=== PATIENT | male | born 1960 | race Caucasian/White ===

== ENCOUNTER 2017-08-15 18:11 | Inpatient (IN) | payer MEDICARE, OTHER ==
[2017-08-15 18:50] LABS: % BASOPHILS 1.2 % (0.0-2.0); % EOSINOPHILS 2.5 % (0.0-5.0); % LYMPHOCYTES 40.7 % (20.0-50.0); % MONOCYTES 8.7 % (2.0-10.0); % NEUTROPHILS 46.9 % (40.0-80.0); BASOPHILE ABSOLUTE 0.1 Th/cumm (0-0.2); EOSINOPHILE ABSOLUTE 0.2 Th/cmm (0.1-0.4); HEMATOCRIT 36.7 % (41.0-60); HEMOGLOBIN 12.5 gm/dL (12-16); LYMPHOCYTE ABSOLUTE 3.1 Th/cmm (1.5-3.0); MEAN CELL VOLUME 93.6 fl (80-99); MEAN CORPUSCULAR HEMOGLOBIN 31.7 pg (26.0-30.0); MEAN CORPUSCULAR HGB CONC 33.9 pg (28.0-36.0); MEAN PLATELET VOLUME 7.8 fl; MONOCYTE ABSOLUTE 0.7 Th/cmm (0.3-1.0); NEUTROPHILE ABSOLUTE 3.5 Th/cmm (1.8-8.0); PLATELET COUNT 208 Th/cmm (150-400); RED BLOOD COUNT 3.93 Mil/cmm (4.30-5.70); WHITE BLOOD COUNT 7.6 Th/cmm (4.8-10.8)
--- NOTE | 2017-08-15 19:01 | ED Physician Chart ---
ED Chief Complaint/HPI - Patient Information Date Seen:: 08/15/17 Time Seen:: 18:57 Chief Complaint:: Psychosis History of Present Illness:: 57 yo male who is a resident at a care facility. He was brought to ER for further evaluation due to increased agitation and refusal of medical care. He has history of schizophrenia, hypertension, substance abuse and dementia. Allergies:: Allergies Allergy/AdvReac Type Severity Reaction Status Date / Time No Known Allergies Allergy Verified 08/15/17 18:19 Vitals:: Vital Signs - 8 hr 08/15/17 18:19 Temp 97.7 F HR 67 RR 16 BP 149/9 O2 Sat % 98 ED Review of Systems - Review of Systems General/Constitutional: No fever, No chills Skin: No skin lesions Eyes: No loss of vision ENT: No earache Neck: No neck pain Cardio Vascular: No chest pain Pulmonary: No SOB GI: No nausea, No vomiting Psychiatric: Prior psych history, Anxiety Neurological: No focal symptoms ED Past Medical History - Past Medical History Past Medical History: HTN, Other (schizophrenia, substance abuse, and dementia) Social History: Smoker, Alcohol, Illicit Drug Use Surgical History: None Family Medical History - Family Member Mother History Unknown: Yes ED Physical Exam - Physical Examination General/Constitutional: Awake, Alert Other Gen/Cons comments:: oriented to self only Other Head comments:: right frontal abrasion Eyes: PERRL, EOMI ENMT: External ears, nose nl Neck: Full ROM w/o pain Respiratory: Clear to Auscultation, No Wheeze/Rhonchi/Rales Cardio Vascular: RRR, No murmur, gallop, rubs, NL S1 S2 GI: No tenderness/rebounding/guarding Extremities: normal strength in all extremities Other Neuro/Psych comments:: Oriented to self only, follows command, noncoherent speech ED Labs/Radiology/EKG Results - Lab Results Results: Laboratory Tests 08/15/17 18:42 WBC 7.6 RBC 3.93 L Hgb 12.5 Hct 36.7 L MCV 93.6 MCH 31.7 H MCHC Differential 33.9 RDW 14.0 Plt Count 208 MPV 7.8 Neutrophils % 46.9 Lymphocytes % 40.7 Monocytes % 8.7 Eosinophils % 2.5 Basophils % 1.2 ED Assessment - Assessment General Assessment: 57 yo male has schizophrenia with increased agitation due to UTI. He also has hypokalemia, hypertension, and dementia. Critical Care Time: 45 min Excludes all billable procedures: Yes This condition life threatening/high prob of deterioration: No Assessment/Comments:: CBC, CMP, UA, urine drug screen CXR, EKG [facility] ED Septic Shock - . Is Septic Shock (SBP<90, OR Lactate>4 mmol\L) present?: No - <6hrs of presentation: Vital Signs: Vital Signs - 8 hr 08/15/17 18:19 Temp 97.7 F HR 67 RR 16 BP 149/9 O2 Sat % 98 ED Discharge Plan - Patient Disposition
[2017-08-15 19:06] LABS: ALB/GLOB RATIO 1.2 (1.0-1.8); ALBUMIN 4.3 gm/dL (4.2-5.5); ALKALINE PHOSPHATASE 63 U/L (34-104); ANION GAP 9.1 (7.0-16.0); BILIRUBIN,TOTAL 0.8 mg/dL (0.3-1.0); BUN - UREA NITROGEN 27 mg/dL (7-25); CALCIUM SERUM 9.5 mg/dL (8.6-10.3); CARBON DIOXIDE 25.7 mEq/L (21.0-31.0); CHLORIDE 104 mEq/L (98-107); CREATININE - SERUM 1.4 mg/dL (0.7-1.3); GFR AFRICAN-AMERICAN > 60.0 ml/min (>90); GFR NON AFRICAN-AMERICAN 55.1 ml/min; GLUCOSE 85 mg/dL (70-105); SGOT 50 U/L (13-39); SGPT/ALT 57 U/L (7-52); SODIUM SERUM 136 mEq/L (136-145); TOTAL PROTEIN,SERUM 7.9 gm/dL (6.0-8.3)
[2017-08-15 19:10] LABS: POTASSIUM SERUM 2.8 mEq/L (3.5-5.1)
[2017-08-15] MEDS ORDERED: Potassium Chloride 20 mEq ER Tab PO ONE ×6 (19:18→23:18)
[2017-08-15 19:44] LABS: URINE MICROSCOPIC INDICATED? YES; URINE SOURCE RANDOM
[2017-08-15 19:48] LABS: URINE BILIRUBIN SMALL (NEGATIVE); URINE BLOOD LARGE (NEGATIVE); URINE GLUCOSE (UA) NEGATIVE (NEGATIVE); URINE KETONE NEGATIVE (NEGATIVE); URINE LEUKOCYTE ESTERASE LARGE (NEGATIVE); URINE NITRATE NEGATIVE (NEGATIVE); URINE PH 6.5 (4.6 - 8.0); URINE PROTEIN 100 mg/dL (NEGATIVE)
[2017-08-15 19:56] LABS: AMPHETAMINE URINE NEGATIVE (NEGATIVE); BARBITURATES URINE NEGATIVE (NEGATIVE); BENZODIAZEPINES QUAL URINE POSITIVE (NEGATIVE); CANNABINOID THC NEGATIVE (NEGATIVE); COCAINE METABOLITE QUAL URINE NEGATIVE (NEGATIVE); METHADONE URINE NEGATIVE (NEGATIVE); METHAMPHETAMINES QUAL URINE NEGATIVE (NEGATIVE); OPIATES (MORPHINE) QUAL. URINE POSITIVE (NEGATIVE); PHENCYCLIDINE (PCP) URINE NEGATIVE (NEGATIVE); TRICYCLICS (TCA) QUAL. URINE NEGATIVE (NEGATIVE)
[2017-08-15 19:57] LABS: URINE BACTERIA MODERATE /hpf (NONE SEEN); URINE CLARITY HAZY (CLEAR); URINE COLOR BROWN; URINE EPITHELIAL CELLS FEW /lpf (FEW); URINE RBC >100 /hpf (0-5)
[2017-08-15 19:58] LABS: URINE WBC 50-100 /hpf (0-5)
[2017-08-15] MEDS ORDERED: cefTRIAXone 1 GM in Sodium Chloride 0.9% 50 ML IV ONE (20:29)
[2017-08-15 22:24] VITALS: BP 137/76
[2017-08-15] MEDS ORDERED: Hydrocodone/APAP 5mg/325mg Tab PO PRN ×4 (22:54→23:07)
[2017-08-15] MEDS ORDERED: Magnesium Hydroxide (MOM) 30 mL UDC PO PRN ×2 (23:11)
[2017-08-16] MEDS: Levothyroxine 0.075 Mg Tab PO SCH ×2 (07:11)
--- NOTE | 2017-08-16 07:42 | Diagnostic Imaging Report ---
Portable chest x-ray Time: 1832 hours History: Psychosis Allowing for portable technique the heart size is normal. No focal pulmonary parenchymal processes. No hilar or mediastinal abnormalities. There is evidence for ill-defined 1 cm nodularity overlying the right upper lung. Clinical correlation and comparison with study is recommended. If old studies are not studies available for review CT examination of chest might be helpful. Impression: Ill-defined 1 cm nodularity right upper chest, CT examination recommended.
[2017-08-16] MEDS: Vitamin B Complex w/Vitamin C Tab PO SCH ×2 (08:39)
[2017-08-16] MEDS: Multivitamin w/ Minerals Tab PO SCH ×2 (08:39)
[2017-08-16] MEDS ORDERED: buPROPion XL 150 mg T 24 H PO SCH ×2 (09:00)
[2017-08-16] MEDS ORDERED: Sulfamethoxazole/TMP 800/160mg Tab PO SCH ×2 (09:00)
[2017-08-16 09:23] LABS: % BASOPHILS 1.4 % (0.0-2.0); % EOSINOPHILS 4.1 % (0.0-5.0); % LYMPHOCYTES 31.1 % (20.0-50.0); % MONOCYTES 6.9 % (2.0-10.0); % NEUTROPHILS 56.5 % (40.0-80.0); BASOPHILE ABSOLUTE 0.1 Th/cumm (0-0.2); EOSINOPHILE ABSOLUTE 0.3 Th/cmm (0.1-0.4); HEMATOCRIT 39.7 % (41.0-60); HEMOGLOBIN 13.1 gm/dL (12-16); MEAN CORPUSCULAR HEMOGLOBIN 31.4 pg (26.0-30.0); MEAN CORPUSCULAR HGB CONC 33.1 pg (28.0-36.0); MEAN PLATELET VOLUME 7.7 fl; MONOCYTE ABSOLUTE 0.4 Th/cmm (0.3-1.0); NEUTROPHILE ABSOLUTE 3.7 Th/cmm (1.8-8.0); PLATELET COUNT 216 Th/cmm (150-400); RED BLOOD COUNT 4.17 Mil/cmm (4.30-5.70); RED CELL DISTRIBUTION WIDTH 13.9 % (11.5-20.0); WHITE BLOOD COUNT 6.5 Th/cmm (4.8-10.8)
[2017-08-16 10:11] LABS: ALB/GLOB RATIO 1.1 (1.0-1.8); ALBUMIN 4.3 gm/dL (4.2-5.5); ALKALINE PHOSPHATASE 65 U/L (34-104); ANION GAP 8.9 (7.0-16.0); BILIRUBIN,TOTAL 1.1 mg/dL (0.3-1.0); BUN - UREA NITROGEN 23 mg/dL (7-25); CALCIUM SERUM 9.5 mg/dL (8.6-10.3); CARBON DIOXIDE 24.7 mEq/L (21.0-31.0); CHLORIDE 108 mEq/L (98-107); CREATININE - SERUM 1.1 mg/dL (0.7-1.3); GFR AFRICAN-AMERICAN > 60.0 ml/min (>90); GFR NON AFRICAN-AMERICAN > 60.0 ml/min; GLUCOSE 134 mg/dL (70-105); POTASSIUM SERUM 3.6 mEq/L (3.5-5.1); SGOT 52 U/L (13-39); SGPT/ALT 62 U/L (7-52); SODIUM SERUM 138 mEq/L (136-145); TOTAL PROTEIN,SERUM 8.2 gm/dL (6.0-8.3)
--- NOTE | 2017-08-16 11:35 | Diagnostic Imaging Report ---
Exam: CT examination of the chest HISTORY: Right upper lobe nodule. Total DLP equals 220 CTDI equals 5.2 Findings: Multiple contiguous thin section of the chest were obtained from thoracic outlet to the upper abdomen without the administration of contrast material. No prior studies available comparison. The study demonstrates nodularities with spiculation the right upper lobe measuring 1.7cm and 2.4 cm diameter., The study demonstrate evidence of spiculated nodularity in the left upper lung measuring 1 cm diameter. There is evidence for small subcentimeter nodularities in the left mid lung field. The findings suggestive of neoplastic metastatic disease. No acute pulmonic infiltrates or effusions are noted. Mediastinal structures midline. No abnormal mediastinal adenopathy appreciated, but limited due to lack of contrast material. Normal appearance of great vessels of the neck appreciated. Adenopathy is difficult to exclude due to lack of contrast material. The visualized bony thorax demonstrate no evidence for lytic or blastic lesions. The liver demonstrates low density lesion in the posterior aspect of right lobe of liver measuring 2.5 cm diameter most likely represent cysts but neoplastic component cannot be excluded without the administration of contrast material. The adrenal glands demonstrate the small nodularity in the left adrenal gland approximately 1 cm diameter. The pancreas is diffusely calcified from previous inflammatory changes. There is a large staghorn calculus in the right kidney without obstruction. IMPRESSION: Bilateral metastatic nodularity is high suspicious for neoplastic metastatic process. Right upper lobe masses suspicious for neoplastic metastatic process. Left upper lobe nodule suspicious for neoplastic process. Small subcentimeter nodules in the left mid lower lung.
--- NOTE | 2017-08-16 15:43 | History & Physical ---
ADMIT DATE: INTERNAL MEDICINE CONSULT REFERRING PHYSICIAN: Dr. Volodymyr Pa M.D.. REASON FOR CONSULT: Management of hypertension, UTI, history of dementia. HISTORY OF PRESENT ILLNESS: This is a 57-year-old male who was transferred from care facility with acute psychosis. He does have a history of schizophrenia, dementia, and substance abuse, essential hypertension. The patient is extremely confused, walking in the hallways and not able to provide any significant history. PERTINENT FINDINGS ON LABORATORY WORK: Include a potassium of 2.8, a BUN of 27, and a creatinine of 1.7. AST 50, ALT 57. UA positive for protein, large blood, small bilirubin, large leukocyte esterase, over 100 rbc's, 50-100 wbc's. The patient has been admitted to the [facility] for further management and care. PAST MEDICAL HISTORY: As noted above. History also of anxiety, insomnia, history of previous trauma, history of extrapyramidal and movement disorder, history of ataxia, and muscle weakness. PAST SURGICAL HISTORY: Unknown. FAMILY HISTORY: Likely noncontributory. SOCIAL HISTORY: Unknown as the patient is not able to answer. ALLERGIES: NKDA. OUTPATIENT MEDICATIONS: Albuterol metered dose inhaler 2 puffs every 6 hours as needed, amlodipine 10 daily, Dulcolax 10 mg per rectum q. 72 hours p.r.n. for constipation, Wellbutrin XL 300 mg every day, BuSpar 5 mg t.i.d., clonazepam 2 mg b.i.d., clonidine 0.1 q. 6 hours p.r.n. for SBP greater than 160, hydrochlorothiazide 25 every day, [place] 5/325 one tab q. 4 hours p.r.n. for severe pain, Synthroid 75 mcg daily, Namenda 10 mg every day, multivitamins and minerals daily, Risperdal 2 mg daily and 3 mg at bedtime, Bactrim 1 tab b.i.d., Artane 5 mg b.i.d., vitamin B complex 1 tab every day, Ambien 5 mg at bedtime. REVIEW OF SYSTEMS: A good review of systems was not able to be done given the patient's condition, but he denies any fever or chills. CARDIOVASCULAR: He denies any chest pain or palpitations. PULMONARY: No shortness of breath, no cough. GASTROINTESTINAL: No bowel habit changes. GENITOURINARY: No bladder habit changes. PHYSICAL EXAMINATION: VITAL SIGNS: Temperature 98.0, pulse 66, respirations 20, blood pressure 145/87, satting 98% on room air. GENERAL: Well-nourished, thin male, somewhat disheveled, not in acute distress. HEAD AND NECK: Normocephalic, atraumatic. Pupils reactive to light. Extraocular movements are intact. Oropharynx is moist and clear. CARDIAC: Regular rate and rhythm without any murmurs. S1 and S2 present. LUNGS: Decreased at the bases, but clear to auscultation bilaterally. ABDOMEN: Soft, supple, nontender, nondistended, normoactive bowel sounds. EXTREMITIES: Lower extremities, no pedal edema. NEUROLOGIC: Appears to be intact and nonfocal. LABORATORY DATA: Please refer to the HPI. U-tox was positive for opiates and benzos. There was x-ray done on admission showing ill-defined 1 cm nodularity in the right upper chest. CT examination is recommended. ASSESSMENT: 1. Acute psych decompensation. 2. History of schizophrenia. 3. History of dementia. 4. Essential hypertension.5. Hypokalemia. 6. UTI. 7. Right upper chest nodule. 8. Dehydration/azotemia. PLAN: The patient has been admitted to the [facility] for further management and care. The patient is to continue with current medications as scheduled including his antihypertensives. Given UA results, I will switch the patient to Cipro 250 b.i.d. for 7 days and I will encourage fluid p.o. intake given his renal or his azotemia. Pt will be encouraged to increase p.o. fluid intake. His potassium will be repleted and I will order a CT of the chest to further eval on the right upper lobe nodule. JOB# [id number] NAHOMY
--- NOTE | 2017-08-17 02:12 | Psychosocial Evaluation ---
DATE OF SERVICE: 08/16/2017 IDENTIFYING DATA: The patient is a 57-year-old male, resident of [facility]. Information obtained by directly interviewing the patient and reviewing the admission papers. JUSTIFICATION FOR HOSPITALIZATION: The patient is admitted on a voluntary basis in view of his acute agitation and threatening behavior. CHIEF COMPLAINT: "I don't care. I do not have may phone, give me the one right away." HISTORY OF PRESENT ILLNESS: This is the second psychiatric hospitalization to [facility] for this patient who is reported to have been diagnosed to have schizoaffective disorder and the patient is reported to have been threatening and getting easily agitated. Prior to the hospitalization, the patient is reported to have been on the Risperdal as well as the Wellbutrin. The patient is also stating that he is taking 2 mg 3 times a day of the Klonopin. The patient at this time is going to be of control. PAST PSYCHIATRIC HISTORY: Please refer to the above medical history. Physical examination is requested and done by Dr. Gale. SUBSTANCE ABUSE HISTORY: The patient denies use of any drugs or alcohol. LEGAL PROBLEMS: None at this time. STRENGTH AND ASSETS: The patient is motivated. MENTAL STATUS EXAMINATION: The patient is a 57-year-old, looking his stated age, getting easily irritable and angry. Affect is constricted. Insight and judgment at this time are noted to be very much impaired. Impulse control seems to be poor. Coping skills are also noted to be very poor. The patient has been very paranoid and demanding. The patient is not able to contract for safety. The patient's behavior is likely danger to self and others. The patient, however, is alert and oriented x 3. Insight and judgment are very much impaired. Impulse control seems to be very poor. DIAGNOSTIC IMPRESSION: AXIS I. Schizoaffective disorder. AXIS II: None. AXIS III: As per Dr. Gale. IMMEDIATE TREATMENT PLAN: The patient is going to be continued on the Risperdal 2 mg twice a day and the patient's Wellbutrin is going to be gradually decrease to 150 mg once a day, Klonopin is going to be given 0.5 mg twice a day and the patient is going to be closely monitored. Once stabilized, the patient is going to be discharged [facility] to be followed up on an outpatient basis. ESTIMATED LENGTH OF STAY: Length of stay 5-7 days. JOB# [id number]
[2017-08-17] MEDS: Levothyroxine 0.075 Mg Tab PO SCH ×2 (06:45)
[2017-08-17] MEDS: Vitamin B Complex w/Vitamin C Tab PO SCH ×2 (09:22)
[2017-08-17] MEDS: buPROPion XL 150 mg T 24 H PO SCH ×2 (09:22)
[2017-08-17] MEDS: Multivitamin w/ Minerals Tab PO SCH ×2 (09:24)
[2017-08-17 09:49] LABS: ANION GAP 7.8 (7.0-16.0); BUN - UREA NITROGEN 21 mg/dL (7-25); CALCIUM SERUM 9.6 mg/dL (8.6-10.3); CARBON DIOXIDE 27.6 mEq/L (21.0-31.0); CHLORIDE 107 mEq/L (98-107); GFR AFRICAN-AMERICAN > 60.0 ml/min (>90); GFR NON AFRICAN-AMERICAN > 60.0 ml/min; GLUCOSE 91 mg/dL (70-105); POTASSIUM SERUM 3.4 mEq/L (3.5-5.1); SODIUM SERUM 139 mEq/L (136-145)
[2017-08-17] MEDS ORDERED: IOHEXOL 300MG/ML 100 ML VIAL PO ONE ×2 (13:40)
--- NOTE | 2017-08-17 15:04 | Consultation ---
DATE OF CONSULTATION: 08/17/2017 HEMATOLOGY AND ONCOLOGY CONSULTATION REFERRING PHYSICIAN: Dr. Gale. REASON FOR CONSULTATION Lung masses and liver mass, likely metastatic cancer. HISTORY OF PRESENT ILLNESS: The patient is a 57-year-old male with psychosis, hospitalized in the Geropsych unit because of acute psychosis. He has history of schizophrenia, dementia, substance abuse, and his CT scan of the chest showed bilateral upper lobe spiculated lesions and resection through the liver also showed lesion in the right posterior lobe. Therefore, I was asked to evaluate. PAST MEDICAL HISTORY: Anxiety, insomnia, ataxia, muscle weakness. PAST SURGICAL HISTORY: Unknown. SOCIAL HISTORY: Unknown. FAMILY HISTORY: Unknown, the patient is not able to provide any history. History is gathered from the records. PHYSICAL EXAMINATION: GENERAL: He is awake, disheveled. VITAL SIGNS: Stable. HEENT: No evidence of peripheral lymphadenopathy, no cranial nerve palsy. LUNGS: Decreased air entry. ABDOMEN: Soft. No palpable mass. EXTREMITIES: No edema. NERVOUS SYSTEM: Moves 4 extremities. No focal deficits. LABORATORY DATA: CT scan of the chest without contrast showed bilateral upper lobe spiculated nodules and 2.5 cm lesion in the right lobe posterior part. Elevated AST and ALT. Normal CBC. Urinalysis, no evidence of UTI. ASSESSMENT: Bilateral spiculated nodule in both upper lobes of the lung and a 2.5 cm lesion in the right lobe of the liver recently suspicion of metastatic disease. A repeat CT of the abdomen with 3-phase contrast will be required to evaluate for possible hepatoma. I will also obtain alpha fetoprotein and see if the alpha fetoprotein is elevated markedly and the radiological findings are suggestive of hepatoma, then further biopsy is required. However, if there is inconsistency in the results, then CT-guided biopsy from the right lobe of liver lesion will be required to obtain tissue diagnosis. Thank you, Dr. Gale for the opportunity to participate in the care of this interesting case. [facility]# [id number]
[2017-08-17] MEDS ORDERED: Probiotic Screen MC PRN ×2 (17:15)
--- NOTE | 2017-08-17 21:05 | Progress Notes ---
DATE: 08/17/2017 Staff was spoken to. The patient is interviewed. Mood is noted to be irritable. Affect is constricted. The patient is not making much sense. Insight and judgment at this time are noted to be very much impaired. The patient is going on a tangent. Coping skills are noted to be extremely poor. Sleep and appetite are also noted to be poor. The patient has no insight into his illness. Tend to scream and yell at this time. ASSESSMENT: The patient is still grossly psychotic. PLAN: To continue the patient with the current medications. I encouraged the patient to verbalize the concerns. The patient's blood work has been reviewed and is indicating potassium is noted to be low at 2.8, came to 3.6, BUN is noted to be 27, AST is noted to be 50, ALT is noted 57. The patient is going to be closely monitored and encouraged to verbalize the concerns. The patient's urine drug screen is noted to be positive for opiates and benzodiazepines. The patient is still impulsive and psychotic. Plan to continue the patient with the current medications and follow with the supportive therapy. JOB# [id number]
[2017-08-18] MEDS: Levothyroxine 0.075 Mg Tab PO SCH ×2 (06:41)
[2017-08-18] MEDS: Vitamin B Complex w/Vitamin C Tab PO SCH ×2 (08:54)
[2017-08-18] MEDS: buPROPion XL 150 mg T 24 H PO SCH ×2 (08:55)
[2017-08-18] MEDS: Multivitamin w/ Minerals Tab PO SCH ×2 (08:55)
--- NOTE | 2017-08-18 09:31 | Diagnostic Imaging Report ---
CT abdomen and pelvis without and with intravenous contrast Indication: Liver mass, rule out hepatoma Comparison: CT of the chest performed on 08/16/2017, Technique: Axial images were obtained from the lung bases to the bilateral proximal femurs before and following admission of IV contrast including portal venous and delayed phase images. Total DLP 1101, CTD I 28 Findings: Hypoventilatory and atelectatic changes of the lung bases are noted. There is a lobulated 3 x 2.5 cm low-density mass with Hounsfield units consistent with fluid within the right lobe of the liver. Additional subcentimeter low-density lesions are noted, too small to characterize. No evidence of focal splenic lesions. Extensive pancreatic calcifications sequela of old chronic pancreatitis. There is slight prominence of the left lobe of the adrenal gland without evidence of discrete nodule. Multiple bilateral renal cysts are noted and additional low-density lesions too small to characterize is suggestive of cysts. Staghorn Right renal calculus is noted. There is mild right hydronephrosis with areas of cortical thinning seen anteriorly. Mild atherosclerosis is noted. No associated free air or free fluid. Copious stool is seen throughout the colon. No evidence of mesenteric lymphadenopathy. Mild urinary bladder wall thickening is noted. Prostate gland calcifications are noted. Degenerative changes of the spine are noted. IMPRESSION: 3 x 2.5 cm lobulated low-density lesion within the dome of the right lobe of the liver. This lesion demonstrates fluid density without evidence of enhancement and is most suggestive of a liver cyst. Additional subcentimeter low-density lesions are too small to characterize but may represent small cysts. Correlation with liver function tests is recommended. A follow-up CT examination or ultrasound examination in 2-3 months is suggested to ensure long-term stability. Staghorn Right renal calculus with mild right hydronephrosis. Multiple bilateral renal cysts and additional subcentimeter low-density lesions too small to characterize but suggestive of cysts Mild prominence of the left adrenal gland without evidence of a discrete nodule. Extensive pancreatic calcifications occult chronic pancreatitis. Copious amount of stool noted. Mild urinary bladder wall thickening which may be due to chronic inflammatory process.
[2017-08-18] MEDS: Lactobacillus Rhamnosus 10 Billion CFU Capsule PO SCH ×2 (10:30)
[2017-08-18] MEDS ORDERED: Potassium Chloride 20 mEq ER Tab PO ONE ×2 (10:33)
[2017-08-18 11:10] LABS: HEP B CORE IGM Negative (Negative); HEP B SURFACE AB QUANT 5.3 mIU/mL (Immunity>9.9); HEP B SURFACE AG QL Negative (Negative)
[2017-08-18 12:27] LABS: HEP C RNA bDNA QN SEE REF. LAB REPORT
--- NOTE | 2017-08-18 12:27 | General Progress Note ---
Subjective - Review of Systems Service Date: 08/18/17 Objective - Results Result Diagrams: 08/16/17 09:10 08/17/17 09:20 Recent Labs: Laboratory Last Values WBC 6.5 Th/cmm (4.8-10.8) 08/16/17 09:10 RBC 4.17 Mil/cmm (4.30-5.70) L 08/16/17 09:10 Hgb 13.1 gm/dL (12-16) 08/16/17 09:10 Hct 39.7 % (41.0-60) L 08/16/17 09:10 MCV 95.0 fl (80-99) 08/16/17 09:10 MCH 31.4 pg (26.0-30.0) H 08/16/17 09:10 MCHC Differential 33.1 pg (28.0-36.0) 08/16/17 09:10 RDW 13.9 % (11.5-20.0) 08/16/17 09:10 Plt Count 216 Th/cmm (150-400) 08/16/17 09:10 MPV 7.7 fl 08/16/17 09:10 Neutrophils % 56.5 % (40.0-80.0) 08/16/17 09:10 Lymphocytes % 31.1 % (20.0-50.0) 08/16/17 09:10 Monocytes % 6.9 % (2.0-10.0) 08/16/17 09:10 Eosinophils % 4.1 % (0.0-5.0) 08/16/17 09:10 Basophils % 1.4 % (0.0-2.0) 08/16/17 09:10 Sodium 139 mEq/L (136-145) 08/17/17 09:20 Potassium 3.4 mEq/L (3.5-5.1) L 08/17/17 09:20 Chloride 107 mEq/L (98-107) 08/17/17 09:20 Carbon Dioxide 27.6 mEq/L (21.0-31.0) 08/17/17 09:20 Anion Gap 7.8 (7.0-16.0) 08/17/17 09:20 BUN 21 mg/dL (7-25) 08/17/17 09:20 Creatinine 1.0 mg/dL (0.7-1.3) 08/17/17 09:20 Est GFR ( Amer) > 60.0 ml/min (>90) 08/17/17 09:20 Est GFR (Non-Af Amer) > 60.0 ml/min 08/17/17 09:20 BUN/Creatinine Ratio 21.0 08/17/17 09:20 Glucose 91 mg/dL (70-105) 08/17/17 09:20 Hemoglobin A1c % 5.0 % (4.0-6.0) 08/15/17 18:42 Calcium 9.6 mg/dL (8.6-10.3) 08/17/17 09:20 Magnesium 2.0 mg/dL (1.9-2.7) 08/17/17 09:20 Total Bilirubin 1.1 mg/dL (0.3-1.0) H 08/16/17 09:10 AST 52 U/L (13-39) H 08/16/17 09:10 ALT 62 U/L (7-52) H 08/16/17 09:10 Alkaline Phosphatase 65 U/L (34-104) 08/16/17 09:10 Troponin I < 0.01 ng/mL (0.01-0.05) L 08/15/17 18:42 B-Natriuretic Peptide 21.3 pg/mL (5.0-100.0) 08/15/17 18:42 Total Protein 8.2 gm/dL (6.0-8.3) 08/16/17 09:10 Albumin 4.3 gm/dL (4.2-5.5) 08/16/17 09:10 Globulin 3.9 gm/dL 08/16/17 09:10 Albumin/Globulin Ratio 1.1 (1.0-1.8) 08/16/17 09:10 Tumor Marker AFP 2.2 ng/mL (0.0-8.3) 08/17/17 09:20 Carcinoembryonic Ag 2.9 ng/mL (0.0-4.7) 08/17/17 09:20 Urine Source RANDOM 08/15/17 18:49 Urine Color BROWN 08/15/17 18:49 Urine Clarity HAZY (CLEAR) 08/15/17 18:49 Urine pH 6.5 (4.6 - 8.0) 08/15/17 18:49 Ur Specific [place] 1.025 (1.005-1.030) 08/15/17 18:49 Urine Protein 100 mg/dL (NEGATIVE) H 08/15/17 18:49 Urine Glucose (UA) NEGATIVE mg/dL (NEGATIVE) 08/15/17 18:49 Urine Ketones NEGATIVE mg/dL (NEGATIVE) 08/15/17 18:49 Urine Blood LARGE (NEGATIVE) H 08/15/17 18:49 Urine Nitrate NEGATIVE (NEGATIVE) 08/15/17 18:49 Urine Bilirubin SMALL (NEGATIVE) H 08/15/17 18:49 Urine Urobilinogen 1.0 E.U./dL (0.2 - 1.0) 08/15/17 18:49 Ur Leukocyte Esterase LARGE (NEGATIVE) H 08/15/17 18:49 Urine RBC >100 /hpf (0-5) H 08/15/17 18:49 Urine WBC 50-100 /hpf (0-5) H 08/15/17 18:49 Ur Epithelial Cells FEW /lpf (FEW) 08/15/17 18:49 Urine Bacteria MODERATE /hpf (NONE SEEN) 08/15/17 18:49 Urine Opiates Screen POSITIVE (NEGATIVE) H 08/15/17 18:49 Urine Methadone Screen NEGATIVE (NEGATIVE) 08/15/17 18:49 Ur Barbiturates Screen NEGATIVE (NEGATIVE) 08/15/17 18:49 Ur Tricyclics Screen NEGATIVE (NEGATIVE) 08/15/17 18:49 Ur Phencyclidine Scrn NEGATIVE (NEGATIVE) 08/15/17 18:49 Amphetamines Screen NEGATIVE (NEGATIVE) 08/15/17 18:49 U Methamphetamines Scrn NEGATIVE (NEGATIVE) 08/15/17 18:49 U Benzodiazepines Scrn POSITIVE (NEGATIVE) H 08/15/17 18:49 U Cocaine Metab Screen NEGATIVE (NEGATIVE) 08/15/17 18:49 U Cannabinoids Screen NEGATIVE (NEGATIVE) 08/15/17 18:49 Hep Bs Antigen Negative (Negative) 08/17/17 09:20 Hep Bs Antibody, Quant 5.3 mIU/mL (Immunity>9.9) L 08/17/17 09:20 Hep B Core IgM Ab Negative (Negative) 08/17/17 09:20 - Physical Exam Vitals and I&O: Vital Signs Temp 97.9 F 08/18/17 06:48 Pulse 79 08/18/17 06:48 Resp 20 08/18/17 08:00 BP 134/73 08/18/17 06:48 Pulse Ox 98 08/18/17 06:48 Intake & Output 08/17/17 08/18/17 08/18/17 18:59 06:59 18:59 Intake Total 1100 120 Balance 1100 120 Weight (lbs) 68.492 kg Intake: Oral 1100 120 Other: # Voids 4 3 # Bowel Movements 1 Active Medications: Current Medications Acetaminophen (Tylenol) 650 mg PO Q4HR PRN PRN Reason: Mild Pain / Temp above 100 Stop: 10/14/17 23:10 Acetaminophen/Hydrocodone Bitart ([place] 5mg/325mg) 1 tab PO Q4H PRN PRN Reason: Pain (Moderate) Stop: 10/14/17 23:06 Last Admin: 08/16/17 01:53 Dose: 1 tab Amlodipine Besylate (Norvasc) 10 mg PO DAILY [facility] Stop: 10/15/17 08:59 Last Admin: 08/17/17 10:40 Dose: Not Given Bisacodyl (Dulcolax 10 Mg Supp) 10 mg RC DAILY PRN PRN Reason: Constipation Stop: 10/14/17 22:42 Bupropion HCl (Wellbutrin Xl) 150 mg PO DAILY KRISTY PRN Reason: Protocol Stop: 10/15/17 08:59 Last Admin: 08/18/17 08:55 Dose: 150 mg Buspirone HCl (Buspar) 10 mg PO TID KRISTY PRN Reason: Protocol Stop: 10/15/17 08:59 Last Admin: 08/18/17 08:54 Dose: 10 mg Ciprofloxacin (Cipro) 250 mg PO BID [facility] Stop: 10/15/17 10:14 Last Admin: 08/18/17 08:55 Dose: 250 mg Clonazepam (Klonopin) 0.5 mg PO BID PRN; Protocol PRN Reason: Anxiety Stop: 10/15/17 08:59 Last Admin: 08/17/17 10:47 Dose: 0.5 mg Hydrochlorothiazide (Hctz) 25 mg PO DAILY [facility] Stop: 10/15/17 08:59 Last Admin: 08/17/17 09:22 Dose: 25 mg Lactobacillus Rhamnosus (Culturelle) 1 each PO DAILY [facility] Stop: 10/17/17 08:59 Levothyroxine Sodium (Synthroid) 0.075 mg PO QDAC KRISTY Stop: 10/15/17 07:29 Last Admin: 08/18/17 06:41 Dose: 0.075 mg Lorazepam (Ativan) 0.5 mg PO Q4HR PRN; Protocol PRN Reason: Agitation Stop: 10/16/17 10:52 Last Admin: 08/17/17 11:19 Dose: 0.5 mg Magnesium Hydroxide (Milk Of Magnesia) 30 ml PO HS PRN PRN Reason: Constipation Miscellaneous (Probiotic Screen) 1 ea [facility] PRN PRN PRN Reason: PROTOCOL Stop: 10/16/17 17:14 Risperidone (Risperdal) 2 mg PO BID KRISTY PRN Reason: Protocol Stop: 10/15/17 16:59 Last Admin: 08/18/17 09:08 Dose: 1 mg Vitamin B Complex/Vit C/Folic Acid (Vitamin B Complex W/Vitamin C) 1 tab PO DAILY KRISTY Stop: 10/15/17 08:59 Last Admin: 08/18/17 08:54 Dose: 1 tab Zolpidem Tartrate (Ambien) 5 mg PO HS PRN PRN Reason: Insomnia Stop: 10/14/17 20:32 Last Admin: 08/16/17 21:18 Dose: 5 mg - Procedures Procedures: Procedures Procedure Code Date INDIVID PSYCHOTHERAP NEC 94.39 09/27/08 OTHER GROUP THERAPY 94.44 10/14/08 RECREATIONAL THERAPY 93.81 10/14/08 Assessment/Plan - Problem List Patient Problems: All Active Problems AGITATION AND UNCOOPERATIVE WITH CARE (Acute) - Assessment Assessment: * Multiple spiculated lung nodules, likely malignant * Liver cyst. CT contrast showed no evidence of mass * Psychosis Will need biopsy from lung nodules by radiologist
[2017-08-18 13:45] LABS: INR 1.08 (0.5-1.4); PROTHROMBIN TIME (TEST) 11.2 SECONDS (9.5-11.5)
[2017-08-18] MEDS ORDERED: Haloperidol Lactate 5 mg/mL 1mL Vial ONE ×2 (17:04)
[2017-08-18] MEDS ORDERED: Haloperidol Lactate 5 mg/mL 1mL Vial IM ONE ×2 (17:04)
--- NOTE | 2017-08-18 17:49 | Progress Notes ---
DATE: 08/18/2017 SUBJECTIVE: Staff was spoken to. The patient is interviewed. Mood is noted to be irritable. Affect is constricted. Insight and judgment are noted to be still impaired. Impulse control seems to be limited. Continues to be very paranoid and pacing most of the time on the unit. No side effects to the medications are noted. ASSESSMENT: The patient is still psychotic and impulsive. PLAN: To continue the patient with the current medications and follow. JOB# [id number]
[2017-08-19] MEDS: Levothyroxine 0.075 Mg Tab PO SCH ×2 (06:36)
[2017-08-19] MEDS: Multivitamin w/ Minerals Tab PO SCH ×2 (09:55)
[2017-08-19] MEDS: Vitamin B Complex w/Vitamin C Tab PO SCH ×2 (09:56)
[2017-08-19] MEDS: buPROPion XL 150 mg T 24 H PO SCH ×2 (09:59)
[2017-08-19] MEDS: Lactobacillus Rhamnosus 10 Billion CFU Capsule PO SCH ×2 (10:00)
--- NOTE | 2017-08-19 15:25 | General Progress Note ---
Subjective - Review of Systems Service Date: 08/19/17 Objective - Results Result Diagrams: 08/16/17 09:10 08/17/17 09:20 Recent Labs: Laboratory Last Values WBC 6.5 Th/cmm (4.8-10.8) 08/16/17 09:10 RBC 4.17 Mil/cmm (4.30-5.70) L 08/16/17 09:10 Hgb 13.1 gm/dL (12-16) 08/16/17 09:10 Hct 39.7 % (41.0-60) L 08/16/17 09:10 MCV 95.0 fl (80-99) 08/16/17 09:10 MCH 31.4 pg (26.0-30.0) H 08/16/17 09:10 MCHC Differential 33.1 pg (28.0-36.0) 08/16/17 09:10 RDW 13.9 % (11.5-20.0) 08/16/17 09:10 Plt Count 216 Th/cmm (150-400) 08/16/17 09:10 MPV 7.7 fl 08/16/17 09:10 Neutrophils % 56.5 % (40.0-80.0) 08/16/17 09:10 Lymphocytes % 31.1 % (20.0-50.0) 08/16/17 09:10 Monocytes % 6.9 % (2.0-10.0) 08/16/17 09:10 Eosinophils % 4.1 % (0.0-5.0) 08/16/17 09:10 Basophils % 1.4 % (0.0-2.0) 08/16/17 09:10 PT 11.2 SECONDS (9.5-11.5) 08/18/17 13:14 INR 1.08 (0.5-1.4) 08/18/17 13:14 PTT (Actin FS) 32.3 SECONDS (26.0-38.0) 08/18/17 13:14 Sodium 139 mEq/L (136-145) 08/17/17 09:20 Potassium 3.4 mEq/L (3.5-5.1) L 08/17/17 09:20 Chloride 107 mEq/L (98-107) 08/17/17 09:20 Carbon Dioxide 27.6 mEq/L (21.0-31.0) 08/17/17 09:20 Anion Gap 7.8 (7.0-16.0) 08/17/17 09:20 BUN 21 mg/dL (7-25) 08/17/17 09:20 Creatinine 1.0 mg/dL (0.7-1.3) 08/17/17 09:20 Est GFR ( Amer) > 60.0 ml/min (>90) 08/17/17 09:20 Est GFR (Non-Af Amer) > 60.0 ml/min 08/17/17 09:20 BUN/Creatinine Ratio 21.0 08/17/17 09:20 Glucose 91 mg/dL (70-105) 08/17/17 09:20 POC Glucose 132 MG/DL (70 - 105) H 08/19/17 06:19 Hemoglobin A1c % 5.0 % (4.0-6.0) 08/15/17 18:42 Calcium 9.6 mg/dL (8.6-10.3) 08/17/17 09:20 Magnesium 2.0 mg/dL (1.9-2.7) 08/17/17 09:20 Total Bilirubin 1.1 mg/dL (0.3-1.0) H 08/16/17 09:10 AST 52 U/L (13-39) H 08/16/17 09:10 ALT 62 U/L (7-52) H 08/16/17 09:10 Alkaline Phosphatase 65 U/L (34-104) 08/16/17 09:10 Troponin I < 0.01 ng/mL (0.01-0.05) L 08/15/17 18:42 B-Natriuretic Peptide 21.3 pg/mL (5.0-100.0) 08/15/17 18:42 Total Protein 8.2 gm/dL (6.0-8.3) 08/16/17 09:10 Albumin 4.3 gm/dL (4.2-5.5) 08/16/17 09:10 Globulin 3.9 gm/dL 08/16/17 09:10 Albumin/Globulin Ratio 1.1 (1.0-1.8) 08/16/17 09:10 Tumor Marker AFP 2.2 ng/mL (0.0-8.3) 08/17/17 09:20 Carcinoembryonic Ag 2.9 ng/mL (0.0-4.7) 08/17/17 09:20 Urine Source RANDOM 08/15/17 18:49 Urine Color BROWN 08/15/17 18:49 Urine Clarity HAZY (CLEAR) 08/15/17 18:49 Urine pH 6.5 (4.6 - 8.0) 08/15/17 18:49 Ur Specific [place] 1.025 (1.005-1.030) 08/15/17 18:49 Urine Protein 100 mg/dL (NEGATIVE) H 08/15/17 18:49 Urine Glucose (UA) NEGATIVE mg/dL (NEGATIVE) 08/15/17 18:49 Urine Ketones NEGATIVE mg/dL (NEGATIVE) 08/15/17 18:49 Urine Blood LARGE (NEGATIVE) H 08/15/17 18:49 Urine Nitrate NEGATIVE (NEGATIVE) 08/15/17 18:49 Urine Bilirubin SMALL (NEGATIVE) H 08/15/17 18:49 Urine Urobilinogen 1.0 E.U./dL (0.2 - 1.0) 08/15/17 18:49 Ur Leukocyte Esterase LARGE (NEGATIVE) H 08/15/17 18:49 Urine RBC >100 /hpf (0-5) H 08/15/17 18:49 Urine WBC 50-100 /hpf (0-5) H 08/15/17 18:49 Ur Epithelial Cells FEW /lpf (FEW) 08/15/17 18:49 Urine Bacteria MODERATE /hpf (NONE SEEN) 08/15/17 18:49 Urine Opiates Screen POSITIVE (NEGATIVE) H 08/15/17 18:49 Urine Methadone Screen NEGATIVE (NEGATIVE) 08/15/17 18:49 Ur Barbiturates Screen NEGATIVE (NEGATIVE) 08/15/17 18:49 Ur Tricyclics Screen NEGATIVE (NEGATIVE) 08/15/17 18:49 Ur Phencyclidine Scrn NEGATIVE (NEGATIVE) 08/15/17 18:49 Amphetamines Screen NEGATIVE (NEGATIVE) 08/15/17 18:49 U Methamphetamines Scrn NEGATIVE (NEGATIVE) 08/15/17 18:49 U Benzodiazepines Scrn POSITIVE (NEGATIVE) H 08/15/17 18:49 U Cocaine Metab Screen NEGATIVE (NEGATIVE) 08/15/17 18:49 U Cannabinoids Screen NEGATIVE (NEGATIVE) 08/15/17 18:49 Hep Bs Antigen Negative (Negative) 08/17/17 09:20 Hep Bs Antibody, Quant 5.3 mIU/mL (Immunity>9.9) L 08/17/17 09:20 Hep B Core IgM Ab Negative (Negative) 08/17/17 09:20 HCV RNA Quant (bDNA) SEE REF. LAB REPORT 08/17/17 09:20 - Physical Exam Vitals and I&O: Vital Signs Temp 97.6 F 08/18/17 20:00 Pulse 64 08/19/17 10:00 Resp 20 08/19/17 08:00 BP 139/80 08/19/17 10:00 Pulse Ox 98 08/18/17 20:00 Intake & Output 08/18/17 08/19/17 08/19/17 18:59 06:59 18:59 Intake Total 120 Balance 120 Intake: Oral 120 Other: # Voids 3 Active Medications: Current Medications Acetaminophen (Tylenol) 650 mg PO Q4HR PRN PRN Reason: Mild Pain / Temp above 100 Stop: 10/14/17 23:10 Acetaminophen/Hydrocodone Bitart ([place] 5mg/325mg) 1 tab PO Q4H PRN PRN Reason: Pain (Moderate) Stop: 10/14/17 23:06 Last Admin: 08/16/17 01:53 Dose: 1 tab Amlodipine Besylate (Norvasc) 10 mg PO DAILY [facility] Stop: 10/15/17 08:59 Last Admin: 08/19/17 10:00 Dose: 10 mg Bisacodyl (Dulcolax 10 Mg Supp) 10 mg RC DAILY PRN PRN Reason: Constipation Stop: 10/14/17 22:42 Buspirone HCl (Buspar) 10 mg PO TID KRISTY PRN Reason: Protocol Stop: 10/15/17 08:59 Last Admin: 08/19/17 14:20 Dose: 10 mg Ciprofloxacin (Cipro) 250 mg PO BID KRISTY Stop: 10/15/17 10:14 Last Admin: 08/19/17 09:56 Dose: 250 mg Clonazepam (Klonopin) 0.5 mg PO BID PRN; Protocol PRN Reason: Anxiety Stop: 10/15/17 08:59 Last Admin: 08/17/17 10:47 Dose: 0.5 mg Divalproex Sodium (Depakote Dr) 250 mg PO BID KRISTY PRN Reason: Protocol Stop: 10/18/17 16:59 Hydrochlorothiazide (Hctz) 25 mg PO DAILY KRISTY Stop: 10/15/17 08:59 Last Admin: 08/19/17 09:57 Dose: 25 mg Lactobacillus Rhamnosus (Culturelle) 1 each PO DAILY KRISTY Stop: 10/17/17 08:59 Last Admin: 08/19/17 10:00 Dose: 1 each Levothyroxine Sodium (Synthroid) 0.075 mg PO QDAC KRISTY Stop: 10/15/17 07:29 Last Admin: 08/19/17 06:36 Dose: 0.075 mg Lorazepam (Ativan) 0.5 mg PO Q4HR PRN; Protocol PRN Reason: Agitation Stop: 10/16/17 10:52 Last Admin: 08/17/17 11:19 Dose: 0.5 mg Magnesium Hydroxide (Milk Of Magnesia) 30 ml PO HS PRN PRN Reason: Constipation Miscellaneous (Probiotic Screen) 1 ea MC PRN PRN PRN Reason: PROTOCOL Stop: 10/16/17 17:14 Risperidone (Risperdal) 2 mg PO BID KRISTY PRN Reason: Protocol Stop: 10/15/17 16:59 Last Admin: 08/19/17 09:54 Dose: 2 mg Vitamin B Complex/Vit C/Folic Acid (Vitamin B Complex W/Vitamin C) 1 tab PO DAILY KRISTY Stop: 10/15/17 08:59 Last Admin: 08/19/17 09:56 Dose: 1 tab Zolpidem Tartrate (Ambien) 5 mg PO HS PRN PRN Reason: Insomnia Stop: 10/14/17 20:32 Last Admin: 08/16/17 21:18 Dose: 5 mg - Procedures Procedures: Procedures Procedure Code Date INDIVID PSYCHOTHERAP NEC 94.39 09/27/08 OTHER GROUP THERAPY 94.44 10/14/08 RECREATIONAL THERAPY 93.81 10/14/08 Assessment/Plan - Problem List Patient Problems: All Active Problems AGITATION AND UNCOOPERATIVE WITH CARE (Acute) - Assessment Assessment: * Multiple spiculated lung nodules, likely malignant * Liver cyst. CT contrast showed no evidence of mass * Psychosis Will need biopsy from nodules in tertiary care center
--- NOTE | 2017-08-19 22:34 | Progress Notes ---
DATE: 08/19/2017 SUBJECTIVE: Staff was spoken to. The patient is interviewed. Mood is noted to be irritable. Affect is constricted. Continues to be irritable and angry. Affect is very labile. The patient is going on a tangent. The patient's coping skills are noted to be very poor. The patient has not been able to contract for safety at this time. The patient's bupropion is going to be discontinued and the patient is going to be started on the Depakote for possible mood swings. ASSESSMENT: The patient is still grossly psychotic and impulsive. PLAN: To continue the patient with supportive therapy, encouraged the patient to verbalize the concerns rather than to act out. Please note that the patient is not ready to be discharged to a lower level of care in view of his acute mood swings and paranoid delusions. JOB# [id number]
[2017-08-20] MEDS: Levothyroxine 0.075 Mg Tab PO SCH ×2 (06:33)
[2017-08-20] MEDS: Lactobacillus Rhamnosus 10 Billion CFU Capsule PO SCH ×2 (08:25)
[2017-08-20] MEDS: Vitamin B Complex w/Vitamin C Tab PO SCH ×2 (08:26)
[2017-08-20] MEDS: Multivitamin w/ Minerals Tab PO SCH ×2 (10:04)
--- NOTE | 2017-08-20 16:39 | General Progress Note ---
Subjective - Review of Systems Service Date: 08/20/17 Subjective: irritable Objective - Results Result Diagrams: 08/16/17 09:10 08/17/17 09:20 Recent Labs: Laboratory Last Values WBC 6.5 Th/cmm (4.8-10.8) 08/16/17 09:10 RBC 4.17 Mil/cmm (4.30-5.70) L 08/16/17 09:10 Hgb 13.1 gm/dL (12-16) 08/16/17 09:10 Hct 39.7 % (41.0-60) L 08/16/17 09:10 MCV 95.0 fl (80-99) 08/16/17 09:10 MCH 31.4 pg (26.0-30.0) H 08/16/17 09:10 MCHC Differential 33.1 pg (28.0-36.0) 08/16/17 09:10 RDW 13.9 % (11.5-20.0) 08/16/17 09:10 Plt Count 216 Th/cmm (150-400) 08/16/17 09:10 MPV 7.7 fl 08/16/17 09:10 Neutrophils % 56.5 % (40.0-80.0) 08/16/17 09:10 Lymphocytes % 31.1 % (20.0-50.0) 08/16/17 09:10 Monocytes % 6.9 % (2.0-10.0) 08/16/17 09:10 Eosinophils % 4.1 % (0.0-5.0) 08/16/17 09:10 Basophils % 1.4 % (0.0-2.0) 08/16/17 09:10 PT 11.2 SECONDS (9.5-11.5) 08/18/17 13:14 INR 1.08 (0.5-1.4) 08/18/17 13:14 PTT (Actin FS) 32.3 SECONDS (26.0-38.0) 08/18/17 13:14 Sodium 139 mEq/L (136-145) 08/17/17 09:20 Potassium 3.4 mEq/L (3.5-5.1) L 08/17/17 09:20 Chloride 107 mEq/L (98-107) 08/17/17 09:20 Carbon Dioxide 27.6 mEq/L (21.0-31.0) 08/17/17 09:20 Anion Gap 7.8 (7.0-16.0) 08/17/17 09:20 BUN 21 mg/dL (7-25) 08/17/17 09:20 Creatinine 1.0 mg/dL (0.7-1.3) 08/17/17 09:20 Est GFR ( Amer) > 60.0 ml/min (>90) 08/17/17 09:20 Est GFR (Non-Af Amer) > 60.0 ml/min 08/17/17 09:20 BUN/Creatinine Ratio 21.0 08/17/17 09:20 Glucose 91 mg/dL (70-105) 08/17/17 09:20 POC Glucose 132 MG/DL (70 - 105) H 08/19/17 06:19 Hemoglobin A1c % 5.0 % (4.0-6.0) 08/15/17 18:42 Calcium 9.6 mg/dL (8.6-10.3) 08/17/17 09:20 Magnesium 2.0 mg/dL (1.9-2.7) 08/17/17 09:20 Total Bilirubin 1.1 mg/dL (0.3-1.0) H 08/16/17 09:10 AST 52 U/L (13-39) H 08/16/17 09:10 ALT 62 U/L (7-52) H 08/16/17 09:10 Alkaline Phosphatase 65 U/L (34-104) 08/16/17 09:10 Troponin I < 0.01 ng/mL (0.01-0.05) L 08/15/17 18:42 B-Natriuretic Peptide 21.3 pg/mL (5.0-100.0) 08/15/17 18:42 Total Protein 8.2 gm/dL (6.0-8.3) 08/16/17 09:10 Albumin 4.3 gm/dL (4.2-5.5) 08/16/17 09:10 Globulin 3.9 gm/dL 08/16/17 09:10 Albumin/Globulin Ratio 1.1 (1.0-1.8) 08/16/17 09:10 Tumor Marker AFP 2.2 ng/mL (0.0-8.3) 08/17/17 09:20 Carcinoembryonic Ag 2.9 ng/mL (0.0-4.7) 08/17/17 09:20 Urine Source RANDOM 08/15/17 18:49 Urine Color BROWN 08/15/17 18:49 Urine Clarity HAZY (CLEAR) 08/15/17 18:49 Urine pH 6.5 (4.6 - 8.0) 08/15/17 18:49 Ur Specific [place] 1.025 (1.005-1.030) 08/15/17 18:49 Urine Protein 100 mg/dL (NEGATIVE) H 08/15/17 18:49 Urine Glucose (UA) NEGATIVE mg/dL (NEGATIVE) 08/15/17 18:49 Urine Ketones NEGATIVE mg/dL (NEGATIVE) 08/15/17 18:49 Urine Blood LARGE (NEGATIVE) H 08/15/17 18:49 Urine Nitrate NEGATIVE (NEGATIVE) 08/15/17 18:49 Urine Bilirubin SMALL (NEGATIVE) H 08/15/17 18:49 Urine Urobilinogen 1.0 E.U./dL (0.2 - 1.0) 08/15/17 18:49 Ur Leukocyte Esterase LARGE (NEGATIVE) H 08/15/17 18:49 Urine RBC >100 /hpf (0-5) H 08/15/17 18:49 Urine WBC 50-100 /hpf (0-5) H 08/15/17 18:49 Ur Epithelial Cells FEW /lpf (FEW) 08/15/17 18:49 Urine Bacteria MODERATE /hpf (NONE SEEN) 08/15/17 18:49 Urine Opiates Screen POSITIVE (NEGATIVE) H 08/15/17 18:49 Urine Methadone Screen NEGATIVE (NEGATIVE) 08/15/17 18:49 Ur Barbiturates Screen NEGATIVE (NEGATIVE) 08/15/17 18:49 Ur Tricyclics Screen NEGATIVE (NEGATIVE) 08/15/17 18:49 Ur Phencyclidine Scrn NEGATIVE (NEGATIVE) 08/15/17 18:49 Amphetamines Screen NEGATIVE (NEGATIVE) 08/15/17 18:49 U Methamphetamines Scrn NEGATIVE (NEGATIVE) 08/15/17 18:49 U Benzodiazepines Scrn POSITIVE (NEGATIVE) H 08/15/17 18:49 U Cocaine Metab Screen NEGATIVE (NEGATIVE) 08/15/17 18:49 U Cannabinoids Screen NEGATIVE (NEGATIVE) 08/15/17 18:49 Hep Bs Antigen Negative (Negative) 08/17/17 09:20 Hep Bs Antibody, Quant 5.3 mIU/mL (Immunity>9.9) L 08/17/17 09:20 Hep B Core IgM Ab Negative (Negative) 08/17/17 09:20 HCV RNA Quant (bDNA) SEE REF. LAB REPORT 08/17/17 09:20 - Physical Exam Vitals and I&O: Vital Signs Temp 98 F 08/20/17 14:00 Pulse 58 08/20/17 14:00 Resp 20 08/20/17 14:00 BP 137/80 08/20/17 14:00 Pulse Ox 97 08/20/17 14:00 Intake & Output 08/19/17 08/20/17 08/20/17 18:59 06:59 18:59 Intake Total 1320 Balance 1320 Weight (lbs) 68.492 kg Intake: Oral 1320 Other: # Voids 3 3 # Bowel Movements 1 0 Active Medications: Current Medications Acetaminophen (Tylenol) 650 mg PO Q4HR PRN PRN Reason: Mild Pain / Temp above 100 Stop: 10/14/17 23:10 Acetaminophen/Hydrocodone Bitart ([place] 5mg/325mg) 1 tab PO Q4H PRN PRN Reason: Pain (Moderate) Stop: 10/14/17 23:06 Last Admin: 08/16/17 01:53 Dose: 1 tab Amlodipine Besylate (Norvasc) 10 mg PO DAILY [facility] Stop: 10/15/17 08:59 Last Admin: 08/20/17 10:01 Dose: 10 mg Bisacodyl (Dulcolax 10 Mg Supp) 10 mg RC DAILY PRN PRN Reason: Constipation Stop: 10/14/17 22:42 Buspirone HCl (Buspar) 10 mg PO TID KRISTY PRN Reason: Protocol Stop: 10/15/17 08:59 Last Admin: 08/20/17 13:18 Dose: 10 mg Ciprofloxacin (Cipro) 250 mg PO BID [facility] Stop: 10/15/17 10:14 Last Admin: 08/20/17 16:25 Dose: 250 mg Clonazepam (Klonopin) 0.5 mg PO BID PRN; Protocol PRN Reason: Anxiety Stop: 10/15/17 08:59 Last Admin: 08/20/17 16:26 Dose: 0.5 mg Divalproex Sodium (Depakote Dr) 250 mg PO BID KRISTY PRN Reason: Protocol Stop: 10/18/17 16:59 Last Admin: 08/20/17 16:25 Dose: 250 mg Hydrochlorothiazide (Hctz) 25 mg PO DAILY KRISTY Stop: 10/15/17 08:59 Last Admin: 08/20/17 10:03 Dose: 25 mg Lactobacillus Rhamnosus (Culturelle) 1 each PO DAILY KRISTY Stop: 10/17/17 08:59 Last Admin: 08/20/17 08:25 Dose: 1 each Levothyroxine Sodium (Synthroid) 0.075 mg PO QDAC KRISTY Stop: 10/15/17 07:29 Last Admin: 08/20/17 06:33 Dose: 0.075 mg Lorazepam (Ativan) 0.5 mg PO Q4HR PRN; Protocol PRN Reason: Agitation Stop: 10/16/17 10:52 Last Admin: 08/20/17 02:45 Dose: 0.5 mg Magnesium Hydroxide (Milk Of Magnesia) 30 ml PO HS PRN PRN Reason: Constipation Miscellaneous (Probiotic Screen) 1 ea MC PRN PRN PRN Reason: PROTOCOL Stop: 10/16/17 17:14 Risperidone (Risperdal) 2 mg PO BID KRISTY PRN Reason: Protocol Stop: 10/15/17 16:59 Last Admin: 08/20/17 16:25 Dose: 2 mg Vitamin B Complex/Vit C/Folic Acid (Vitamin B Complex W/Vitamin C) 1 tab PO DAILY KRISTY Stop: 10/15/17 08:59 Last Admin: 08/20/17 08:26 Dose: 1 tab Zolpidem Tartrate (Ambien) 5 mg PO HS PRN PRN Reason: Insomnia Stop: 10/14/17 20:32 Last Admin: 08/16/17 21:18 Dose: 5 mg - Procedures Procedures: Procedures Procedure Code Date INDIVID PSYCHOTHERAP NEC 94.39 09/27/08 OTHER GROUP THERAPY 94.44 10/14/08 RECREATIONAL THERAPY 93.81 10/14/08 Assessment/Plan - Problem List Patient Problems: All Active Problems AGITATION AND UNCOOPERATIVE WITH CARE (Acute) - Assessment Assessment: * Multiple spiculated lung nodules, likely malignant * Liver cyst. CT contrast showed no evidence of mass * Psychosis Will need biopsy from nodules in tertiary care center
--- NOTE | 2017-08-20 21:55 | Progress Notes ---
DATE: 08/20/2017 Staff was spoken to. The patient is interviewed. Mood is noted to be irritable. Affect is constricted. Insight and judgment at this time are noted to be still impaired. The patient has paranoid delusions. The patient is pacing most of the time on the unit. The patient is currently on 2 mg twice a day and the Risperdal and has been able to tolerate the medication. The aggressive behavior seems to be coming under control after the Depakote has been placed. ASSESSMENT: The patient is still psychotic and impulsive. PLAN: To continue the patient with supportive therapy and followup. JOB# [id number]
[2017-08-21] MEDS: Levothyroxine 0.075 Mg Tab PO SCH ×2 (06:47)
[2017-08-21] MEDS: Vitamin B Complex w/Vitamin C Tab PO SCH ×2 (08:39)
[2017-08-21] MEDS: Multivitamin w/ Minerals Tab PO SCH ×2 (08:40)
[2017-08-21] MEDS: Lactobacillus Rhamnosus 10 Billion CFU Capsule PO SCH ×2 (08:43)
--- NOTE | 2017-08-22 03:25 | Progress Notes ---
DATE: 08/21/2017 SUBJECTIVE: Staff was spoken to. The patient is interviewed. Mood is irritable. Affect is constricted. Insight and judgment at this time are noted to be still impaired. Mood swings are still a problem. No side effects to the medications are noted. The patient has been having difficult time to cope with the stress. The patient at this time is on Risperdal and Depakote. Depakote is going to be gradually increased to 3 times a day and the patient is going to be followed up with supportive therapy. ASSESSMENT: The patient is still having mood swings and psychosis. PLAN: To continue the patient with the supportive therapy. I encouraged the patient to verbalize the concerns rather than to act out. JOB# [id number]
[2017-08-22] MEDS: Levothyroxine 0.075 Mg Tab PO SCH ×2 (06:44)
[2017-08-22] MEDS: Lactobacillus Rhamnosus 10 Billion CFU Capsule PO SCH ×2 (08:29)
[2017-08-22] MEDS: Multivitamin w/ Minerals Tab PO SCH ×2 (08:29)
[2017-08-22] MEDS: Vitamin B Complex w/Vitamin C Tab PO SCH ×2 (08:31)
--- NOTE | 2017-08-22 10:21 | General Progress Note ---
Subjective - Review of Systems Service Date: 08/22/17 Subjective: irritable Objective - Results Result Diagrams: 08/16/17 09:10 08/17/17 09:20 Recent Labs: Laboratory Last Values WBC 6.5 Th/cmm (4.8-10.8) 08/16/17 09:10 RBC 4.17 Mil/cmm (4.30-5.70) L 08/16/17 09:10 Hgb 13.1 gm/dL (12-16) 08/16/17 09:10 Hct 39.7 % (41.0-60) L 08/16/17 09:10 MCV 95.0 fl (80-99) 08/16/17 09:10 MCH 31.4 pg (26.0-30.0) H 08/16/17 09:10 MCHC Differential 33.1 pg (28.0-36.0) 08/16/17 09:10 RDW 13.9 % (11.5-20.0) 08/16/17 09:10 Plt Count 216 Th/cmm (150-400) 08/16/17 09:10 MPV 7.7 fl 08/16/17 09:10 Neutrophils % 56.5 % (40.0-80.0) 08/16/17 09:10 Lymphocytes % 31.1 % (20.0-50.0) 08/16/17 09:10 Monocytes % 6.9 % (2.0-10.0) 08/16/17 09:10 Eosinophils % 4.1 % (0.0-5.0) 08/16/17 09:10 Basophils % 1.4 % (0.0-2.0) 08/16/17 09:10 PT 11.2 SECONDS (9.5-11.5) 08/18/17 13:14 INR 1.08 (0.5-1.4) 08/18/17 13:14 PTT (Actin FS) 32.3 SECONDS (26.0-38.0) 08/18/17 13:14 Sodium 139 mEq/L (136-145) 08/17/17 09:20 Potassium 3.4 mEq/L (3.5-5.1) L 08/17/17 09:20 Chloride 107 mEq/L (98-107) 08/17/17 09:20 Carbon Dioxide 27.6 mEq/L (21.0-31.0) 08/17/17 09:20 Anion Gap 7.8 (7.0-16.0) 08/17/17 09:20 BUN 21 mg/dL (7-25) 08/17/17 09:20 Creatinine 1.0 mg/dL (0.7-1.3) 08/17/17 09:20 Est GFR ( Amer) > 60.0 ml/min (>90) 08/17/17 09:20 Est GFR (Non-Af Amer) > 60.0 ml/min 08/17/17 09:20 BUN/Creatinine Ratio 21.0 08/17/17 09:20 Glucose 91 mg/dL (70-105) 08/17/17 09:20 POC Glucose 132 MG/DL (70 - 105) H 08/19/17 06:19 Hemoglobin A1c % 5.0 % (4.0-6.0) 08/15/17 18:42 Calcium 9.6 mg/dL (8.6-10.3) 08/17/17 09:20 Magnesium 2.0 mg/dL (1.9-2.7) 08/17/17 09:20 Total Bilirubin 1.1 mg/dL (0.3-1.0) H 08/16/17 09:10 AST 52 U/L (13-39) H 08/16/17 09:10 ALT 62 U/L (7-52) H 08/16/17 09:10 Alkaline Phosphatase 65 U/L (34-104) 08/16/17 09:10 Troponin I < 0.01 ng/mL (0.01-0.05) L 08/15/17 18:42 B-Natriuretic Peptide 21.3 pg/mL (5.0-100.0) 08/15/17 18:42 Total Protein 8.2 gm/dL (6.0-8.3) 08/16/17 09:10 Albumin 4.3 gm/dL (4.2-5.5) 08/16/17 09:10 Globulin 3.9 gm/dL 08/16/17 09:10 Albumin/Globulin Ratio 1.1 (1.0-1.8) 08/16/17 09:10 Tumor Marker AFP 2.2 ng/mL (0.0-8.3) 08/17/17 09:20 Carcinoembryonic Ag 2.9 ng/mL (0.0-4.7) 08/17/17 09:20 Urine Source RANDOM 08/15/17 18:49 Urine Color BROWN 08/15/17 18:49 Urine Clarity HAZY (CLEAR) 08/15/17 18:49 Urine pH 6.5 (4.6 - 8.0) 08/15/17 18:49 Ur Specific [place] 1.025 (1.005-1.030) 08/15/17 18:49 Urine Protein 100 mg/dL (NEGATIVE) H 08/15/17 18:49 Urine Glucose (UA) NEGATIVE mg/dL (NEGATIVE) 08/15/17 18:49 Urine Ketones NEGATIVE mg/dL (NEGATIVE) 08/15/17 18:49 Urine Blood LARGE (NEGATIVE) H 08/15/17 18:49 Urine Nitrate NEGATIVE (NEGATIVE) 08/15/17 18:49 Urine Bilirubin SMALL (NEGATIVE) H 08/15/17 18:49 Urine Urobilinogen 1.0 E.U./dL (0.2 - 1.0) 08/15/17 18:49 Ur Leukocyte Esterase LARGE (NEGATIVE) H 08/15/17 18:49 Urine RBC >100 /hpf (0-5) H 08/15/17 18:49 Urine WBC 50-100 /hpf (0-5) H 08/15/17 18:49 Ur Epithelial Cells FEW /lpf (FEW) 08/15/17 18:49 Urine Bacteria MODERATE /hpf (NONE SEEN) 08/15/17 18:49 Urine Opiates Screen POSITIVE (NEGATIVE) H 08/15/17 18:49 Urine Methadone Screen NEGATIVE (NEGATIVE) 08/15/17 18:49 Ur Barbiturates Screen NEGATIVE (NEGATIVE) 08/15/17 18:49 Ur Tricyclics Screen NEGATIVE (NEGATIVE) 08/15/17 18:49 Ur Phencyclidine Scrn NEGATIVE (NEGATIVE) 08/15/17 18:49 Amphetamines Screen NEGATIVE (NEGATIVE) 08/15/17 18:49 U Methamphetamines Scrn NEGATIVE (NEGATIVE) 08/15/17 18:49 U Benzodiazepines Scrn POSITIVE (NEGATIVE) H 08/15/17 18:49 U Cocaine Metab Screen NEGATIVE (NEGATIVE) 08/15/17 18:49 U Cannabinoids Screen NEGATIVE (NEGATIVE) 08/15/17 18:49 Hep Bs Antigen Negative (Negative) 08/17/17 09:20 Hep Bs Antibody, Quant 5.3 mIU/mL (Immunity>9.9) L 08/17/17 09:20 Hep B Core IgM Ab Negative (Negative) 08/17/17 09:20 HCV RNA Quant (bDNA) SEE REF. LAB REPORT 08/17/17 09:20 - Physical Exam Vitals and I&O: Vital Signs Temp 98.2 F 08/22/17 06:28 Pulse 61 08/22/17 08:31 Resp 20 08/22/17 06:28 BP 143/85 08/22/17 08:31 Pulse Ox 97 08/22/17 06:28 Intake & Output 08/21/17 08/22/17 08/22/17 18:59 06:59 18:59 Intake Total 300 Balance 300 Intake: Oral 300 Other: # Voids 1 # Bowel Movements 0 Active Medications: Current Medications Acetaminophen (Tylenol) 650 mg PO Q4HR PRN PRN Reason: Mild Pain / Temp above 100 Stop: 10/14/17 23:10 Acetaminophen/Hydrocodone Bitart ([place] 5mg/325mg) 1 tab PO Q4H PRN PRN Reason: Pain (Moderate) Stop: 10/14/17 23:06 Last Admin: 08/16/17 01:53 Dose: 1 tab Amlodipine Besylate (Norvasc) 10 mg PO DAILY [facility] Stop: 10/15/17 08:59 Last Admin: 08/22/17 08:31 Dose: 10 mg Benazepril HCl (Lotensin) 10 mg PO DAILY [facility] Stop: 10/20/17 16:29 Last Admin: 08/22/17 08:30 Dose: 10 mg Bisacodyl (Dulcolax 10 Mg Supp) 10 mg RC DAILY PRN PRN Reason: Constipation Stop: 10/14/17 22:42 Buspirone HCl (Buspar) 10 mg PO TID [facility] PRN Reason: Protocol Stop: 10/15/17 08:59 Last Admin: 08/22/17 08:31 Dose: 10 mg Ciprofloxacin (Cipro) 250 mg PO BID [facility] Stop: 10/15/17 10:14 Last Admin: 08/22/17 08:30 Dose: 250 mg Clonazepam (Klonopin) 0.5 mg PO BID PRN; Protocol PRN Reason: Anxiety Stop: 10/15/17 08:59 Last Admin: 08/21/17 16:42 Dose: 0.5 mg Divalproex Sodium (Depakote Dr) 250 mg PO TID [facility] PRN Reason: Protocol Stop: 10/20/17 13:59 Last Admin: 08/22/17 08:30 Dose: 250 mg Hydrochlorothiazide (Hctz) 25 mg PO DAILY [facility] Stop: 10/15/17 08:59 Last Admin: 08/22/17 08:31 Dose: 25 mg Lactobacillus Rhamnosus (Culturelle) 1 each PO DAILY [facility] Stop: 10/17/17 08:59 Last Admin: 08/22/17 08:29 Dose: 1 each Levothyroxine Sodium (Synthroid) 0.075 mg PO QDAC [facility] Stop: 10/15/17 07:29 Last Admin: 08/22/17 06:44 Dose: 0.075 mg Lorazepam (Ativan) 0.5 mg PO Q4HR PRN; Protocol PRN Reason: Agitation Stop: 10/16/17 10:52 Last Admin: 08/20/17 02:45 Dose: 0.5 mg Magnesium Hydroxide (Milk Of Magnesia) 30 ml PO HS PRN PRN Reason: Constipation Miscellaneous (Probiotic Screen) 1 ea [facility] PRN PRN PRN Reason: PROTOCOL Stop: 10/16/17 17:14 Risperidone (Risperdal) 2 mg PO BID [facility] PRN Reason: Protocol Stop: 10/15/17 16:59 Last Admin: 08/22/17 08:29 Dose: 2 mg Vitamin B Complex/Vit C/Folic Acid (Vitamin B Complex W/Vitamin C) 1 tab PO DAILY [facility] Stop: 10/15/17 08:59 Last Admin: 08/22/17 08:31 Dose: 1 tab Zolpidem Tartrate (Ambien) 5 mg PO HS PRN PRN Reason: Insomnia Stop: 10/14/17 20:32 Last Admin: 08/16/17 21:18 Dose: 5 mg - Procedures Procedures: Procedures Procedure Code Date INDIVID PSYCHOTHERAP NEC 94.39 09/27/08 OTHER GROUP THERAPY 94.44 10/14/08 RECREATIONAL THERAPY 93.81 10/14/08 Assessment/Plan - Problem List Patient Problems: All Active Problems AGITATION AND UNCOOPERATIVE WITH CARE (Acute) - Assessment Assessment: * Multiple spiculated lung nodules, likely malignant * Liver cyst. CT contrast showed no evidence of mass * Psychosis Will need biopsy from nodules in tertiary care center
--- NOTE | 2017-08-22 10:21 | General Progress Note ---
Subjective - Review of Systems Service Date: 08/22/17 Subjective: irritable Objective - Results Result Diagrams: 08/16/17 09:10 08/17/17 09:20 Recent Labs: Laboratory Last Values WBC 6.5 Th/cmm (4.8-10.8) 08/16/17 09:10 RBC 4.17 Mil/cmm (4.30-5.70) L 08/16/17 09:10 Hgb 13.1 gm/dL (12-16) 08/16/17 09:10 Hct 39.7 % (41.0-60) L 08/16/17 09:10 MCV 95.0 fl (80-99) 08/16/17 09:10 MCH 31.4 pg (26.0-30.0) H 08/16/17 09:10 MCHC Differential 33.1 pg (28.0-36.0) 08/16/17 09:10 RDW 13.9 % (11.5-20.0) 08/16/17 09:10 Plt Count 216 Th/cmm (150-400) 08/16/17 09:10 MPV 7.7 fl 08/16/17 09:10 Neutrophils % 56.5 % (40.0-80.0) 08/16/17 09:10 Lymphocytes % 31.1 % (20.0-50.0) 08/16/17 09:10 Monocytes % 6.9 % (2.0-10.0) 08/16/17 09:10 Eosinophils % 4.1 % (0.0-5.0) 08/16/17 09:10 Basophils % 1.4 % (0.0-2.0) 08/16/17 09:10 PT 11.2 SECONDS (9.5-11.5) 08/18/17 13:14 INR 1.08 (0.5-1.4) 08/18/17 13:14 PTT (Actin FS) 32.3 SECONDS (26.0-38.0) 08/18/17 13:14 Sodium 139 mEq/L (136-145) 08/17/17 09:20 Potassium 3.4 mEq/L (3.5-5.1) L 08/17/17 09:20 Chloride 107 mEq/L (98-107) 08/17/17 09:20 Carbon Dioxide 27.6 mEq/L (21.0-31.0) 08/17/17 09:20 Anion Gap 7.8 (7.0-16.0) 08/17/17 09:20 BUN 21 mg/dL (7-25) 08/17/17 09:20 Creatinine 1.0 mg/dL (0.7-1.3) 08/17/17 09:20 Est GFR ( Amer) > 60.0 ml/min (>90) 08/17/17 09:20 Est GFR (Non-Af Amer) > 60.0 ml/min 08/17/17 09:20 BUN/Creatinine Ratio 21.0 08/17/17 09:20 Glucose 91 mg/dL (70-105) 08/17/17 09:20 POC Glucose 132 MG/DL (70 - 105) H 08/19/17 06:19 Hemoglobin A1c % 5.0 % (4.0-6.0) 08/15/17 18:42 Calcium 9.6 mg/dL (8.6-10.3) 08/17/17 09:20 Magnesium 2.0 mg/dL (1.9-2.7) 08/17/17 09:20 Total Bilirubin 1.1 mg/dL (0.3-1.0) H 08/16/17 09:10 AST 52 U/L (13-39) H 08/16/17 09:10 ALT 62 U/L (7-52) H 08/16/17 09:10 Alkaline Phosphatase 65 U/L (34-104) 08/16/17 09:10 Troponin I < 0.01 ng/mL (0.01-0.05) L 08/15/17 18:42 B-Natriuretic Peptide 21.3 pg/mL (5.0-100.0) 08/15/17 18:42 Total Protein 8.2 gm/dL (6.0-8.3) 08/16/17 09:10 Albumin 4.3 gm/dL (4.2-5.5) 08/16/17 09:10 Globulin 3.9 gm/dL 08/16/17 09:10 Albumin/Globulin Ratio 1.1 (1.0-1.8) 08/16/17 09:10 Tumor Marker AFP 2.2 ng/mL (0.0-8.3) 08/17/17 09:20 Carcinoembryonic Ag 2.9 ng/mL (0.0-4.7) 08/17/17 09:20 Urine Source RANDOM 08/15/17 18:49 Urine Color BROWN 08/15/17 18:49 Urine Clarity HAZY (CLEAR) 08/15/17 18:49 Urine pH 6.5 (4.6 - 8.0) 08/15/17 18:49 Ur Specific [place] 1.025 (1.005-1.030) 08/15/17 18:49 Urine Protein 100 mg/dL (NEGATIVE) H 08/15/17 18:49 Urine Glucose (UA) NEGATIVE mg/dL (NEGATIVE) 08/15/17 18:49 Urine Ketones NEGATIVE mg/dL (NEGATIVE) 08/15/17 18:49 Urine Blood LARGE (NEGATIVE) H 08/15/17 18:49 Urine Nitrate NEGATIVE (NEGATIVE) 08/15/17 18:49 Urine Bilirubin SMALL (NEGATIVE) H 08/15/17 18:49 Urine Urobilinogen 1.0 E.U./dL (0.2 - 1.0) 08/15/17 18:49 Ur Leukocyte Esterase LARGE (NEGATIVE) H 08/15/17 18:49 Urine RBC >100 /hpf (0-5) H 08/15/17 18:49 Urine WBC 50-100 /hpf (0-5) H 08/15/17 18:49 Ur Epithelial Cells FEW /lpf (FEW) 08/15/17 18:49 Urine Bacteria MODERATE /hpf (NONE SEEN) 08/15/17 18:49 Urine Opiates Screen POSITIVE (NEGATIVE) H 08/15/17 18:49 Urine Methadone Screen NEGATIVE (NEGATIVE) 08/15/17 18:49 Ur Barbiturates Screen NEGATIVE (NEGATIVE) 08/15/17 18:49 Ur Tricyclics Screen NEGATIVE (NEGATIVE) 08/15/17 18:49 Ur Phencyclidine Scrn NEGATIVE (NEGATIVE) 08/15/17 18:49 Amphetamines Screen NEGATIVE (NEGATIVE) 08/15/17 18:49 U Methamphetamines Scrn NEGATIVE (NEGATIVE) 08/15/17 18:49 U Benzodiazepines Scrn POSITIVE (NEGATIVE) H 08/15/17 18:49 U Cocaine Metab Screen NEGATIVE (NEGATIVE) 08/15/17 18:49 U Cannabinoids Screen NEGATIVE (NEGATIVE) 08/15/17 18:49 Hep Bs Antigen Negative (Negative) 08/17/17 09:20 Hep Bs Antibody, Quant 5.3 mIU/mL (Immunity>9.9) L 08/17/17 09:20 Hep B Core IgM Ab Negative (Negative) 08/17/17 09:20 HCV RNA Quant (bDNA) SEE REF. LAB REPORT 08/17/17 09:20 - Physical Exam Vitals and I&O: Vital Signs Temp 98.2 F 08/22/17 06:28 Pulse 61 08/22/17 08:31 Resp 20 08/22/17 06:28 BP 143/85 08/22/17 08:31 Pulse Ox 97 08/22/17 06:28 Intake & Output 08/21/17 08/22/17 08/22/17 18:59 06:59 18:59 Intake Total 300 Balance 300 Intake: Oral 300 Other: # Voids 1 # Bowel Movements 0 Active Medications: Current Medications Acetaminophen (Tylenol) 650 mg PO Q4HR PRN PRN Reason: Mild Pain / Temp above 100 Stop: 10/14/17 23:10 Acetaminophen/Hydrocodone Bitart ([place] 5mg/325mg) 1 tab PO Q4H PRN PRN Reason: Pain (Moderate) Stop: 10/14/17 23:06 Last Admin: 08/16/17 01:53 Dose: 1 tab Amlodipine Besylate (Norvasc) 10 mg PO DAILY [facility] Stop: 10/15/17 08:59 Last Admin: 08/22/17 08:31 Dose: 10 mg Benazepril HCl (Lotensin) 10 mg PO DAILY [facility] Stop: 10/20/17 16:29 Last Admin: 08/22/17 08:30 Dose: 10 mg Bisacodyl (Dulcolax 10 Mg Supp) 10 mg RC DAILY PRN PRN Reason: Constipation Stop: 10/14/17 22:42 Buspirone HCl (Buspar) 10 mg PO TID [facility] PRN Reason: Protocol Stop: 10/15/17 08:59 Last Admin: 08/22/17 08:31 Dose: 10 mg Ciprofloxacin (Cipro) 250 mg PO BID [facility] Stop: 10/15/17 10:14 Last Admin: 08/22/17 08:30 Dose: 250 mg Clonazepam (Klonopin) 0.5 mg PO BID PRN; Protocol PRN Reason: Anxiety Stop: 10/15/17 08:59 Last Admin: 08/21/17 16:42 Dose: 0.5 mg Divalproex Sodium (Depakote Dr) 250 mg PO TID [facility] PRN Reason: Protocol Stop: 10/20/17 13:59 Last Admin: 08/22/17 08:30 Dose: 250 mg Hydrochlorothiazide (Hctz) 25 mg PO DAILY [facility] Stop: 10/15/17 08:59 Last Admin: 08/22/17 08:31 Dose: 25 mg Lactobacillus Rhamnosus (Culturelle) 1 each PO DAILY [facility] Stop: 10/17/17 08:59 Last Admin: 08/22/17 08:29 Dose: 1 each Levothyroxine Sodium (Synthroid) 0.075 mg PO QDAC [facility] Stop: 10/15/17 07:29 Last Admin: 08/22/17 06:44 Dose: 0.075 mg Lorazepam (Ativan) 0.5 mg PO Q4HR PRN; Protocol PRN Reason: Agitation Stop: 10/16/17 10:52 Last Admin: 08/20/17 02:45 Dose: 0.5 mg Magnesium Hydroxide (Milk Of Magnesia) 30 ml PO HS PRN PRN Reason: Constipation Miscellaneous (Probiotic Screen) 1 ea MC PRN PRN PRN Reason: PROTOCOL Stop: 10/16/17 17:14 Risperidone (Risperdal) 2 mg PO BID [facility] PRN Reason: Protocol Stop: 10/15/17 16:59 Last Admin: 08/22/17 08:29 Dose: 2 mg Vitamin B Complex/Vit C/Folic Acid (Vitamin B Complex W/Vitamin C) 1 tab PO DAILY [facility] Stop: 10/15/17 08:59 Last Admin: 08/22/17 08:31 Dose: 1 tab Zolpidem Tartrate (Ambien) 5 mg PO HS PRN PRN Reason: Insomnia Stop: 10/14/17 20:32 Last Admin: 08/16/17 21:18 Dose: 5 mg - Procedures Procedures: Procedures Procedure Code Date INDIVID PSYCHOTHERAP NEC 94.39 09/27/08 OTHER GROUP THERAPY 94.44 10/14/08 RECREATIONAL THERAPY 93.81 10/14/08 Assessment/Plan - Problem List Patient Problems: All Active Problems AGITATION AND UNCOOPERATIVE WITH CARE (Acute) - Assessment Assessment: * Multiple spiculated lung nodules, likely malignant * Liver cyst. CT contrast showed no evidence of mass * Psychosis Will need biopsy from nodules in tertiary care center
--- NOTE | 2017-08-22 20:41 | Progress Notes ---
DATE: 08/22/2017 PSYCHIATRIC PROGRESS NOTE SUBJECTIVE: Staff was spoken to. The patient is interviewed. Mood is noted to be irritable. Affect is constricted. The patient is stating that he needs to get the shot and he needs to be taken care of the injections, not with the pain medications. The patient has been focused on pain pills this morning. Paranoid delusions are noted. Insight and judgment were noted to be improving. No side effects to the medications are noted. The patient is currently on the valproic acid 250 mg 3 times a day and patient has also been given the Risperdal 2 mg twice a day. Plan to check the Depakote level. I encouraged the patient to verbalize the concerns rather than to act out. The patient is fixated also on the Wellbutrin. ASSESSMENT: The patient is still psychotic and mood swings are coming under control. PLAN: To continue the patient with the supportive therapy. I encouraged the patient to verbalize the concerns rather than to act out. [facility]# [id number]
[2017-08-23] MEDS: Levothyroxine 0.075 Mg Tab PO SCH ×2 (06:59)
[2017-08-23] MEDS: Lactobacillus Rhamnosus 10 Billion CFU Capsule PO SCH ×2 (08:31)
[2017-08-23] MEDS: Multivitamin w/ Minerals Tab PO SCH ×2 (08:31)
[2017-08-23] MEDS: Vitamin B Complex w/Vitamin C Tab PO SCH ×2 (08:32)
[2017-08-23] MEDS ORDERED: Hydrocodone/APAP 5mg/325mg Tab PO PRN ×2 (14:08)
--- NOTE | 2017-08-23 15:43 | General Progress Note ---
Subjective - Review of Systems Service Date: 08/23/17 Subjective: irritable Objective - Results Result Diagrams: 08/16/17 09:10 08/17/17 09:20 Recent Labs: Laboratory Last Values WBC 6.5 Th/cmm (4.8-10.8) 08/16/17 09:10 RBC 4.17 Mil/cmm (4.30-5.70) L 08/16/17 09:10 Hgb 13.1 gm/dL (12-16) 08/16/17 09:10 Hct 39.7 % (41.0-60) L 08/16/17 09:10 MCV 95.0 fl (80-99) 08/16/17 09:10 MCH 31.4 pg (26.0-30.0) H 08/16/17 09:10 MCHC Differential 33.1 pg (28.0-36.0) 08/16/17 09:10 RDW 13.9 % (11.5-20.0) 08/16/17 09:10 Plt Count 216 Th/cmm (150-400) 08/16/17 09:10 MPV 7.7 fl 08/16/17 09:10 Neutrophils % 56.5 % (40.0-80.0) 08/16/17 09:10 Lymphocytes % 31.1 % (20.0-50.0) 08/16/17 09:10 Monocytes % 6.9 % (2.0-10.0) 08/16/17 09:10 Eosinophils % 4.1 % (0.0-5.0) 08/16/17 09:10 Basophils % 1.4 % (0.0-2.0) 08/16/17 09:10 PT 11.2 SECONDS (9.5-11.5) 08/18/17 13:14 INR 1.08 (0.5-1.4) 08/18/17 13:14 PTT (Actin FS) 32.3 SECONDS (26.0-38.0) 08/18/17 13:14 Sodium 139 mEq/L (136-145) 08/17/17 09:20 Potassium 3.4 mEq/L (3.5-5.1) L 08/17/17 09:20 Chloride 107 mEq/L (98-107) 08/17/17 09:20 Carbon Dioxide 27.6 mEq/L (21.0-31.0) 08/17/17 09:20 Anion Gap 7.8 (7.0-16.0) 08/17/17 09:20 BUN 21 mg/dL (7-25) 08/17/17 09:20 Creatinine 1.0 mg/dL (0.7-1.3) 08/17/17 09:20 Est GFR ( Amer) > 60.0 ml/min (>90) 08/17/17 09:20 Est GFR (Non-Af Amer) > 60.0 ml/min 08/17/17 09:20 BUN/Creatinine Ratio 21.0 08/17/17 09:20 Glucose 91 mg/dL (70-105) 08/17/17 09:20 POC Glucose 132 MG/DL (70 - 105) H 08/19/17 06:19 Hemoglobin A1c % 5.0 % (4.0-6.0) 08/15/17 18:42 Calcium 9.6 mg/dL (8.6-10.3) 08/17/17 09:20 Magnesium 2.0 mg/dL (1.9-2.7) 08/17/17 09:20 Total Bilirubin 1.1 mg/dL (0.3-1.0) H 08/16/17 09:10 AST 52 U/L (13-39) H 08/16/17 09:10 ALT 62 U/L (7-52) H 08/16/17 09:10 Alkaline Phosphatase 65 U/L (34-104) 08/16/17 09:10 Troponin I < 0.01 ng/mL (0.01-0.05) L 08/15/17 18:42 B-Natriuretic Peptide 21.3 pg/mL (5.0-100.0) 08/15/17 18:42 Total Protein 8.2 gm/dL (6.0-8.3) 08/16/17 09:10 Albumin 4.3 gm/dL (4.2-5.5) 08/16/17 09:10 Globulin 3.9 gm/dL 08/16/17 09:10 Albumin/Globulin Ratio 1.1 (1.0-1.8) 08/16/17 09:10 Tumor Marker AFP 2.2 ng/mL (0.0-8.3) 08/17/17 09:20 Carcinoembryonic Ag 2.9 ng/mL (0.0-4.7) 08/17/17 09:20 Urine Source RANDOM 08/15/17 18:49 Urine Color BROWN 08/15/17 18:49 Urine Clarity HAZY (CLEAR) 08/15/17 18:49 Urine pH 6.5 (4.6 - 8.0) 08/15/17 18:49 Ur Specific [place] 1.025 (1.005-1.030) 08/15/17 18:49 Urine Protein 100 mg/dL (NEGATIVE) H 08/15/17 18:49 Urine Glucose (UA) NEGATIVE mg/dL (NEGATIVE) 08/15/17 18:49 Urine Ketones NEGATIVE mg/dL (NEGATIVE) 08/15/17 18:49 Urine Blood LARGE (NEGATIVE) H 08/15/17 18:49 Urine Nitrate NEGATIVE (NEGATIVE) 08/15/17 18:49 Urine Bilirubin SMALL (NEGATIVE) H 08/15/17 18:49 Urine Urobilinogen 1.0 E.U./dL (0.2 - 1.0) 08/15/17 18:49 Ur Leukocyte Esterase LARGE (NEGATIVE) H 08/15/17 18:49 Urine RBC >100 /hpf (0-5) H 08/15/17 18:49 Urine WBC 50-100 /hpf (0-5) H 08/15/17 18:49 Ur Epithelial Cells FEW /lpf (FEW) 08/15/17 18:49 Urine Bacteria MODERATE /hpf (NONE SEEN) 08/15/17 18:49 Urine Opiates Screen POSITIVE (NEGATIVE) H 08/15/17 18:49 Urine Methadone Screen NEGATIVE (NEGATIVE) 08/15/17 18:49 Ur Barbiturates Screen NEGATIVE (NEGATIVE) 08/15/17 18:49 Valproic Acid 52.6 ug/mL (50.0-100.0) 08/22/17 10:20 Ur Tricyclics Screen NEGATIVE (NEGATIVE) 08/15/17 18:49 Ur Phencyclidine Scrn NEGATIVE (NEGATIVE) 08/15/17 18:49 Amphetamines Screen NEGATIVE (NEGATIVE) 08/15/17 18:49 U Methamphetamines Scrn NEGATIVE (NEGATIVE) 08/15/17 18:49 U Benzodiazepines Scrn POSITIVE (NEGATIVE) H 08/15/17 18:49 U Cocaine Metab Screen NEGATIVE (NEGATIVE) 08/15/17 18:49 U Cannabinoids Screen NEGATIVE (NEGATIVE) 08/15/17 18:49 Hep Bs Antigen Negative (Negative) 08/17/17 09:20 Hep Bs Antibody, Quant 5.3 mIU/mL (Immunity>9.9) L 08/17/17 09:20 Hep B Core IgM Ab Negative (Negative) 08/17/17 09:20 HCV RNA Quant (bDNA) SEE REF. LAB REPORT 08/17/17 09:20 - Physical Exam Vitals and I&O: Vital Signs Temp 98.0 F 08/23/17 06:10 Pulse 65 08/23/17 08:32 Resp 20 08/23/17 06:10 BP 152/88 08/23/17 08:32 Pulse Ox 96 08/23/17 06:10 Intake & Output 08/22/17 08/23/17 08/23/17 18:59 06:59 18:59 Intake Total 360 Balance 360 Intake: Oral 360 Other: # Voids 1 # Bowel Movements 0 Active Medications: Current Medications Acetaminophen (Tylenol) 650 mg PO Q4HR PRN PRN Reason: Mild Pain / Temp above 100 Stop: 10/14/17 23:10 Acetaminophen/Hydrocodone Bitart ([place] 5mg/325mg) 1 tab PO Q8H PRN PRN Reason: Pain (Severe) Stop: 10/22/17 14:07 Amlodipine Besylate (Norvasc) 10 mg PO DAILY [facility] Stop: 10/15/17 08:59 Last Admin: 08/23/17 08:31 Dose: 10 mg Benazepril HCl (Lotensin) 10 mg PO DAILY [facility] Stop: 10/20/17 16:29 Last Admin: 08/23/17 08:32 Dose: 10 mg Bisacodyl (Dulcolax 10 Mg Supp) 10 mg RC DAILY PRN PRN Reason: Constipation Stop: 10/14/17 22:42 Buspirone HCl (Buspar) 10 mg PO TID [facility] PRN Reason: Protocol Stop: 10/15/17 08:59 Last Admin: 08/23/17 14:25 Dose: 10 mg Ciprofloxacin (Cipro) 250 mg PO BID [facility] Stop: 10/15/17 10:14 Last Admin: 08/23/17 08:30 Dose: 250 mg Clonazepam (Klonopin) 0.5 mg PO BID PRN; Protocol PRN Reason: Anxiety Stop: 10/15/17 08:59 Last Admin: 08/21/17 16:42 Dose: 0.5 mg Divalproex Sodium (Depakote Dr) 250 mg PO TID [facility] PRN Reason: Protocol Stop: 10/20/17 13:59 Last Admin: 08/23/17 14:25 Dose: 250 mg Hydrochlorothiazide (Hctz) 25 mg PO DAILY [facility] Stop: 10/15/17 08:59 Last Admin: 08/23/17 08:32 Dose: 25 mg Lactobacillus Rhamnosus (Culturelle) 1 each PO DAILY [facility] Stop: 10/17/17 08:59 Last Admin: 08/23/17 08:31 Dose: 1 each Levothyroxine Sodium (Synthroid) 0.075 mg PO QDAC [facility] Stop: 10/15/17 07:29 Last Admin: 08/23/17 06:59 Dose: 0.075 mg Lorazepam (Ativan) 0.5 mg PO Q4HR PRN; Protocol PRN Reason: Agitation Stop: 10/16/17 10:52 Last Admin: 08/23/17 14:25 Dose: 0.5 mg Magnesium Hydroxide (Milk Of Magnesia) 30 ml PO HS PRN PRN Reason: Constipation Miscellaneous (Probiotic Screen) 1 ea [facility] PRN PRN PRN Reason: PROTOCOL Stop: 10/16/17 17:14 Risperidone (Risperdal) 2 mg PO BID [facility] PRN Reason: Protocol Stop: 10/15/17 16:59 Last Admin: 08/23/17 08:31 Dose: 2 mg Vitamin B Complex/Vit C/Folic Acid (Vitamin B Complex W/Vitamin C) 1 tab PO DAILY [facility] Stop: 10/15/17 08:59 Last Admin: 08/23/17 08:32 Dose: 1 tab Zolpidem Tartrate (Ambien) 5 mg PO HS PRN PRN Reason: Insomnia Stop: 10/14/17 20:32 Last Admin: 08/22/17 23:44 Dose: 5 mg - Procedures Procedures: Procedures Procedure Code Date INDIVID PSYCHOTHERAP NEC 94.39 09/27/08 OTHER GROUP THERAPY 94.44 10/14/08 RECREATIONAL THERAPY 93.81 10/14/08 Assessment/Plan - Problem List Patient Problems: All Active Problems AGITATION AND UNCOOPERATIVE WITH CARE (Acute) - Assessment Assessment: * Multiple spiculated lung nodules, likely malignant * Liver cyst. CT contrast showed no evidence of mass * Psychosis Will need biopsy from nodules in tertiary care center Nutritional Asmnt/Malnutr-PDOC - Dietary Evaluation Malnutrition Findings (Please click <Entered> for more info): Nutritional Asmnt/Malnutrition Start: 08/23/17 12: 00 Text: Status: Active Freq: Document 08/23/17 12:00 [email or web address] (Rec: 08/23/17 12:35 [email or web address]) Nutritional Asmnt/Malnutrition Patient General Information Diagnosis psychosis Pertinent Medical Hx/Surgical Hx HTN, UTI, dementia, schizophrenia, substance abuse Subjective Information Pt irritable but is eating 100 % of meals. On DM diet despite no hx of DM and glucose: WNL. Current Diet Order/ Nutrition Support [facility] 60 gm Patient / S.O Not Indicated Pertinent Medications cipro, HCTZ, culturelle, synthroid, MOM, vit b/c/folic acid complex Pertinent Labs 08/17 K: 3.4, hgba1c: 5.0- WNL , AST: 52, ALT: 62 Nutritional Hx/Data Height 1.73 m Height (Calculated Centimeters) 172.7 Current Weight (lbs) 68.492 kg Weight (Calculated Kilograms) 68.5 Weight (Calculated Grams) 79953.4 [place] Body Weight 154 lbs % [place] Body Weight 98 Weight Status Approriate GI Symptoms GI Symptoms None Food Allergies No Skin Integrity/Comment: intact, no edema Current %PO Good (75-100%) Estimated Nutritional Goals BEE in Kcals: Using Current wt Calories/Kcals/Kg 25-30 Kcals Calculated [id number] Protein: Using Current wt Protein g/k Protein Calculated 69 Fluid: ml 4603-9362 ml (1 ml/kcal) Nutritional Problem No current Nutrition Prob Problem n/a Etiology n/a Signs/Symptoms: n/a Malnutrition Alert Protein-Calorie Malnutrition N/A Is there a minimum of two criteria No selected? Query Text:Check all the applicable criteria. A minimum of two criteria are recommended for diagnosis of either severe or non-severe malnutrition. Malnutrition Related to Morbid Obesity Malnutrition related to morbid obesity No Intervention/Recommendation Comments 1. Change diet to regular as pt has no hx of DM Expected Outcomes/Goals Expected Outcomes/Goals goals: PO intake >75%, wt stability, labs approach WNL, skin to remain intact
--- NOTE | 2017-08-23 15:43 | General Progress Note ---
Subjective - Review of Systems Service Date: 08/23/17 Subjective: irritable Objective - Results Result Diagrams: 08/16/17 09:10 08/17/17 09:20 Recent Labs: Laboratory Last Values WBC 6.5 Th/cmm (4.8-10.8) 08/16/17 09:10 RBC 4.17 Mil/cmm (4.30-5.70) L 08/16/17 09:10 Hgb 13.1 gm/dL (12-16) 08/16/17 09:10 Hct 39.7 % (41.0-60) L 08/16/17 09:10 MCV 95.0 fl (80-99) 08/16/17 09:10 MCH 31.4 pg (26.0-30.0) H 08/16/17 09:10 MCHC Differential 33.1 pg (28.0-36.0) 08/16/17 09:10 RDW 13.9 % (11.5-20.0) 08/16/17 09:10 Plt Count 216 Th/cmm (150-400) 08/16/17 09:10 MPV 7.7 fl 08/16/17 09:10 Neutrophils % 56.5 % (40.0-80.0) 08/16/17 09:10 Lymphocytes % 31.1 % (20.0-50.0) 08/16/17 09:10 Monocytes % 6.9 % (2.0-10.0) 08/16/17 09:10 Eosinophils % 4.1 % (0.0-5.0) 08/16/17 09:10 Basophils % 1.4 % (0.0-2.0) 08/16/17 09:10 PT 11.2 SECONDS (9.5-11.5) 08/18/17 13:14 INR 1.08 (0.5-1.4) 08/18/17 13:14 PTT (Actin FS) 32.3 SECONDS (26.0-38.0) 08/18/17 13:14 Sodium 139 mEq/L (136-145) 08/17/17 09:20 Potassium 3.4 mEq/L (3.5-5.1) L 08/17/17 09:20 Chloride 107 mEq/L (98-107) 08/17/17 09:20 Carbon Dioxide 27.6 mEq/L (21.0-31.0) 08/17/17 09:20 Anion Gap 7.8 (7.0-16.0) 08/17/17 09:20 BUN 21 mg/dL (7-25) 08/17/17 09:20 Creatinine 1.0 mg/dL (0.7-1.3) 08/17/17 09:20 Est GFR ( Amer) > 60.0 ml/min (>90) 08/17/17 09:20 Est GFR (Non-Af Amer) > 60.0 ml/min 08/17/17 09:20 BUN/Creatinine Ratio 21.0 08/17/17 09:20 Glucose 91 mg/dL (70-105) 08/17/17 09:20 POC Glucose 132 MG/DL (70 - 105) H 08/19/17 06:19 Hemoglobin A1c % 5.0 % (4.0-6.0) 08/15/17 18:42 Calcium 9.6 mg/dL (8.6-10.3) 08/17/17 09:20 Magnesium 2.0 mg/dL (1.9-2.7) 08/17/17 09:20 Total Bilirubin 1.1 mg/dL (0.3-1.0) H 08/16/17 09:10 AST 52 U/L (13-39) H 08/16/17 09:10 ALT 62 U/L (7-52) H 08/16/17 09:10 Alkaline Phosphatase 65 U/L (34-104) 08/16/17 09:10 Troponin I < 0.01 ng/mL (0.01-0.05) L 08/15/17 18:42 B-Natriuretic Peptide 21.3 pg/mL (5.0-100.0) 08/15/17 18:42 Total Protein 8.2 gm/dL (6.0-8.3) 08/16/17 09:10 Albumin 4.3 gm/dL (4.2-5.5) 08/16/17 09:10 Globulin 3.9 gm/dL 08/16/17 09:10 Albumin/Globulin Ratio 1.1 (1.0-1.8) 08/16/17 09:10 Tumor Marker AFP 2.2 ng/mL (0.0-8.3) 08/17/17 09:20 Carcinoembryonic Ag 2.9 ng/mL (0.0-4.7) 08/17/17 09:20 Urine Source RANDOM 08/15/17 18:49 Urine Color BROWN 08/15/17 18:49 Urine Clarity HAZY (CLEAR) 08/15/17 18:49 Urine pH 6.5 (4.6 - 8.0) 08/15/17 18:49 Ur Specific [place] 1.025 (1.005-1.030) 08/15/17 18:49 Urine Protein 100 mg/dL (NEGATIVE) H 08/15/17 18:49 Urine Glucose (UA) NEGATIVE mg/dL (NEGATIVE) 08/15/17 18:49 Urine Ketones NEGATIVE mg/dL (NEGATIVE) 08/15/17 18:49 Urine Blood LARGE (NEGATIVE) H 08/15/17 18:49 Urine Nitrate NEGATIVE (NEGATIVE) 08/15/17 18:49 Urine Bilirubin SMALL (NEGATIVE) H 08/15/17 18:49 Urine Urobilinogen 1.0 E.U./dL (0.2 - 1.0) 08/15/17 18:49 Ur Leukocyte Esterase LARGE (NEGATIVE) H 08/15/17 18:49 Urine RBC >100 /hpf (0-5) H 08/15/17 18:49 Urine WBC 50-100 /hpf (0-5) H 08/15/17 18:49 Ur Epithelial Cells FEW /lpf (FEW) 08/15/17 18:49 Urine Bacteria MODERATE /hpf (NONE SEEN) 08/15/17 18:49 Urine Opiates Screen POSITIVE (NEGATIVE) H 08/15/17 18:49 Urine Methadone Screen NEGATIVE (NEGATIVE) 08/15/17 18:49 Ur Barbiturates Screen NEGATIVE (NEGATIVE) 08/15/17 18:49 Valproic Acid 52.6 ug/mL (50.0-100.0) 08/22/17 10:20 Ur Tricyclics Screen NEGATIVE (NEGATIVE) 08/15/17 18:49 Ur Phencyclidine Scrn NEGATIVE (NEGATIVE) 08/15/17 18:49 Amphetamines Screen NEGATIVE (NEGATIVE) 08/15/17 18:49 U Methamphetamines Scrn NEGATIVE (NEGATIVE) 08/15/17 18:49 U Benzodiazepines Scrn POSITIVE (NEGATIVE) H 08/15/17 18:49 U Cocaine Metab Screen NEGATIVE (NEGATIVE) 08/15/17 18:49 U Cannabinoids Screen NEGATIVE (NEGATIVE) 08/15/17 18:49 Hep Bs Antigen Negative (Negative) 08/17/17 09:20 Hep Bs Antibody, Quant 5.3 mIU/mL (Immunity>9.9) L 08/17/17 09:20 Hep B Core IgM Ab Negative (Negative) 08/17/17 09:20 HCV RNA Quant (bDNA) SEE REF. LAB REPORT 08/17/17 09:20 - Physical Exam Vitals and I&O: Vital Signs Temp 98.0 F 08/23/17 06:10 Pulse 65 08/23/17 08:32 Resp 20 08/23/17 06:10 BP 152/88 08/23/17 08:32 Pulse Ox 96 08/23/17 06:10 Intake & Output 08/22/17 08/23/17 08/23/17 18:59 06:59 18:59 Intake Total 360 Balance 360 Intake: Oral 360 Other: # Voids 1 # Bowel Movements 0 Active Medications: Current Medications Acetaminophen (Tylenol) 650 mg PO Q4HR PRN PRN Reason: Mild Pain / Temp above 100 Stop: 10/14/17 23:10 Acetaminophen/Hydrocodone Bitart ([place] 5mg/325mg) 1 tab PO Q8H PRN PRN Reason: Pain (Severe) Stop: 10/22/17 14:07 Amlodipine Besylate (Norvasc) 10 mg PO DAILY ON LICENSE OF [facility] Stop: 10/15/17 08:59 Last Admin: 08/23/17 08:31 Dose: 10 mg Benazepril HCl (Lotensin) 10 mg PO DAILY ON LICENSE OF [facility] Stop: 10/20/17 16:29 Last Admin: 08/23/17 08:32 Dose: 10 mg Bisacodyl (Dulcolax 10 Mg Supp) 10 mg RC DAILY PRN PRN Reason: Constipation Stop: 10/14/17 22:42 Buspirone HCl (Buspar) 10 mg PO TID ON LICENSE OF [facility] PRN Reason: Protocol Stop: 10/15/17 08:59 Last Admin: 08/23/17 14:25 Dose: 10 mg Ciprofloxacin (Cipro) 250 mg PO BID ON LICENSE OF [facility] Stop: 10/15/17 10:14 Last Admin: 08/23/17 08:30 Dose: 250 mg Clonazepam (Klonopin) 0.5 mg PO BID PRN; Protocol PRN Reason: Anxiety Stop: 10/15/17 08:59 Last Admin: 08/21/17 16:42 Dose: 0.5 mg Divalproex Sodium (Depakote Dr) 250 mg PO TID KRISTY PRN Reason: Protocol Stop: 10/20/17 13:59 Last Admin: 08/23/17 14:25 Dose: 250 mg Hydrochlorothiazide (Hctz) 25 mg PO DAILY KRISTY Stop: 10/15/17 08:59 Last Admin: 08/23/17 08:32 Dose: 25 mg Lactobacillus Rhamnosus (Culturelle) 1 each PO DAILY KRISTY Stop: 10/17/17 08:59 Last Admin: 08/23/17 08:31 Dose: 1 each Levothyroxine Sodium (Synthroid) 0.075 mg PO QDAC KRISTY Stop: 10/15/17 07:29 Last Admin: 08/23/17 06:59 Dose: 0.075 mg Lorazepam (Ativan) 0.5 mg PO Q4HR PRN; Protocol PRN Reason: Agitation Stop: 10/16/17 10:52 Last Admin: 08/23/17 14:25 Dose: 0.5 mg Magnesium Hydroxide (Milk Of Magnesia) 30 ml PO HS PRN PRN Reason: Constipation Miscellaneous (Probiotic Screen) 1 ea MC PRN PRN PRN Reason: PROTOCOL Stop: 10/16/17 17:14 Risperidone (Risperdal) 2 mg PO BID KRISTY PRN Reason: Protocol Stop: 10/15/17 16:59 Last Admin: 08/23/17 08:31 Dose: 2 mg Vitamin B Complex/Vit C/Folic Acid (Vitamin B Complex W/Vitamin C) 1 tab PO DAILY KRISTY Stop: 10/15/17 08:59 Last Admin: 08/23/17 08:32 Dose: 1 tab Zolpidem Tartrate (Ambien) 5 mg PO HS PRN PRN Reason: Insomnia Stop: 10/14/17 20:32 Last Admin: 08/22/17 23:44 Dose: 5 mg - Procedures Procedures: Procedures Procedure Code Date INDIVID PSYCHOTHERAP NEC 94.39 09/27/08 OTHER GROUP THERAPY 94.44 10/14/08 RECREATIONAL THERAPY 93.81 10/14/08 Assessment/Plan - Problem List Patient Problems: All Active Problems AGITATION AND UNCOOPERATIVE WITH CARE (Acute) - Assessment Assessment: * Multiple spiculated lung nodules, likely malignant * Liver cyst. CT contrast showed no evidence of mass * Psychosis Will need biopsy from nodules in tertiary care center Nutritional Asmnt/Malnutr-PDOC - Dietary Evaluation Malnutrition Findings (Please click <Entered> for more info): Nutritional Asmnt/Malnutrition Start: 08/23/17 12: 00 Text: Status: Active Freq: Document 08/23/17 12:00 [email or web address] (Rec: 08/23/17 12:35 [email or web address]) Nutritional Asmnt/Malnutrition Patient General Information Diagnosis psychosis Pertinent Medical Hx/Surgical Hx HTN, UTI, dementia, schizophrenia, substance abuse Subjective Information Pt irritable but is eating 100 % of meals. On DM diet despite no hx of DM and glucose: WNL. Current Diet Order/ Nutrition Support CCHHO 60 gm Patient / S.O Not Indicated Pertinent Medications cipro, HCTZ, culturelle, synthroid, MOM, vit b/c/folic acid complex Pertinent Labs 08/17 K: 3.4, hgba1c: 5.0- WNL , AST: 52, ALT: 62 Nutritional Hx/Data Height 1.73 m Height (Calculated Centimeters) 172.7 Current Weight (lbs) 68.492 kg Weight (Calculated Kilograms) 68.5 Weight (Calculated Grams) 21272.4 [place] Body Weight 154 lbs % [place] Body Weight 98 Weight Status Approriate GI Symptoms GI Symptoms None Food Allergies No Skin Integrity/Comment: intact, no edema Current %PO Good (75-100%) Estimated Nutritional Goals BEE in Kcals: Using Current wt Calories/Kcals/Kg 25-30 Kcals Calculated 2483-4479 Protein: Using Current wt Protein g/k Protein Calculated 69 Fluid: ml 6585-5802 ml (1 ml/kcal) Nutritional Problem No current Nutrition Prob Problem n/a Etiology n/a Signs/Symptoms: n/a Malnutrition Alert Protein-Calorie Malnutrition N/A Is there a minimum of two criteria No selected? Query Text:Check all the applicable criteria. A minimum of two criteria are recommended for diagnosis of either severe or non-severe malnutrition. Malnutrition Related to Morbid Obesity Malnutrition related to morbid obesity No Intervention/Recommendation Comments 1. Change diet to regular as pt has no hx of DM Expected Outcomes/Goals Expected Outcomes/Goals goals: PO intake >75%, wt stability, labs approach WNL, skin to remain intact
--- NOTE | 2017-08-23 15:43 | General Progress Note ---
Subjective - Review of Systems Service Date: 08/23/17 Subjective: irritable Objective - Results Result Diagrams: 08/16/17 09:10 08/17/17 09:20 Recent Labs: Laboratory Last Values WBC 6.5 Th/cmm (4.8-10.8) 08/16/17 09:10 RBC 4.17 Mil/cmm (4.30-5.70) L 08/16/17 09:10 Hgb 13.1 gm/dL (12-16) 08/16/17 09:10 Hct 39.7 % (41.0-60) L 08/16/17 09:10 MCV 95.0 fl (80-99) 08/16/17 09:10 MCH 31.4 pg (26.0-30.0) H 08/16/17 09:10 MCHC Differential 33.1 pg (28.0-36.0) 08/16/17 09:10 RDW 13.9 % (11.5-20.0) 08/16/17 09:10 Plt Count 216 Th/cmm (150-400) 08/16/17 09:10 MPV 7.7 fl 08/16/17 09:10 Neutrophils % 56.5 % (40.0-80.0) 08/16/17 09:10 Lymphocytes % 31.1 % (20.0-50.0) 08/16/17 09:10 Monocytes % 6.9 % (2.0-10.0) 08/16/17 09:10 Eosinophils % 4.1 % (0.0-5.0) 08/16/17 09:10 Basophils % 1.4 % (0.0-2.0) 08/16/17 09:10 PT 11.2 SECONDS (9.5-11.5) 08/18/17 13:14 INR 1.08 (0.5-1.4) 08/18/17 13:14 PTT (Actin FS) 32.3 SECONDS (26.0-38.0) 08/18/17 13:14 Sodium 139 mEq/L (136-145) 08/17/17 09:20 Potassium 3.4 mEq/L (3.5-5.1) L 08/17/17 09:20 Chloride 107 mEq/L (98-107) 08/17/17 09:20 Carbon Dioxide 27.6 mEq/L (21.0-31.0) 08/17/17 09:20 Anion Gap 7.8 (7.0-16.0) 08/17/17 09:20 BUN 21 mg/dL (7-25) 08/17/17 09:20 Creatinine 1.0 mg/dL (0.7-1.3) 08/17/17 09:20 Est GFR ( Amer) > 60.0 ml/min (>90) 08/17/17 09:20 Est GFR (Non-Af Amer) > 60.0 ml/min 08/17/17 09:20 BUN/Creatinine Ratio 21.0 08/17/17 09:20 Glucose 91 mg/dL (70-105) 08/17/17 09:20 POC Glucose 132 MG/DL (70 - 105) H 08/19/17 06:19 Hemoglobin A1c % 5.0 % (4.0-6.0) 08/15/17 18:42 Calcium 9.6 mg/dL (8.6-10.3) 08/17/17 09:20 Magnesium 2.0 mg/dL (1.9-2.7) 08/17/17 09:20 Total Bilirubin 1.1 mg/dL (0.3-1.0) H 08/16/17 09:10 AST 52 U/L (13-39) H 08/16/17 09:10 ALT 62 U/L (7-52) H 08/16/17 09:10 Alkaline Phosphatase 65 U/L (34-104) 08/16/17 09:10 Troponin I < 0.01 ng/mL (0.01-0.05) L 08/15/17 18:42 B-Natriuretic Peptide 21.3 pg/mL (5.0-100.0) 08/15/17 18:42 Total Protein 8.2 gm/dL (6.0-8.3) 08/16/17 09:10 Albumin 4.3 gm/dL (4.2-5.5) 08/16/17 09:10 Globulin 3.9 gm/dL 08/16/17 09:10 Albumin/Globulin Ratio 1.1 (1.0-1.8) 08/16/17 09:10 Tumor Marker AFP 2.2 ng/mL (0.0-8.3) 08/17/17 09:20 Carcinoembryonic Ag 2.9 ng/mL (0.0-4.7) 08/17/17 09:20 Urine Source RANDOM 08/15/17 18:49 Urine Color BROWN 08/15/17 18:49 Urine Clarity HAZY (CLEAR) 08/15/17 18:49 Urine pH 6.5 (4.6 - 8.0) 08/15/17 18:49 Ur Specific [place] 1.025 (1.005-1.030) 08/15/17 18:49 Urine Protein 100 mg/dL (NEGATIVE) H 08/15/17 18:49 Urine Glucose (UA) NEGATIVE mg/dL (NEGATIVE) 08/15/17 18:49 Urine Ketones NEGATIVE mg/dL (NEGATIVE) 08/15/17 18:49 Urine Blood LARGE (NEGATIVE) H 08/15/17 18:49 Urine Nitrate NEGATIVE (NEGATIVE) 08/15/17 18:49 Urine Bilirubin SMALL (NEGATIVE) H 08/15/17 18:49 Urine Urobilinogen 1.0 E.U./dL (0.2 - 1.0) 08/15/17 18:49 Ur Leukocyte Esterase LARGE (NEGATIVE) H 08/15/17 18:49 Urine RBC >100 /hpf (0-5) H 08/15/17 18:49 Urine WBC 50-100 /hpf (0-5) H 08/15/17 18:49 Ur Epithelial Cells FEW /lpf (FEW) 08/15/17 18:49 Urine Bacteria MODERATE /hpf (NONE SEEN) 08/15/17 18:49 Urine Opiates Screen POSITIVE (NEGATIVE) H 08/15/17 18:49 Urine Methadone Screen NEGATIVE (NEGATIVE) 08/15/17 18:49 Ur Barbiturates Screen NEGATIVE (NEGATIVE) 08/15/17 18:49 Valproic Acid 52.6 ug/mL (50.0-100.0) 08/22/17 10:20 Ur Tricyclics Screen NEGATIVE (NEGATIVE) 08/15/17 18:49 Ur Phencyclidine Scrn NEGATIVE (NEGATIVE) 08/15/17 18:49 Amphetamines Screen NEGATIVE (NEGATIVE) 08/15/17 18:49 U Methamphetamines Scrn NEGATIVE (NEGATIVE) 08/15/17 18:49 U Benzodiazepines Scrn POSITIVE (NEGATIVE) H 08/15/17 18:49 U Cocaine Metab Screen NEGATIVE (NEGATIVE) 08/15/17 18:49 U Cannabinoids Screen NEGATIVE (NEGATIVE) 08/15/17 18:49 Hep Bs Antigen Negative (Negative) 08/17/17 09:20 Hep Bs Antibody, Quant 5.3 mIU/mL (Immunity>9.9) L 08/17/17 09:20 Hep B Core IgM Ab Negative (Negative) 08/17/17 09:20 HCV RNA Quant (bDNA) SEE REF. LAB REPORT 08/17/17 09:20 - Physical Exam Vitals and I&O: Vital Signs Temp 98.0 F 08/23/17 06:10 Pulse 65 08/23/17 08:32 Resp 20 08/23/17 06:10 BP 152/88 08/23/17 08:32 Pulse Ox 96 08/23/17 06:10 Intake & Output 08/22/17 08/23/17 08/23/17 18:59 06:59 18:59 Intake Total 360 Balance 360 Intake: Oral 360 Other: # Voids 1 # Bowel Movements 0 Active Medications: Current Medications Acetaminophen (Tylenol) 650 mg PO Q4HR PRN PRN Reason: Mild Pain / Temp above 100 Stop: 10/14/17 23:10 Acetaminophen/Hydrocodone Bitart ([place] 5mg/325mg) 1 tab PO Q8H PRN PRN Reason: Pain (Severe) Stop: 10/22/17 14:07 Amlodipine Besylate (Norvasc) 10 mg PO DAILY [facility] Stop: 10/15/17 08:59 Last Admin: 08/23/17 08:31 Dose: 10 mg Benazepril HCl (Lotensin) 10 mg PO DAILY [facility] Stop: 10/20/17 16:29 Last Admin: 08/23/17 08:32 Dose: 10 mg Bisacodyl (Dulcolax 10 Mg Supp) 10 mg RC DAILY PRN PRN Reason: Constipation Stop: 10/14/17 22:42 Buspirone HCl (Buspar) 10 mg PO TID [facility] PRN Reason: Protocol Stop: 10/15/17 08:59 Last Admin: 08/23/17 14:25 Dose: 10 mg Ciprofloxacin (Cipro) 250 mg PO BID [facility] Stop: 10/15/17 10:14 Last Admin: 08/23/17 08:30 Dose: 250 mg Clonazepam (Klonopin) 0.5 mg PO BID PRN; Protocol PRN Reason: Anxiety Stop: 10/15/17 08:59 Last Admin: 08/21/17 16:42 Dose: 0.5 mg Divalproex Sodium (Depakote Dr) 250 mg PO TID KRISTY PRN Reason: Protocol Stop: 10/20/17 13:59 Last Admin: 08/23/17 14:25 Dose: 250 mg Hydrochlorothiazide (Hctz) 25 mg PO DAILY KRISTY Stop: 10/15/17 08:59 Last Admin: 08/23/17 08:32 Dose: 25 mg Lactobacillus Rhamnosus (Culturelle) 1 each PO DAILY KRISTY Stop: 10/17/17 08:59 Last Admin: 08/23/17 08:31 Dose: 1 each Levothyroxine Sodium (Synthroid) 0.075 mg PO QDAC KRISTY Stop: 10/15/17 07:29 Last Admin: 08/23/17 06:59 Dose: 0.075 mg Lorazepam (Ativan) 0.5 mg PO Q4HR PRN; Protocol PRN Reason: Agitation Stop: 10/16/17 10:52 Last Admin: 08/23/17 14:25 Dose: 0.5 mg Magnesium Hydroxide (Milk Of Magnesia) 30 ml PO HS PRN PRN Reason: Constipation Miscellaneous (Probiotic Screen) 1 ea MC PRN PRN PRN Reason: PROTOCOL Stop: 10/16/17 17:14 Risperidone (Risperdal) 2 mg PO BID KRISTY PRN Reason: Protocol Stop: 10/15/17 16:59 Last Admin: 08/23/17 08:31 Dose: 2 mg Vitamin B Complex/Vit C/Folic Acid (Vitamin B Complex W/Vitamin C) 1 tab PO DAILY KRISTY Stop: 10/15/17 08:59 Last Admin: 08/23/17 08:32 Dose: 1 tab Zolpidem Tartrate (Ambien) 5 mg PO HS PRN PRN Reason: Insomnia Stop: 10/14/17 20:32 Last Admin: 08/22/17 23:44 Dose: 5 mg - Procedures Procedures: Procedures Procedure Code Date INDIVID PSYCHOTHERAP NEC 94.39 09/27/08 OTHER GROUP THERAPY 94.44 10/14/08 RECREATIONAL THERAPY 93.81 10/14/08 Assessment/Plan - Problem List Patient Problems: All Active Problems AGITATION AND UNCOOPERATIVE WITH CARE (Acute) - Assessment Assessment: * Multiple spiculated lung nodules, likely malignant * Liver cyst. CT contrast showed no evidence of mass * Psychosis Will need biopsy from nodules in tertiary care center Nutritional Asmnt/Malnutr-PDOC - Dietary Evaluation Malnutrition Findings (Please click <Entered> for more info): Nutritional Asmnt/Malnutrition Start: 08/23/17 12: 00 Text: Status: Active Freq: Document 08/23/17 12:00 [email or web address] (Rec: 08/23/17 12:35 [email or web address]) Nutritional Asmnt/Malnutrition Patient General Information Diagnosis psychosis Pertinent Medical Hx/Surgical Hx HTN, UTI, dementia, schizophrenia, substance abuse Subjective Information Pt irritable but is eating 100 % of meals. On DM diet despite no hx of DM and glucose: WNL. Current Diet Order/ Nutrition Support [facility] 60 gm Patient / S.O Not Indicated Pertinent Medications cipro, HCTZ, culturelle, synthroid, MOM, vit b/c/folic acid complex Pertinent Labs 08/17 K: 3.4, hgba1c: 5.0- WNL , AST: 52, ALT: 62 Nutritional Hx/Data Height 1.73 m Height (Calculated Centimeters) 172.7 Current Weight (lbs) 68.492 kg Weight (Calculated Kilograms) 68.5 Weight (Calculated Grams) 48049.4 [place] Body Weight 154 lbs % [place] Body Weight 98 Weight Status Approriate GI Symptoms GI Symptoms None Food Allergies No Skin Integrity/Comment: intact, no edema Current %PO Good (75-100%) Estimated Nutritional Goals BEE in Kcals: Using Current wt Calories/Kcals/Kg 25-30 Kcals Calculated 2272-3395 Protein: Using Current wt Protein g/k Protein Calculated 69 Fluid: ml 4569-0335 ml (1 ml/kcal) Nutritional Problem No current Nutrition Prob Problem n/a Etiology n/a Signs/Symptoms: n/a Malnutrition Alert Protein-Calorie Malnutrition N/A Is there a minimum of two criteria No selected? Query Text:Check all the applicable criteria. A minimum of two criteria are recommended for diagnosis of either severe or non-severe malnutrition. Malnutrition Related to Morbid Obesity Malnutrition related to morbid obesity No Intervention/Recommendation Comments 1. Change diet to regular as pt has no hx of DM Expected Outcomes/Goals Expected Outcomes/Goals goals: PO intake >75%, wt stability, labs approach WNL, skin to remain intact
--- NOTE | 2017-08-23 23:13 | Progress Notes ---
DATE: 08/23/2017 PSYCHIATRIC PROGRESS NOTE INTERVAL HISTORY: Staff was spoken to. Patient is interviewed. Mood is noted to be irritable. Affect is constricted. Insight and judgment are noted to be still impaired. Impulse control is noted to be poor. Coping skills are also noted to be poor. The patient has been isolative and withdrawn. No side effects to the medications are noted. At this time, the patient is being closely monitored for the impulsive behavior. The patient has been pacing on the unit and valproic acid level is noted to be 52.6 that was done yesterday. The patient so far has been compliant with the medications with the Depakote and the Risperdal. ASSESSMENT: The patient's mood swings are coming under control. PLAN: To continue the patient with the supportive therapy. I encouraged the patient to verbalize the concerns rather than to act out. JOB# [id number]
[2017-08-24] MEDS: Levothyroxine 0.075 Mg Tab PO SCH ×2 (06:38)
[2017-08-24] MEDS: Vitamin B Complex w/Vitamin C Tab PO SCH ×2 (08:24)
[2017-08-24] MEDS: Lactobacillus Rhamnosus 10 Billion CFU Capsule PO SCH ×2 (08:24)
[2017-08-24] MEDS: Multivitamin w/ Minerals Tab PO SCH ×2 (08:24)
[2017-08-25] MEDS: Levothyroxine 0.075 Mg Tab PO SCH ×2 (06:39)
[2017-08-25] MEDS: Lactobacillus Rhamnosus 10 Billion CFU Capsule PO SCH ×2 (08:41)
[2017-08-25] MEDS: Multivitamin w/ Minerals Tab PO SCH ×2 (08:42)
[2017-08-25] MEDS: Vitamin B Complex w/Vitamin C Tab PO SCH ×2 (08:42)
--- NOTE | 2017-08-25 21:52 | Progress Notes ---
DATE: SUBJECTIVE: Chart reviewed and the patient interviewed. Also, discussed the patient's condition with the staff and reviewed records and labs. The patient has been under my care for several years and patient was admitted under Dr. Pa by mistake and transferred to my care. The patient is still rambling and he seems to be confused. Also, had periods of agitation and irritability. Also, his thought processes are circumstantial with occasional flight of ideas. The patient also at times unable to carry on coherent conversation. Also, has manic behavior and pacing up and down the unit and also at times entering other patient's rooms in a confused state. Otherwise, the patient is compliant with taking his medications. Personal hygiene is poor. ASSESSMENT: The patient is still psychotic and exhibiting manic behavior. TREATMENT PLAN: We will continue monitoring his behavior and his condition closely. Also, Depakote blood level that was done on August 22 came back to be 52.6, which is in lower normal limits. We will increase Depakote to 500 mg twice a day and we will continue to work on his psychosis and agitation. JOB# [id number]
[2017-08-26] MEDS: Levothyroxine 0.075 Mg Tab PO SCH ×2 (06:33)
[2017-08-26] MEDS: Vitamin B Complex w/Vitamin C Tab PO SCH ×2 (08:24)
[2017-08-26] MEDS: Multivitamin w/ Minerals Tab PO SCH ×2 (08:25)
[2017-08-26] MEDS: Lactobacillus Rhamnosus 10 Billion CFU Capsule PO SCH ×2 (08:25)
[2017-08-27] MEDS: Levothyroxine 0.075 Mg Tab PO SCH ×2 (06:46)
[2017-08-27] MEDS: Multivitamin w/ Minerals Tab PO SCH ×2 (08:38)
[2017-08-27] MEDS: Vitamin B Complex w/Vitamin C Tab PO SCH ×2 (08:38)
[2017-08-27] MEDS: Lactobacillus Rhamnosus 10 Billion CFU Capsule PO SCH ×2 (08:41)
[2017-08-28] MEDS: Levothyroxine 0.075 Mg Tab PO SCH ×2 (06:29)
[2017-08-28] MEDS: Lactobacillus Rhamnosus 10 Billion CFU Capsule PO SCH ×2 (08:59)
[2017-08-28] MEDS: Multivitamin w/ Minerals Tab PO SCH ×2 (08:59)
[2017-08-28] MEDS: Vitamin B Complex w/Vitamin C Tab PO SCH ×2 (09:00)
--- NOTE | 2017-08-28 11:04 | Progress Notes ---
DATE: SUBJECTIVE: Chart reviewed and the patient interviewed. Also discussed this patient's condition with the staff and reviewed records and labs. The patient is still rambling and he is still in irritable mood. The patient also is still confused, suspicious, and paranoid. The patient also is still pacing up and down the unit. He has difficulty answering questions coherently. He also is still easily agitated. ASSESSMENT: The patient is still psychotic. TREATMENT PLAN: We will continue to monitor his behavior and his condition closely. Also, Depakote was increased to 500 mg twice a day. We will get Depakote level next Tuesday. At the same time, we will continue working on his psychosis and we will continue to follow up closely. JOB# [id number]
--- NOTE | 2017-08-28 14:57 | Consultation ---
DATE OF CONSULTATION: The patient was seen and evaluated. The patient's chart reviewed. Overnight, vital signs are stable. Overnight, nurses report the patient continues to be easily irritable, agitated, responding to internal stimuli and delusions and making outburst and slams door. Today on [id number] evaluation, the patient observed to be responding to internal stimuli, easily agitated, disorganized, and very difficult to engage in a linear conversation. MENTAL STATUS EXAMINATION: Easily disorganized, poor hygiene, malodorous, disorganized, and elated mood. ASSESSMENT AND PLAN: The patient is a 57-year-old male with a history of ____ bipolar type who presents very disorganized and psychotic. Recently, Depakote was increased to 500 mg twice a day. We will continue with primary psychiatrist treatment plan and goals, which includes the Clonazepam, Depakote, and risperidone to target the patient's ____ psychotic state. JOB# [id number]
--- NOTE | 2017-08-28 14:57 | Consultation ---
DATE OF CONSULTATION: The patient was seen and evaluated. The patient's chart reviewed. Overnight, vital signs are stable. Overnight, nurses report the patient continues to be easily irritable, agitated, responding to internal stimuli and delusions and making outburst and slams door. Today on [id number] evaluation, the patient observed to be responding to internal stimuli, easily agitated, disorganized, and very difficult to engage in a linear conversation. MENTAL STATUS EXAMINATION: Easily disorganized, poor hygiene, malodorous, disorganized, and elated mood. ASSESSMENT AND PLAN: The patient is a 57-year-old male with a history of ____ bipolar type who presents very disorganized and psychotic. Recently, Depakote was increased to 500 mg twice a day. We will continue with primary psychiatrist treatment plan and goals, which includes the Clonazepam, Depakote, and risperidone to target the patient's ____ psychotic state. JOB# [id number]
--- NOTE | 2017-08-28 14:57 | Consultation ---
DATE OF CONSULTATION: The patient was seen and evaluated. The patient's chart reviewed. Overnight, vital signs are stable. Overnight, nurses report the patient continues to be easily irritable, agitated, responding to internal stimuli and delusions and making outburst and slams door. Today on [id number] evaluation, the patient observed to be responding to internal stimuli, easily agitated, disorganized, and very difficult to engage in a linear conversation. MENTAL STATUS EXAMINATION: Easily disorganized, poor hygiene, malodorous, disorganized, and elated mood. ASSESSMENT AND PLAN: The patient is a 57-year-old male with a history of ____ bipolar type who presents very disorganized and psychotic. Recently, Depakote was increased to 500 mg twice a day. We will continue with primary psychiatrist treatment plan and goals, which includes the Clonazepam, Depakote, and risperidone to target the patient's ____ psychotic state. JOB# [id number]
[2017-08-29] MEDS: Levothyroxine 0.075 Mg Tab PO SCH ×2 (06:38)
[2017-08-29] MEDS: Multivitamin w/ Minerals Tab PO SCH ×2 (08:42)
[2017-08-29] MEDS: Vitamin B Complex w/Vitamin C Tab PO SCH ×2 (08:43)
[2017-08-29] MEDS: Lactobacillus Rhamnosus 10 Billion CFU Capsule PO SCH ×2 (08:43)
--- NOTE | 2017-08-29 09:27 | Progress Notes ---
DATE: The patient was seen and evaluated. The patient's chart reviewed. Overnight nursing staff reported the patient is easily suspicious, paranoid. Today, on izoh-pe-ikcg evaluation, the patient denies any side effects to any medications, tolerating to recent increased Depakote without complications. MENTAL STATUS EXAMINATION: Easily irritable, suspicious, disorganized thought process, difficult to understand due to ____ thought process. ASSESSMENT AND PLAN: The patient is a 57-year-old male who presents still very disorganized, unable to understand what he is saying coherently ____ unable to formulate a safe plan as he continues to be easily agitated, suspicious and paranoid. JOB# [id number]
--- NOTE | 2017-08-29 09:27 | Progress Notes ---
DATE: The patient was seen and evaluated. The patient's chart reviewed. Overnight nursing staff reported the patient is easily suspicious, paranoid. Today, on mexn-ja-alxo evaluation, the patient denies any side effects to any medications, tolerating to recent increased Depakote without complications. MENTAL STATUS EXAMINATION: Easily irritable, suspicious, disorganized thought process, difficult to understand due to ____ thought process. ASSESSMENT AND PLAN: The patient is a 57-year-old male who presents still very disorganized, unable to understand what he is saying coherently ____ unable to formulate a safe plan as he continues to be easily agitated, suspicious and paranoid. JOB# [id number]
--- NOTE | 2017-08-29 09:27 | Progress Notes ---
DATE: The patient was seen and evaluated. The patient's chart reviewed. Overnight nursing staff reported the patient is easily suspicious, paranoid. Today, on qlys-yd-zrlm evaluation, the patient denies any side effects to any medications, tolerating to recent increased Depakote without complications. MENTAL STATUS EXAMINATION: Easily irritable, suspicious, disorganized thought process, difficult to understand due to ____ thought process. ASSESSMENT AND PLAN: The patient is a 57-year-old male who presents still very disorganized, unable to understand what he is saying coherently ____ unable to formulate a safe plan as he continues to be easily agitated, suspicious and paranoid. JOB# [id number]
--- NOTE | 2017-08-30 06:09 | Progress Notes ---
DATE: SUBJECTIVE: Chart reviewed and the patient interviewed. Also discussed the patient's condition with the staff and reviewed records and labs. The patient is still easily agitated and is still in angry and in irritable mood. The patient also is still pacing up and down the unit and he gets angry and agitated easily. Also, during interview, the patient is disheveled and rambling and thought processes are disorganized. On the other hand, the patient is compliant with taking his medications with no side effects of medications. ASSESSMENT: The patient is still psychotic. TREATMENT PLAN: We will increase Risperdal to 3 mg twice a day. Also, Depakote blood level is pending. Also, continue to work on his agitation and irritability and continue to follow up closely. Also, working with his lead case manager in regard to placement issue and discharge plans. JOB# [id number]
--- NOTE | 2017-08-30 06:09 | Progress Notes ---
DATE: SUBJECTIVE: Chart reviewed and the patient interviewed. Also discussed the patient's condition with the staff and reviewed records and labs. The patient is still easily agitated and is still in angry and in irritable mood. The patient also is still pacing up and down the unit and he gets angry and agitated easily. Also, during interview, the patient is disheveled and rambling and thought processes are disorganized. On the other hand, the patient is compliant with taking his medications with no side effects of medications. ASSESSMENT: The patient is still psychotic. TREATMENT PLAN: We will increase Risperdal to 3 mg twice a day. Also, Depakote blood level is pending. Also, continue to work on his agitation and irritability and continue to follow up closely. Also, working with his manager of case in regard to placement issue and discharge plans. JOB# [id number]
--- NOTE | 2017-08-30 06:09 | Progress Notes ---
DATE: SUBJECTIVE: Chart reviewed and the patient interviewed. Also discussed the patient's condition with the staff and reviewed records and labs. The patient is still easily agitated and is still in angry and in irritable mood. The patient also is still pacing up and down the unit and he gets angry and agitated easily. Also, during interview, the patient is disheveled and rambling and thought processes are disorganized. On the other hand, the patient is compliant with taking his medications with no side effects of medications. ASSESSMENT: The patient is still psychotic. TREATMENT PLAN: We will increase Risperdal to 3 mg twice a day. Also, Depakote blood level is pending. Also, continue to work on his agitation and irritability and continue to follow up closely. Also, working with his family preservation caseworker in regard to placement issue and discharge plans. JOB# [id number]
[2017-08-30] MEDS: Vitamin B Complex w/Vitamin C Tab PO SCH ×2 (08:18)
[2017-08-30] MEDS: Multivitamin w/ Minerals Tab PO SCH ×2 (08:19)
[2017-08-30] MEDS: Levothyroxine 0.075 Mg Tab PO SCH ×2 (08:19)
[2017-08-30] MEDS: Lactobacillus Rhamnosus 10 Billion CFU Capsule PO SCH ×2 (08:20)
--- NOTE | 2017-08-31 05:52 | Progress Notes ---
DATE: SUBJECTIVE: Chart reviewed and the patient interviewed. Also discussed the patient's condition with the staff and reviewed records and labs. The patient continues to be confused and actively hallucinating. The patient also is still pacing up and down the unit in a confused state. The patient also is rambling and his thought processes are disorganized. Also, needs lots of redirections and he is having difficulty following any of staff directions. He also still gets easily agitated. Otherwise, the patient is compliant with taking his medications with no side effects of medications. ASSESSMENT: The patient is still agitated and psychotic and severely anxious. TREATMENT PLAN: We will increase BuSpar to 15 mg 3 times a day. Also, the patient is continuing to take Depakote at a dose of 500 mg twice a day. Also, Risperdal was increased yesterday to 3 mg twice a day with no side effects. We will continue same dose and continue to follow up and continue to work on behavioral modification. Depakote blood level that was done yesterday came back to be 77.1 which is within therapeutic level. JOB# [id number]
[2017-08-31] MEDS: Levothyroxine 0.075 Mg Tab PO SCH ×2 (06:36)
[2017-08-31] MEDS: Vitamin B Complex w/Vitamin C Tab PO SCH ×2 (08:34)
[2017-08-31] MEDS: Multivitamin w/ Minerals Tab PO SCH ×2 (08:34)
--- NOTE | 2017-09-01 19:10 | Discharge Summary ---
DATE OF DISCHARGE: 08/31/2017 FINAL DIAGNOSES AND PRIMARY DIAGNOSES: Schizoaffective disorder, bipolar type, with psychotic features. REASON FOR HOSPITALIZATION: The patient was admitted to the hospital from detention because of increased agitation and irritability and because of anger and aggressive behavior. HOSPITAL COURSE: The patient continued to be extremely irritable and agitated. The patient also was restless and he was pacing up and down the unit. The patient was admitted in the beginning under Dr. Pa's care and transferred to care because of having seen the patient for long periods of time. The patient was given Depakote and Risperdal. Last Depakote level was 77.1, which is within therapeutic level. Also, continued to take Risperdal 3 mg twice a day. Also, was given BuSpar in a dose of 15 mg 3 times a day. The patient was calmer and less agitated and less irritable. The patient was accepted back to the previous placement. Physical examination of the patient showed no major medical problems while in the hospital. Blood workup also was monitored closely and no major problems. AFTER DISCHARGE PLANS: The patient discharged from the hospital with plans to follow up in the detention as an outpatient. EXPECTED OUTCOME AFTER DISCHARGE: Fair if the patient continues to take his psychotropic medications and to follow up with his discharge plans. JOB# [id number]
--- NOTE | 2017-09-01 19:10 | Discharge Summary ---
DATE OF DISCHARGE: 08/31/2017 FINAL DIAGNOSES AND PRIMARY DIAGNOSES: Schizoaffective disorder, bipolar type, with psychotic features. REASON FOR HOSPITALIZATION: The patient was admitted to the hospital from [facility] because of increased agitation and irritability and because of anger and aggressive behavior. HOSPITAL COURSE: The patient continued to be extremely irritable and agitated. The patient also was restless and he was pacing up and down the unit. The patient was admitted in the beginning under Dr. Pa's care and transferred to care because of having seen the patient for long periods of time. The patient was given Depakote and Risperdal. Last Depakote level was 77.1, which is within therapeutic level. Also, continued to take Risperdal 3 mg twice a day. Also, was given BuSpar in a dose of 15 mg 3 times a day. The patient was calmer and less agitated and less irritable. The patient was accepted back to the previous placement. Physical examination of the patient showed no major medical problems while in the hospital. Blood workup also was monitored closely and no major problems. AFTER DISCHARGE PLANS: The patient discharged from the hospital with plans to follow up in the alf as an outpatient. EXPECTED OUTCOME AFTER DISCHARGE: Fair if the patient continues to take his psychotropic medications and to follow up with his discharge plans. JOB# [id number]
--- NOTE | 2017-09-01 19:10 | Discharge Summary ---
DATE OF DISCHARGE: 08/31/2017 FINAL DIAGNOSES AND PRIMARY DIAGNOSES: Schizoaffective disorder, bipolar type, with psychotic features. REASON FOR HOSPITALIZATION: The patient was admitted to the hospital from [facility] because of increased agitation and irritability and because of anger and aggressive behavior. HOSPITAL COURSE: The patient continued to be extremely irritable and agitated. The patient also was restless and he was pacing up and down the unit. The patient was admitted in the beginning under Dr. Pa's care and transferred to care because of having seen the patient for long periods of time. The patient was given Depakote and Risperdal. Last Depakote level was 77.1, which is within therapeutic level. Also, continued to take Risperdal 3 mg twice a day. Also, was given BuSpar in a dose of 15 mg 3 times a day. The patient was calmer and less agitated and less irritable. The patient was accepted back to the previous placement. Physical examination of the patient showed no major medical problems while in the hospital. Blood workup also was monitored closely and no major problems. AFTER DISCHARGE PLANS: The patient discharged from the hospital with plans to follow up in the [facility] as an outpatient. EXPECTED OUTCOME AFTER DISCHARGE: Fair if the patient continues to take his psychotropic medications and to follow up with his discharge plans. JOB# [id number]
== END 2017-08-31 19:20 | disposition home or self-care (01) | DRG 885 ==
LOC: ER 18:11 → GERO 19:48
PROVIDERS: ADMIT Psychiatry & Neurology Psychiatry; ATTEND Psychiatry & Neurology Psychiatry
DX: F25.0 Schizoaffective disorder, bipolar type (principal); F03.91 Unspecified dementia, unspecified severity, with behavioral disturbance; K76.89 Other specified diseases of liver; N39.0 Urinary tract infection, site not specified; F23 Brief psychotic disorder; R91.1 Solitary pulmonary nodule; E86.0 Dehydration; I10 Essential (primary) hypertension; E87.6 Hypokalemia; F41.9 Anxiety disorder, unspecified; G47.00 Insomnia, unspecified; Z87.828 Personal history of other (healed) physical injury and trauma; R91.8 Other nonspecific abnormal finding of lung field
CPT/HCPCS: 36415-UA; 71010-TC; 71250-TC; 80048-TC; 80053-TC; 80164-TC; 80307; 81001-TC; 82105-90; 82378-90; 82948-90; 83036-90; 83735-TC; 83880-TC; 84484-TC; 85025-TC; 85610-TC; 85730-TC; 86705-90; 86706-90; 87086-90; 87340-90; 87341-90; 87522-90; 93005; G0410; J0696; J1630; J2060; J7030; Q9967; Z7502; Z7610

== ENCOUNTER 2017-10-14 14:36 | Inpatient (IN) | payer MEDICARE, MEDICAID ==
[2017-10-14 15:22] LABS: % EOSINOPHILS 6.3 % (0.0-5.0); % MONOCYTES 8.7 % (2.0-10.0); EOSINOPHILE ABSOLUTE 0.5 Th/cmm (0.1-0.4); HEMATOCRIT 42.3 % (41.0-60); HEMOGLOBIN 14.4 gm/dL (12-16); LYMPHOCYTE ABSOLUTE 2.2 Th/cmm (1.5-3.0); MEAN CELL VOLUME 92.2 fl (80-99); MEAN CORPUSCULAR HEMOGLOBIN 31.3 pg (26.0-30.0); MEAN CORPUSCULAR HGB CONC 33.9 pg (28.0-36.0); MEAN PLATELET VOLUME 8.4 fl; MONOCYTE ABSOLUTE 0.7 Th/cmm (0.3-1.0); NEUTROPHILE ABSOLUTE 4.3 Th/cmm (1.8-8.0); PLATELET COUNT 188 Th/cmm (150-400); RED BLOOD COUNT 4.58 Mil/cmm (4.30-5.70); RED CELL DISTRIBUTION WIDTH 13.2 % (11.5-20.0); WHITE BLOOD COUNT 7.7 Th/cmm (4.8-10.8)
[2017-10-14 15:35] LABS: ALB/GLOB RATIO 1.1 (1.0-1.8); ALBUMIN 3.7 gm/dL (4.2-5.5); ALKALINE PHOSPHATASE 45 U/L (34-104); ANION GAP 9.4 (7.0-16.0); BILIRUBIN,TOTAL 0.7 mg/dL (0.3-1.0); BUN - UREA NITROGEN 19 mg/dL (7-25); CALCIUM SERUM 9.7 mg/dL (8.6-10.3); CARBON DIOXIDE 28.7 mEq/L (21.0-31.0); CHLORIDE 104 mEq/L (98-107); GLUCOSE 75 mg/dL (70-105); POTASSIUM SERUM 3.1 mEq/L (3.5-5.1); SGOT 92 U/L (13-39); SGPT/ALT 120 U/L (7-52); SODIUM SERUM 139 mEq/L (136-145)
--- NOTE | 2017-10-14 16:12 | ED Physician Chart ---
ED Chief Complaint/HPI - Patient Information Date Seen:: 10/14/17 Time Seen:: 15:05 Chief Complaint:: Aggressiveness History of Present Illness:: 57 yo male was brought in by BLS from a SNF to ER for evaluation of increasing aggressive behavior. The patient has history of Schizophrenia, depression and insomnia. At ER, the patient was lethargic but vital signs are within normal range. Allergies:: Allergies Allergy/AdvReac Type Severity Reaction Status Date / Time No Known Allergies Allergy Verified 08/15/17 18:19 Vitals:: Vital Signs - 8 hr 10/14/17 14:40 Temp 97.9 F HR 72 RR 14 BP 120/86 O2 Sat % 98 ED Review of Systems - Review of Systems General/Constitutional: No fever, No chills Skin: No bruising Head: No headache Eyes: No pain ENT: No nasal drainage Cardio Vascular: No chest pain Pulmonary: No SOB GI: No nausea, No vomiting G/U: No dysuria Musculoskeletal: No bone or joint pain Psychiatric: Prior psych history ED Past Medical History - Past Medical History Past Medical History: DM, Other (History of metastatic lung cancer) Social History: Non Smoker, No Alcohol, No Drug Use Psychiatricy History: Depression, Schizophrenia, Other (insomnia, EPS) Family Medical History - Family Member Mother History Unknown: Yes Ethnicity: Unknown Living Status: Unknown Hx Family Cancer: No Hx Family Coronary Artery Disease: (Unknown) Hx Family Congestive Heart Failure: No Hx Family Hypertension: (Unknown) Hx Family Stroke: No Hx Family Diabetes: No Hx Family Seizures: No Hx Family Dementia: (Unknown) Hx Family AIDS: (Unknown) Hx Family HIV: No Hx Family COPD: (Unknown) Hx Family Hepatitis: No Hx Family Psychiatric Problems: No Hx Family Tuberculosis: (Unknown) ED Physical Exam - Physical Examination General/Constitutional: Awake, Alert Head: Atraumatic Eyes: PERRL, EOMI Skin: No ecchymosis ENMT: Nasal exam nl Neck: No nuchal rigidity Respiratory: Clear to Auscultation, No Wheeze/Rhonchi/Rales Cardio Vascular: RRR, No murmur, gallop, rubs, NL S1 S2 GI: No tenderness/rebounding/guarding Extremities: normal strength in all extremities Neuro/Psych: No focal deficits ED Labs/Radiology/EKG Results - Lab Results Results: Laboratory Tests 10/14/17 10/14/17 10/14/17 15:12 15:12 15:12 WBC 7.7 RBC 4.58 Hgb 14.4 Hct 42.3 MCV 92.2 MCH 31.3 H MCHC Differential 33.9 RDW 13.2 Plt Count 188 MPV 8.4 Neutrophils % 56.0 Lymphocytes % 29.0 Monocytes % 8.7 Eosinophils % 6.3 H Basophils % 0.0 Sodium 139 Potassium 3.1 L Chloride 104 Carbon Dioxide 28.7 Anion Gap 9.4 BUN 19 Glucose 75 Calcium 9.7 Total Bilirubin 0.7 AST 92 H ALT 120 H Alkaline Phosphatase 45 Total Protein 7.0 Albumin 3.7 L Globulin 3.3 Albumin/Globulin Ratio 1.1 Valproic Acid 45.6 L ED Assessment - Assessment General Assessment: Psychosis History of Schizophrenia History of depression Hypokalemia Hypothyroidism Critical Care Time: 30 min Excludes all billable procedures: Yes This condition life threatening/high prob of deterioration: No Assessment/Comments:: CBC, CMP, TSH EKG ED Septic Shock - . Is Septic Shock (SBP<90, OR Lactate>4 mmol\L) present?: No - <6hrs of presentation: Vital Signs: Vital Signs - 8 hr 10/14/17 14:40 Temp 97.9 F HR 72 RR 14 BP 120/86 O2 Sat % 98 ED Reassessment (Disposition) - Reassessment Reassessment Condition:: Unchanged - Patient Disposition Discharge/Transfer:: Acute Care w/in this hosp ED Discharge Plan - Patient Disposition Admit/Discharge/Transfer: Acute Care w/in this hosp Condition at Disposition: Unchanged
[2017-10-14 16:23] LABS: CREATININE - SERUM 0.8 mg/dL (0.7-1.3); GFR AFRICAN-AMERICAN > 60.0 ml/min (>90); GFR NON AFRICAN-AMERICAN > 60.0 ml/min
[2017-10-14] MEDS ORDERED: Magnesium Hydroxide (MOM) 30 mL UDC PO PRN (20:12)
[2017-10-15 03:02] LABS: URINE MICROSCOPIC INDICATED? YES; URINE SOURCE RANDOM
[2017-10-15 03:06] LABS: URINE BILIRUBIN NEGATIVE (NEGATIVE); URINE BLOOD LARGE (NEGATIVE); URINE GLUCOSE (UA) NEGATIVE (NEGATIVE); URINE KETONE NEGATIVE (NEGATIVE); URINE LEUKOCYTE ESTERASE LARGE (NEGATIVE); URINE NITRATE POSITIVE (NEGATIVE); URINE PROTEIN TRACE mg/dL (NEGATIVE); URINE UROBILINOGEN 0.2 E.U./dL (0.2 - 1.0)
[2017-10-15 03:11] LABS: URINE CLARITY SLIGHT CLOUDY (CLEAR); URINE COLOR YELLOW
[2017-10-15 03:15] LABS: URINE BACTERIA 1+ /hpf (NONE SEEN); URINE EPITHELIAL CELLS FEW /lpf (FEW); URINE OTHER CRYSTALS F /hpf; URINE WBC 50-100 /hpf (0-5)
[2017-10-15] MEDS ORDERED: Levothyroxine 0.075 Mg Tab PO SCH (07:30)
[2017-10-15] MEDS: Multivitamin w/ Minerals Tab PO SCH (08:45)
[2017-10-15] MEDS: Vitamin B Complex w/Vitamin C Tab PO SCH (08:46)
[2017-10-15] MEDS ORDERED: Promethazine DM 6.25/15mg-5mL 5 ML SYR PO PRN (11:31)
[2017-10-15] MEDS ORDERED: Potassium Chloride 20 mEq ER Tab PO ONE (11:31)
--- NOTE | 2017-10-15 23:33 | Consultation ---
DATE OF CONSULTATION: 10/15/2017 REFERRING MD: Nicolette Vallejo M.D. REASON FOR CONSULT: Medical management, history of type 2 diabetes, hypertension, hypothyroidism, metastatic lung CA. HISTORY OF PRESENT ILLNESS: The patient is a 57-year-old gentleman who was transferred from [facility] for acute psychosis/psych exacerbation, aggressive behavior towards others. The patient has a history of schizophrenia, major depression, metastatic lung cancer, type 2 diabetes, hypertension, hypothyroidism, insomnia, history of previous substance abuse and nicotine dependence. He states that he is also HIV positive with "AIDS", but per medical records, it does not report that diagnoses. He states that he has lung cancer, which has not been treated and he states that he does have a chronic cough, but does not have any major symptomatology at this time such as phlegm production, shortness of breath, chest pain, fever or chills. PAST MEDICAL HISTORY: As noted above. PAST SURGICAL HISTORY: None listed. FAMILY HISTORY: Likely noncontributory to this admission. SOCIAL HISTORY: He admits to smoking about a pack per week. He used to smoke heavier than before. He denies any EtOH or currently any drug abuse. ALLERGIES: NKDA. OUTPATIENT MEDICATIONS: Tylenol 325 q. 4 p.r.n. for fever or pain, amlodipine 10 every day, Dulcolax 10 mg every day, BuSpar 15 mg t.i.d., Klonopin 0.5 b.i.d., clonidine 0.1 q. 6h. p.r.n. for SBP more than 160, Depakote 100 mg b.i.d., hydrochlorothiazide 25 daily, Synthroid 75 mcg daily, lorazepam 0.5 p.r.n. for anxiety, milk of magnesia p.r.n., multivitamins every day, Risperdal 3 mg every day, vitamin B complex with vitamin C once a day and Ambien 5 mg every day. REVIEW OF SYSTEMS: CONSTITUTIONAL: Denies any fever or chills. CARDIAC: No chest pain, palpitations. PULMONARY: Chronic cough, but no phlegm production, no shortness of breath. GASTROINTESTINAL: No bowel habit changes. GENITOURINARY: No bladder habit changes. NEUROLOGIC: No changes in vision, no headaches, no syncope. PHYSICAL EXAMINATION: VITAL SIGNS: Temperature 98.0, pulse 77, respirations 20, blood pressure 119/75, satting 96% on room air. GENERAL: He is a well-developed, well-nourished, disheveled male who does not appear to be in any distress. He is awake, alert and oriented x 3, not in acute distress. HEAD AND NECK: Normocephalic, atraumatic. Pupils reactive to light. Extraocular movements are intact. Oropharynx moist and clear. CARDIOVASCULAR: Regular rate and rhythm without any murmurs. LUNGS: Decreased at the bases. He has got mild expiratory wheezing on deep expiration. No audible rhonchi or crackles noted. ABDOMEN: Soft, supple, nontender, nondistended. Normoactive bowel sounds. LOWER EXTREMITIES: There is no edema. LABORATORY DATA: CBC was essentially within normal limits. Chem-7 shows potassium of 3.1, otherwise within normal limits. AST 92, ALT 120, albumin 3.7. TSH 29.5. UA shows large blood, positive nitrites, large leukocyte esterase, 5-10 rbc's, 50-100 wbc's with 1+ bacteria. Valproic acid 45.6. IMPRESSION: 1. Acute psych exacerbation/psychosis. 2. Urinary tract infection. 3. Hypokalemia. 4. History of hypothyroidism with elevated TSH level. 5. History of metastatic lung cancer. 6. Type 2 diabetes. 7. History of essential hypertension. 8. History of schizophrenia. 9. History of depression. PLAN: The patient has been admitted to [facility] for further management and care. The patient will be kept on his current medications. I will increase the Synthroid to 100 mcg every day. We will place the patient on ciprofloxacin 500 mg b.i.d. x 7 days. We will await urine culture sensitivity. For the cough, he will be ordered Phenergan ALICIA p.r.n. JOB# [id number] [facility]
--- NOTE | 2017-10-16 03:03 | Psychosocial Evaluation ---
DATE OF SERVICE: 10/15/2017 JUSTIFICATION FOR HOSPITALIZATION: The patient brought in due to agitation and psychotic behaviors, talking about HIV/AIDS, rambling. CHIEF COMPLAINT: "I need my Pegasys." HISTORY OF PRESENT ILLNESS: A 57-year-old male, appearing psychotic, delusional, wandering the unit, talking about HIV/AIDS "Pegasys shots," not making any sense, very poor historian, unable to have an intelligible conversation with him. PAST PSYCHIATRIC HISTORY: Unclear, but he appears to be psychotic, possibly schizophrenic. FAMILY HISTORY: Noncontributory. SOCIAL HISTORY: He states he lives in [place]. States he is homeless, not . He states he has 2 kids. Using tobacco. MEDICATIONS: Reviewed including doses and frequencies. MEDICAL HISTORY: Please see full H and P. MENTAL STATUS EXAMINATION: Disheveled, unkempt, poor eye contact, mumbling to self, psychosis noted. Unclear SI or HI, but he was aggressive, appearing paranoid, delusional, poor insight, poor judgment. PROVISIONAL DIAGNOSES: Psychosis, unspecified; likely schizophrenia; also anxiety, unspecified. Under medical, please see full H and P. ESTIMATED LENGTH OF STAY: 7-10 days. ASSESSMENT: The patient requiring inpatient hospitalization, bizarre, delusional, fixated on HIV and AIDS, aggressive behaviors. PLAN: We will restart medications. TREATMENT PLAN: Includes group as well as milieu therapy. CONDITIONS FOR DISCHARGE: Improved mood, improved affect, cessation of any SI, better control of his agitation and psychosis. [facility]# [id number]
[2017-10-16] MEDS: Levothyroxine 0.1 Mg Tab PO SCH (06:41)
[2017-10-16] MEDS: Vitamin B Complex w/Vitamin C Tab PO SCH (08:26)
[2017-10-16] MEDS: Multivitamin w/ Minerals Tab PO SCH (08:45)
[2017-10-16] MEDS ORDERED: Probiotic Screen MC PRN (16:25)
[2017-10-17] MEDS: Levothyroxine 0.1 Mg Tab PO SCH (06:44)
[2017-10-17] MEDS: Vitamin B Complex w/Vitamin C Tab PO SCH (08:24)
[2017-10-17] MEDS: Multivitamin w/ Minerals Tab PO SCH (08:25)
--- NOTE | 2017-10-17 16:09 | Progress Notes ---
DATE: 10/17/2017 COVERING FOR: Dr. Vallejo. SUBJECTIVE: The patient was seen and evaluated. The patient's chart reviewed. Overnight nursing staff reporting the patient presents very disoriented, . The patient is difficult to engage in a linear conversation just from one topic to topic. He continues pacing in and out. He recently risperidone was increased to 6 mg a day, Depakote at 500 mg p.o. b.i.d. After that, the Depakote levels were noted to be in the 40s in the 14 of October. We will continue assessing another level on the to reflect the recent increase of Depakote. MENTAL STATUS EXAMINATION: Disorganized, disheveled, distraught, overwhelmed. ASSESSMENT AND PLAN: The patient is a 57-year-old male with history of schizoaffective bipolar type, who presents very manic, depressed, distraught and disorganized and unable to engage in a linear conversation to provide food, correction, clothing on admission. In the meantime, we will continue increasing clonazepam to 1 mg p.o. b.i.d. p.r.n. We will continue with Depakote levels as they are 500 mg p.o. b.i.d. and check Depakote level tomorrow morning. We will continue with the recent increase of risperidone to 6 mg a day. JOB# [id number]
[2017-10-18] MEDS: Levothyroxine 0.1 Mg Tab PO SCH ×2 (06:37→06:38)
[2017-10-18] MEDS: Vitamin B Complex w/Vitamin C Tab PO SCH (08:41)
[2017-10-18] MEDS: Multivitamin w/ Minerals Tab PO SCH (08:42)
--- NOTE | 2017-10-18 08:45 | Progress Notes ---
DATE: SUBJECTIVE: Chart reviewed and the patient interviewed. Also discussed the patient's condition with the staff and reviewed the records and labs. The patient continued to be rambling and he is still agitated and in irritable mood. The patient also is still confused and he is still unable to follow any of staff directions. The patient also did not sleep much last night. He also is still pacing the unit and intrusive to others. During interview, the patient is rambling and is having disorganized thoughts. He also is still unable to follow any of my directions. The patient also still has difficulty with his mood and is having difficulty with instructions. PLAN: We will increase Klonopin to 1 mg 3 times a day and also will increase trazodone to 100 mg at bedtime. Also, upon admission, Depakote blood level was 45.6. We will increase Depakote to 1000 mg twice a day and will continue to followup closely. JOB# [id number]
[2017-10-19] MEDS: Levothyroxine 0.1 Mg Tab PO SCH (06:46)
[2017-10-19] MEDS: risperiDONE 4 mg Tab PO SCH ×2 (08:30→16:32)
[2017-10-19] MEDS: Multivitamin w/ Minerals Tab PO SCH (08:30)
[2017-10-19] MEDS: Vitamin B Complex w/Vitamin C Tab PO SCH (09:28)
--- NOTE | 2017-10-20 03:20 | Progress Notes ---
DATE: 10/19/2017 SUBJECTIVE: Chart reviewed and the patient interviewed. Also discussed the patient's condition with the staff and reviewed the records and labs. The patient is still manicky and is still easily agitated and is still in irritable mood. The patient also is restless and is still pacing up and down the unit. He also is unable to carry on any coherent conversation and he is still mumbling with words difficult to understand during the interview. He also was suspicious and paranoid. Otherwise, the patient has been compliant with taking his medications and it seems that he is less agitated and slightly easier to redirect him. He also is less intrusive. Also, personal hygiene is fair. ASSESSMENT: The patient is still psychotic and is still manicky and needs close monitoring. TREATMENT PLAN: Continue to monitor his behavior and his condition closely. Also, we will increase Risperdal to 4 mg twice a day. Also, we will work on his irritability and anger and we will continue to follow up. ESTIMATED LENGTH OF STAY: 2-4 days. LABORATORY DATA: Depakote blood level that was done yesterday, came back to be 41.0, which is below therapeutic level. JOB# [id number]
[2017-10-20] MEDS: Levothyroxine 0.1 Mg Tab PO SCH (06:37)
[2017-10-20] MEDS: Multivitamin w/ Minerals Tab PO SCH (10:14)
[2017-10-20] MEDS: risperiDONE 4 mg Tab PO SCH ×2 (10:14→18:00)
[2017-10-20] MEDS: Vitamin B Complex w/Vitamin C Tab PO SCH (10:14)
[2017-10-21] MEDS: Levothyroxine 0.1 Mg Tab PO SCH (06:57)
--- NOTE | 2017-10-21 08:08 | Discharge Summary ---
DATE OF DISCHARGE: 10/21/2017 THE PATIENT'S AGE: 57. SEX: Male. PHYSICIAN: Nicolette Vallejo M.D., M.P.H. FINAL DIAGNOSES: PRIMARY DIAGNOSIS: Schizoaffective disorder, bipolar type with psychotic features. REASON FOR HOSPITALIZATION: The patient was admitted to the hospital because of increased agitation and paranoia and delusional thoughts. HOSPITAL COURSE: The patient continued to be agitated and in irritable mood. The patient also was restless. The patient also was given BuSpar at a dose of 50 mg 4 times a day and Klonopin 1 mg 3 times a day. Also, continue to take Depakote and dose adjusted to 1000 mg twice a day. Gradually, the patient's affect was brighter. The patient also was easier to redirect him. Also, he is compliant with taking Risperdal that the dose adjusted to 4 mg twice a day. The patient was still slightly delusional and disorganized thoughts, but that is his baseline. The patient had no major medical issues while in the hospital. Depakote blood level on 10/18/2017 was 41, which is below therapeutic level, but we will continue to monitor the dose as an outpatient. AFTER DISCHARGE PLANS: The patient discharged from the hospital with plan to follow him up there. EXPECTED OUTCOME AFTER DISCHARGE: Fair if the patient continues with his outpatient treatment and followup. [facility]# [id number]
[2017-10-21] MEDS: risperiDONE 4 mg Tab PO SCH (08:53)
[2017-10-21] MEDS: Multivitamin w/ Minerals Tab PO SCH (08:53)
[2017-10-21] MEDS: Vitamin B Complex w/Vitamin C Tab PO SCH (08:54)
--- NOTE | 2017-10-21 09:00 | Progress Notes ---
DATE: 10/20/2017 SUBJECTIVE: Chart reviewed and the patient interviewed. Also discussed the patient's condition with the staff and reviewed records and labs. The patient is still anxious and manicky. The patient also is still restless. The patient also is hyperverbal and he is still pacing up and down the unit. Otherwise, the patient is compliant with taking his medications with no side effects of medications. ASSESSMENT: The patient showed some improvement and seems to be slightly less manic and less irritable. TREATMENT PLAN: We will continue to monitor his behavior and his condition and continue to adjust psychotropic medications. Also, working on discharge plans. JOB# [id number]
== END 2017-10-21 13:15 | disposition home or self-care (01) | DRG 885 ==
LOC: ER 14:36 → GERO 17:30
PROVIDERS: ADMIT Psychiatry & Neurology Psychiatry; ATTEND Psychiatry & Neurology Psychiatry
DX: F25.0 Schizoaffective disorder, bipolar type (principal); E11.9 Type 2 diabetes mellitus without complications; E03.9 Hypothyroidism, unspecified; N39.0 Urinary tract infection, site not specified; F41.9 Anxiety disorder, unspecified; E87.6 Hypokalemia; I10 Essential (primary) hypertension; F32.9 Major depressive disorder, single episode, unspecified; Z85.118 Personal history of other malignant neoplasm of bronchus and lung; Z87.891 Personal history of nicotine dependence; Z79.899 Other long term (current) drug therapy
CPT/HCPCS: 36415-UA; 80053-TC; 80164-TC; 81001-TC; 84443-TC; 85025-TC; 87086-90; G0410; Z7610

== ENCOUNTER 2019-01-30 09:20 | Inpatient (IN) | payer MEDICARE, OTHER ==
[2019-01-30 10:19] VITALS: BP 147/98
[2019-01-30] MEDS ORDERED: Maalox 30 mL Cup PO PRN (10:20)
[2019-01-30] MEDS ORDERED: Magnesium Hydroxide (MOM) 30 mL UDC PO PRN (10:20)
--- NOTE | 2019-01-30 11:22 | Diagnostic Imaging Report ---
CHEST X-RAY: AP view INDICATION: Pain COMPARISON: Chest x-ray 08/15/[address] on 08/16/2017 FINDINGS: Chronic lung changes are seen with focal right upper lobe infiltrate which is probably chronic when compared to previous CT examination on 08/16/2017. There is nodularity of the left lung takes measuring 1 cm adjacent to the left second rib. This corresponds to nodule seen on previous CT examination. No pleural effusions. Heart size is normal. Degenerative changes of the spine are noted. IMPRESSION: Biapical parenchymal disease which may be chronic when compared previous CT examination on 08/16/2017. Biapical nodularity is noted including 1 cm left apical nodule. Findings are indeterminate and may be due to infectious process or neoplastic process when compared to previous CT chest exam. Recommend clinical correlation and short-term follow-up including a follow-up surveillance CT chest exam.
[2019-01-30 11:37] LABS: % BASOPHILS 1.1 % (0.0-2.0); % EOSINOPHILS 4.8 % (0.0-5.0); % LYMPHOCYTES 24.8 % (20.0-50.0); % MONOCYTES 6.7 % (2.0-10.0); % NEUTROPHILS 62.6 % (40.0-80.0); BASOPHILE ABSOLUTE 0.1 Th/cumm (0-0.2); EOSINOPHILE ABSOLUTE 0.4 Th/cmm (0.1-0.4); HEMATOCRIT 39.6 % (41.0-60); HEMOGLOBIN 13.1 gm/dL (12-16); MEAN CORPUSCULAR HEMOGLOBIN 29.7 pg (26.0-30.0); MEAN PLATELET VOLUME 8.3 fl; MONOCYTE ABSOLUTE 0.5 Th/cmm (0.3-1.0); NEUTROPHILE ABSOLUTE 5.2 Th/cmm (1.8-8.0); PLATELET COUNT 285 Th/cmm (150-400); RED BLOOD COUNT 4.41 Mil/cmm (4.30-5.70); RED CELL DISTRIBUTION WIDTH 13.6 % (11.5-20.0); WHITE BLOOD COUNT 8.2 Th/cmm (4.8-10.8)
[2019-01-30 12:03] LABS: ALB/GLOB RATIO 1.1 (1.0-1.8); ALBUMIN 3.8 gm/dL (4.2-5.5); ALKALINE PHOSPHATASE 69 U/L (34-104); BILIRUBIN,TOTAL 0.5 mg/dL (0.3-1.0); BUN - UREA NITROGEN 16 mg/dL (7-25); CALCIUM SERUM 9.5 mg/dL (8.6-10.3); CARBON DIOXIDE 26.8 mEq/L (21.0-31.0); CHLORIDE 107 mEq/L (98-107); CHOLESTEROL 103 mg/dL (<200); CREATININE - SERUM 0.9 mg/dL (0.7-1.3); GFR AFRICAN-AMERICAN > 60.0 ml/min (>90); GFR NON AFRICAN-AMERICAN > 60.0 ml/min; GLUCOSE 103 mg/dL (70-105); HDL -HIGH DENSITY LIPOPROTEIN 39 mg/dL (23-92); POTASSIUM SERUM 3.8 mEq/L (3.5-5.1); SGOT 39 U/L (13-39); SGPT/ALT 61 U/L (7-52); SODIUM SERUM 142 mEq/L (136-145); TOTAL PROTEIN,SERUM 7.3 gm/dL (6.0-8.3); TRIGLYCERIDES 96 mg/dL (<150)
--- NOTE | 2019-01-30 12:05 | History & Physical ---
ADMIT DATE: 01/30/2019 IDENTIFYING INFORMATION: The patient is a 58-year-old male. CHIEF COMPLAINT: The patient was rambling. HISTORY OF PRESENT ILLNESS: The patient was transferred from a nursing facility because of agitation and psychosis, rambling to himself, unable to give information, the patient was psychotic, when I tried to talk to him, he was unable to participate in meaningful conversation. PAST PSYCHIATRIC HISTORY: The patient is with prior psychiatric treatment. He was last here back in 09/2017. The patient is unable to give much information. MEDICAL HISTORY: Please refer to the medical doctor. FAMILY AND SOCIAL HISTORY: The patient came from nursing facility. He is apparently could not work, is and has 3 kids. He smokes, but denies substance abuse according to the record, the patient is a poor historian. MENTAL STATUS EXAMINATION: The patient is appropriately dressed, not well groomed. He was alert, talking to himself, unable to participate in meaningful conversation, unable to get his attention. Unable to test his memory. He was psychotic, unable to make safe plan for self-care, unpredictable, impulsive, and needing redirection. Unable to test his memory. When asked about suicide and homicide, he denies. Insight and judgment is impaired. IMPRESSION: Psychosis, not otherwise specified, rule out schizophrenia versus schizoaffective disorder. PLAN: The patient will be started back on his medication Depakote. We will do group therapy, milieu therapy, and individual therapy. ESTIMATED LENGTH OF STAY: 3-7 days. DISCHARGE CRITERIA: Decreasing psychosis and agitation. After discharge, outpatient treatment. [facility]# [id number]
[2019-01-30] MEDS ORDERED: Promethazine DM 6.25/15mg-5mL 5 ML SYR PO PRN (13:12)
[2019-01-30] MEDS ORDERED: risperiDONE 4 mg Tab PO ONE (16:33)
[2019-01-30] MEDS: risperiDONE 4 mg Tab PO SCH (17:41)
--- NOTE | 2019-01-30 23:41 | Consultation ---
DATE OF CONSULTATION: INTERNAL MEDICINE CONSULTATION REFERRING PHYSICIAN: Dr. Vallejo. REASON FOR CONSULT: Medical management. HISTORY OF PRESENT ILLNESS: The patient is a 58-year-old male who was transferred from [facility] for psych decompensation. He does have a history of schizophrenia/schizoaffective, depression, and bipolar as well as hypothyroidism, pancreatic insufficiency, essential hypertension. He is a poor historian currently sitting up in a chair, not able to provide any significant medical history. Apparently, he was admitted to the previous mentioned facility, but he could not tell me for what reason. Per medical records, he was apparently admitted for acute schizophrenia, now has been stabilized and transferred to this facility for further management and care. PAST MEDICAL HISTORY: As noted above. PAST SURGICAL HISTORY: None. FAMILY HISTORY: Unknown, but likely noncontributory to this admission. SOCIAL HISTORY: He does smoke cigars. He could not quantify. He currently denies any alcohol or illicit drug usage. ALLERGIES: NKDA. TRANSFER MEDICATIONS: Tylenol 650 q.4h. p.r.n. for fever or pain, amlodipine 10 every day, Dulcolax suppository every day p.r.n. for severe constipation, BuSpar 15 mg t.i.d., Cipro 500 mg b.i.d., clonazepam 0.5 mg b.i.d., clonidine 0.1 q.6 hours p.r.n. for SBP greater than 160, Depakote 500 mg b.i.d., hydrochlorothiazide 25 every day, levothyroxine 100 mcg every day, lorazepam 0.5 q.4 hours p.r.n. for anxiety, multivitamins every day, Phenergan DM 10 mL p.r.n. for cough, trazodone 100 mg at bedtime, vitamin B complex with vitamin C every day. REVIEW OF SYSTEMS: A good review of systems was unable to be completed given the patient's condition, but generally, he denies any fever, chills, any recent weight loss. CARDIOVASCULAR: No chest pain or palpitations. PULMONARY: He has somewhat of a chronic cough, but denies any phlegm production. GASTROINTESTINAL: No bowel habit changes. GENITOURINARY: No bladder habit changes. NEUROLOGIC: No changes in vision, no headaches, denies any syncope. PHYSICAL EXAMINATION: VITAL SIGNS: Temperature 97.7, pulse 92, respirations 20, and blood pressure 150/99. GENERAL: He is a well-developed, well-nourished male, awake, somewhat slow to respond and tangential. HEAD AND NECK: Normocephalic, atraumatic. Pupils are reactive to light. Extraocular movements are intact. Oropharynx moist and clear. NECK: There is no JVD or LAD. CARDIAC: Regular rate and rhythm without any murmurs. LUNGS: Decreased at the bases, otherwise clear to auscultation. ABDOMEN: Soft, supple, nontender, nondistended, normoactive bowel sounds. EXTREMITIES: Lower extremity, there is no pedal edema. NEUROLOGIC: Difficult to assess, but he appears to be intact. LABORATORY DATA: None current. ASSESSMENT: 1. Psychiatric decompensation. 2. History of schizophrenia/schizoaffective. 3. History of bipolar disease. 4. History of hypothyroidism. 5. History of essential hypertension. 6. Nicotine dependence. PLAN: The patient has been admitted to [facility] for management and care. The patient will be kept on his current meds as scheduled. I will ask for basic labs to be done tomorrow morning including a CBC, CMP, UA, TSH, and a lipid panel. JOB# [id number]
[2019-01-31] MEDS: Levothyroxine 0.1 Mg Tab PO SCH (06:48)
[2019-01-31] MEDS: Vitamin B Complex w/Vitamin C Tab PO SCH (08:13)
[2019-01-31] MEDS: Multivitamin Tab PO SCH (08:14)
[2019-01-31] MEDS: risperiDONE 4 mg Tab PO SCH (08:14)
--- NOTE | 2019-01-31 09:45 | Internal Medicine Prog Note ---
Internal Medicine Subjective - Subjective Service Date: 01/31/19 (COMFORTABLE, NO ACUTE EVENTS NOTED) Patient seen and examined:: without staff Patient is:: awake Per staff patient has:: no adverse event Internal Medicine Objective - Results Result Diagrams: 01/30/19 11:25 01/30/19 11:25 Recent Labs: Laboratory Last Values WBC 8.2 Th/cmm (4.8-10.8) 01/30/19 11:25 RBC 4.41 Mil/cmm (4.30-5.70) 01/30/19 11:25 Hgb 13.1 gm/dL (12-16) 01/30/19 11:25 Hct 39.6 % (41.0-60) L 01/30/19 11:25 MCV 90.0 fl (80-99) 01/30/19 11:25 MCH 29.7 pg (26.0-30.0) 01/30/19 11:25 MCHC Differential 33.0 pg (28.0-36.0) 01/30/19 11:25 RDW 13.6 % (11.5-20.0) 01/30/19 11:25 Plt Count 285 Th/cmm (150-400) 01/30/19 11:25 MPV 8.3 fl 01/30/19 11:25 Neutrophils % 62.6 % (40.0-80.0) 01/30/19 11:25 Lymphocytes % 24.8 % (20.0-50.0) 01/30/19 11:25 Monocytes % 6.7 % (2.0-10.0) 01/30/19 11:25 Eosinophils % 4.8 % (0.0-5.0) 01/30/19 11:25 Basophils % 1.1 % (0.0-2.0) 01/30/19 11:25 Sodium 142 mEq/L (136-145) 01/30/19 11:25 Potassium 3.8 mEq/L (3.5-5.1) 01/30/19 11:25 Chloride 107 mEq/L (98-107) 01/30/19 11:25 Carbon Dioxide 26.8 mEq/L (21.0-31.0) 01/30/19 11:25 Anion Gap 12.0 (7.0-16.0) 01/30/19 11:25 BUN 16 mg/dL (7-25) 01/30/19 11:25 Creatinine 0.9 mg/dL (0.7-1.3) 01/30/19 11:25 Est GFR ( Amer) > 60.0 ml/min (>90) 01/30/19 11:25 Est GFR (Non-Af Amer) > 60.0 ml/min 01/30/19 11:25 BUN/Creatinine Ratio 17.8 01/30/19 11:25 Glucose 103 mg/dL (70-105) 01/30/19 11:25 Calcium 9.5 mg/dL (8.6-10.3) 01/30/19 11:25 Total Bilirubin 0.5 mg/dL (0.3-1.0) 01/30/19 11:25 AST 39 U/L (13-39) 01/30/19 11:25 ALT 61 U/L (7-52) H 01/30/19 11:25 Alkaline Phosphatase 69 U/L (34-104) 01/30/19 11:25 Total Protein 7.3 gm/dL (6.0-8.3) 01/30/19 11:25 Albumin 3.8 gm/dL (4.2-5.5) L 01/30/19 11:25 Globulin 3.5 gm/dL 01/30/19 11:25 Albumin/Globulin Ratio 1.1 (1.0-1.8) 01/30/19 11:25 Triglycerides 96 mg/dL (<150) 01/30/19 11:25 Cholesterol 103 mg/dL (<200) 01/30/19 11:25 LDL Cholesterol Direct 55 mg/dL (75-193) L 01/30/19 11:25 HDL Cholesterol 39 mg/dL (23-92) 01/30/19 11:25 - Physical Exam Vitals and I&O: Vital Signs Temp 98.0 F 01/31/19 06:06 Pulse 82 01/31/19 08:15 Resp 20 01/31/19 06:06 BP 141/71 01/31/19 08:15 Pulse Ox 96 01/31/19 06:06 Intake & Output 01/30/19 01/31/19 01/31/19 18:59 06:59 18:59 Intake Total 240 Balance 240 Intake: Oral 240 Other: # Voids 2 # Bowel Movements 0 Stool Characteristics Formed Weight Source Estimated Active Medications: Current Medications Acetaminophen (Tylenol) 650 mg PO Q4HR PRN PRN Reason: Mild Pain / Temp above 100 Stop: 03/31/19 10:19 Last Admin: 01/30/19 17:40 Dose: 650 mg Al Hydrox/Mg Hydrox/Simethicone (Maalox) 30 ml PO Q4HR PRN PRN Reason: GI DISTRESS Stop: 03/31/19 10:19 Amlodipine Besylate (Norvasc) 10 mg PO DAILY [facility] Stop: 04/01/19 08:59 Last Admin: 01/31/19 08:15 Dose: 10 mg Ciprofloxacin (Cipro) 500 mg PO BID [facility] Stop: 03/31/19 16:59 Last Admin: 01/31/19 08:13 Dose: 500 mg Divalproex Sodium (Depakote Dr) 500 mg PO BID [facility]; Protocol Stop: 03/31/19 23:29 Last Admin: 01/31/19 08:14 Dose: 500 mg Hydrochlorothiazide (Hctz) 25 mg PO DAILY [facility] Stop: 04/01/19 08:59 Last Admin: 01/31/19 08:14 Dose: 25 mg Levothyroxine Sodium (Synthroid) 0.1 mg PO QDAC [facility] Stop: 04/01/19 07:29 Last Admin: 01/31/19 06:48 Dose: 0.1 mg Lorazepam (Ativan) 0.5 mg PO Q4HR PRN; Protocol PRN Reason: Anxiety Stop: 03/01/19 10:19 Magnesium Hydroxide (Milk Of Magnesia) 30 ml PO HS PRN PRN Reason: Constipation Multivitamins/Vitamin C (Theragran) 1 tab PO DAILY [facility] Stop: 04/01/19 08:59 Last Admin: 01/31/19 08:14 Dose: 1 tab Promethazine HCl/Dextromethorphan (Phenergan Dm 6.25/15mg-5 Ml) 10 ml PO Q4HR PRN PRN Reason: Cough Stop: 03/31/19 13:11 Risperidone (Risperdal) 4 mg PO BID [facility]; Protocol Stop: 03/31/19 16:59 Last Admin: 01/31/19 08:14 Dose: 4 mg Trazodone HCl (Desyrel) 100 mg PO HS [facility]; Protocol Stop: 04/01/19 20:59 Vitamin B Complex/Vit C/Folic Acid (Vitamin B Complex W/Vitamin C) 1 tab PO DAILY [facility] Stop: 04/01/19 08:59 Last Admin: 01/31/19 08:13 Dose: 1 tab Zolpidem Tartrate (Ambien) 5 mg PO HS PRN PRN Reason: Insomnia Stop: 03/31/19 10:19 Last Admin: 01/30/19 21:06 Dose: 5 mg General: alert HEENT: NC/AT, PERRLA, EOMI Neck: Supple, No JVD, No thyromegaly, No LAD Lungs: CTAB Cardiovascular: RRR, Normal S1, Normal S2 Extremities: clear Neurological: no change, alert - Procedures Procedures: Procedures Procedure Code Date INDIVID PSYCHOTHERAP NEC 94.39 09/27/08 OTHER GROUP THERAPY 94.44 10/14/08 RECREATIONAL THERAPY 93.81 10/14/08 CXR: BIAPICAL PARENCHYMAL DISEASE WITH NODULARITY (1CM) ON THE LEFT APEX. Internal Medicine Assmt/Plan - Assessment Assessment: ACUTE PSYCH DECOMPENSATION HISTORY OF SCHIZOPHRENIA/PSYCHOAFFECTIVE D/O HISTORY OF HYPOTHYROIDISM ESSENTIAL/SYSTEMIC HTN NICOTINE DEPENDENCE POSSIBLE BRONCHITIS LEFT APEX NODULE--FOLLOW CT SCAN OUTPT - Plan Plan: CONT WITH CURRENT IN-PATIENT PSYCH SUPPORTIVE CARE AND MGT CONT WITH AMLODIPINE 10MG QDAY, HCTZ 25MG QDAY/CLONIDINE PRN CONT WITH LEVOTHYROXINE 100MCG QDAY CONT WITH CIPRO 250MG BID/PHENERGAN DM PRN
--- NOTE | 2019-02-01 04:52 | Progress Notes ---
DATE: 01/31/2019 SUBJECTIVE: Chart reviewed and the patient interviewed. Also, discussed the patient's condition with the staff and reviewed records and labs. The patient continued to be exhibiting bizarre behavior and the patient is still manicky and restless. The patient also is still actively responding to stimuli and talking to himself. Also, is still intrusive to others and hyperverbal and needs lots of redirections. On the other hand, the patient is compliant with taking his medications with no side effects of medications and also personal hygiene showed some improvement. ASSESSMENT: The patient is still manicky and still psychotic. TREATMENT PLAN: Continue to monitor his behavior and his condition closely. Also, continue Depakote 500 mg twice a day and Risperdal 4 mg twice a day. Also, we will get Depakote blood level. Also, continue to work on his irritability and agitation and continue to follow up. JOB# [id number]
[2019-02-01] MEDS: Levothyroxine 0.1 Mg Tab PO SCH (06:37)
[2019-02-01] MEDS: Vitamin B Complex w/Vitamin C Tab PO SCH (08:25)
[2019-02-01] MEDS: Multivitamin Tab PO SCH (08:25)
[2019-02-01] MEDS: risperiDONE 4 mg Tab PO SCH ×2 (08:26→17:07)
--- NOTE | 2019-02-01 14:28 | Internal Medicine Prog Note ---
Internal Medicine Subjective - Subjective Service Date: 02/01/19 (NO EVENTS NOTED) Patient seen and examined:: without staff Patient is:: awake Per staff patient has:: no adverse event Internal Medicine Objective - Results Result Diagrams: 01/30/19 11:25 01/30/19 11:25 Recent Labs: Laboratory Last Values WBC 8.2 Th/cmm (4.8-10.8) 01/30/19 11:25 RBC 4.41 Mil/cmm (4.30-5.70) 01/30/19 11:25 Hgb 13.1 gm/dL (12-16) 01/30/19 11:25 Hct 39.6 % (41.0-60) L 01/30/19 11:25 MCV 90.0 fl (80-99) 01/30/19 11:25 MCH 29.7 pg (26.0-30.0) 01/30/19 11:25 MCHC Differential 33.0 pg (28.0-36.0) 01/30/19 11:25 RDW 13.6 % (11.5-20.0) 01/30/19 11:25 Plt Count 285 Th/cmm (150-400) 01/30/19 11:25 MPV 8.3 fl 01/30/19 11:25 Neutrophils % 62.6 % (40.0-80.0) 01/30/19 11:25 Lymphocytes % 24.8 % (20.0-50.0) 01/30/19 11:25 Monocytes % 6.7 % (2.0-10.0) 01/30/19 11:25 Eosinophils % 4.8 % (0.0-5.0) 01/30/19 11:25 Basophils % 1.1 % (0.0-2.0) 01/30/19 11:25 Sodium 142 mEq/L (136-145) 01/30/19 11:25 Potassium 3.8 mEq/L (3.5-5.1) 01/30/19 11:25 Chloride 107 mEq/L (98-107) 01/30/19 11:25 Carbon Dioxide 26.8 mEq/L (21.0-31.0) 01/30/19 11:25 Anion Gap 12.0 (7.0-16.0) 01/30/19 11:25 BUN 16 mg/dL (7-25) 01/30/19 11:25 Creatinine 0.9 mg/dL (0.7-1.3) 01/30/19 11:25 Est GFR ( Amer) > 60.0 ml/min (>90) 01/30/19 11:25 Est GFR (Non-Af Amer) > 60.0 ml/min 01/30/19 11:25 BUN/Creatinine Ratio 17.8 01/30/19 11:25 Glucose 103 mg/dL (70-105) 01/30/19 11:25 Calcium 9.5 mg/dL (8.6-10.3) 01/30/19 11:25 Total Bilirubin 0.5 mg/dL (0.3-1.0) 01/30/19 11:25 AST 39 U/L (13-39) 01/30/19 11:25 ALT 61 U/L (7-52) H 01/30/19 11:25 Alkaline Phosphatase 69 U/L (34-104) 01/30/19 11:25 Total Protein 7.3 gm/dL (6.0-8.3) 01/30/19 11:25 Albumin 3.8 gm/dL (4.2-5.5) L 01/30/19 11:25 Globulin 3.5 gm/dL 01/30/19 11:25 Albumin/Globulin Ratio 1.1 (1.0-1.8) 01/30/19 11:25 Triglycerides 96 mg/dL (<150) 01/30/19 11:25 Cholesterol 103 mg/dL (<200) 01/30/19 11:25 LDL Cholesterol Direct 55 mg/dL (75-193) L 01/30/19 11:25 HDL Cholesterol 39 mg/dL (23-92) 01/30/19 11:25 - Physical Exam Vitals and I&O: Vital Signs Temp 97.6 F 02/01/19 06:21 Pulse 66 02/01/19 08:25 Resp 20 02/01/19 08:00 BP 146/86 02/01/19 08:26 Pulse Ox 98 02/01/19 06:21 Intake & Output 01/31/19 02/01/19 02/01/19 18:59 06:59 18:59 Intake Total 1800 300 Balance 1800 300 Intake: Oral 1800 300 Other: # Voids 4 1 # Bowel Movements 0 Active Medications: Current Medications Acetaminophen (Tylenol) 650 mg PO Q4HR PRN PRN Reason: Mild Pain / Temp above 100 Stop: 03/31/19 10:19 Last Admin: 01/30/19 17:40 Dose: 650 mg Al Hydrox/Mg Hydrox/Simethicone (Maalox) 30 ml PO Q4HR PRN PRN Reason: GI DISTRESS Stop: 03/31/19 10:19 Amlodipine Besylate (Norvasc) 10 mg PO DAILY [facility] Stop: 04/01/19 08:59 Last Admin: 02/01/19 08:25 Dose: 10 mg Ciprofloxacin (Cipro) 500 mg PO BID [facility] Stop: 03/31/19 16:59 Last Admin: 02/01/19 08:24 Dose: 500 mg Divalproex Sodium (Depakote Dr) 500 mg PO BID [facility]; Protocol Stop: 03/31/19 23:29 Last Admin: 02/01/19 08:24 Dose: 500 mg Hydrochlorothiazide (Hctz) 25 mg PO DAILY [facility] Stop: 04/01/19 08:59 Last Admin: 02/01/19 08:26 Dose: 25 mg Levothyroxine Sodium (Synthroid) 0.1 mg PO QDAC [facility] Stop: 04/01/19 07:29 Last Admin: 02/01/19 06:37 Dose: 0.1 mg [place] Carbonate (Eskalith) 300 mg PO BID [facility]; Protocol Stop: 04/02/19 16:59 Lorazepam (Ativan) 0.5 mg PO Q4HR PRN; Protocol PRN Reason: Anxiety Stop: 03/01/19 10:19 Magnesium Hydroxide (Milk Of Magnesia) 30 ml PO HS PRN PRN Reason: Constipation Multivitamins/Vitamin C (Theragran) 1 tab PO DAILY [facility] Stop: 04/01/19 08:59 Last Admin: 02/01/19 08:25 Dose: 1 tab Promethazine HCl/Dextromethorphan (Phenergan Dm 6.25/15mg-5 Ml) 10 ml PO Q4HR PRN PRN Reason: Cough Stop: 03/31/19 13:11 Risperidone (Risperdal) 4 mg PO BID [facility]; Protocol Stop: 03/31/19 16:59 Last Admin: 02/01/19 08:26 Dose: 4 mg Trazodone HCl (Desyrel) 100 mg PO HS [facility]; Protocol Stop: 04/01/19 20:59 Last Admin: 01/31/19 20:41 Dose: 100 mg Vitamin B Complex/Vit C/Folic Acid (Vitamin B Complex W/Vitamin C) 1 tab PO DAILY [facility] Stop: 04/01/19 08:59 Last Admin: 02/01/19 08:25 Dose: 1 tab Zolpidem Tartrate (Ambien) 5 mg PO HS PRN PRN Reason: Insomnia Stop: 03/31/19 10:19 Last Admin: 01/31/19 22:30 Dose: 5 mg General: alert HEENT: NC/AT, PERRLA, EOMI Neck: Supple, No JVD, No thyromegaly, No LAD Lungs: CTAB Cardiovascular: RRR, Normal S1, Normal S2 Extremities: clear Neurological: no change, alert - Procedures Procedures: Procedures Procedure Code Date INDIVID PSYCHOTHERAP NEC 94.39 09/27/08 OTHER GROUP THERAPY 94.44 10/14/08 RECREATIONAL THERAPY 93.81 10/14/08 Internal Medicine Assmt/Plan - Assessment Assessment: ACUTE PSYCH DECOMPENSATION HISTORY OF SCHIZOPHRENIA/PSYCHOAFFECTIVE D/O HISTORY OF HYPOTHYROIDISM ESSENTIAL/SYSTEMIC HTN NICOTINE DEPENDENCE POSSIBLE BRONCHITIS LEFT APEX NODULE--FOLLOW CT SCAN OUTPT - Plan Plan: CONT WITH CURRENT IN-PATIENT PSYCH SUPPORTIVE CARE AND MGT CONT WITH AMLODIPINE 10MG QDAY, HCTZ 25MG QDAY/CLONIDINE PRN CONT WITH LEVOTHYROXINE 100MCG QDAY CONT WITH CIPRO 250MG BID/PHENERGAN DM PRN
--- NOTE | 2019-02-01 21:52 | Progress Notes ---
DATE: 02/01/2019 SUBJECTIVE: Chart reviewed and the patient interviewed. Also discussed the patient's condition with the staff and reviewed records and labs. The patient's affect is flat and the patient still seems to be confused. The patient also is still delusional. Also, still has mood swings and labile affect. On the other hand, the patient seems to be slightly calmer and no outbursts yesterday. The patient also has been compliant with taking his medications with no side effects. ASSESSMENT: The patient is still psychotic and exhibiting manic behavior. TREATMENT PLAN: Continue to monitor his behavior and his condition closely. Also, continue Risperdal 4 mg twice a day and Depakote 500 mg twice a day. Also, we will get Depakote blood level today and continue to follow up and work on behavioral modification. JOB# [id number]
[2019-02-02] MEDS: Levothyroxine 0.1 Mg Tab PO SCH (06:30)
[2019-02-02] MEDS: risperiDONE 4 mg Tab PO SCH ×3 (08:12→17:00)
[2019-02-02] MEDS: Multivitamin Tab PO SCH (08:12)
[2019-02-02] MEDS: Vitamin B Complex w/Vitamin C Tab PO SCH (08:13)
--- NOTE | 2019-02-02 22:13 | Internal Medicine Prog Note ---
Internal Medicine Subjective - Subjective Service Date: 02/02/19 (no acute changes or events) Patient is:: awake Per staff patient has:: no adverse event Internal Medicine Objective - Results Result Diagrams: 01/30/19 11:25 01/30/19 11:25 Recent Labs: Laboratory Last Values WBC 8.2 Th/cmm (4.8-10.8) 01/30/19 11:25 RBC 4.41 Mil/cmm (4.30-5.70) 01/30/19 11:25 Hgb 13.1 gm/dL (12-16) 01/30/19 11:25 Hct 39.6 % (41.0-60) L 01/30/19 11:25 MCV 90.0 fl (80-99) 01/30/19 11:25 MCH 29.7 pg (26.0-30.0) 01/30/19 11:25 MCHC Differential 33.0 pg (28.0-36.0) 01/30/19 11:25 RDW 13.6 % (11.5-20.0) 01/30/19 11:25 Plt Count 285 Th/cmm (150-400) 01/30/19 11:25 MPV 8.3 fl 01/30/19 11:25 Neutrophils % 62.6 % (40.0-80.0) 01/30/19 11:25 Lymphocytes % 24.8 % (20.0-50.0) 01/30/19 11:25 Monocytes % 6.7 % (2.0-10.0) 01/30/19 11:25 Eosinophils % 4.8 % (0.0-5.0) 01/30/19 11:25 Basophils % 1.1 % (0.0-2.0) 01/30/19 11:25 Sodium 142 mEq/L (136-145) 01/30/19 11:25 Potassium 3.8 mEq/L (3.5-5.1) 01/30/19 11:25 Chloride 107 mEq/L (98-107) 01/30/19 11:25 Carbon Dioxide 26.8 mEq/L (21.0-31.0) 01/30/19 11:25 Anion Gap 12.0 (7.0-16.0) 01/30/19 11:25 BUN 16 mg/dL (7-25) 01/30/19 11:25 Creatinine 0.9 mg/dL (0.7-1.3) 01/30/19 11:25 Est GFR ( Amer) > 60.0 ml/min (>90) 01/30/19 11:25 Est GFR (Non-Af Amer) > 60.0 ml/min 01/30/19 11:25 BUN/Creatinine Ratio 17.8 01/30/19 11:25 Glucose 103 mg/dL (70-105) 01/30/19 11:25 Calcium 9.5 mg/dL (8.6-10.3) 01/30/19 11:25 Total Bilirubin 0.5 mg/dL (0.3-1.0) 01/30/19 11:25 AST 39 U/L (13-39) 01/30/19 11:25 ALT 61 U/L (7-52) H 01/30/19 11:25 Alkaline Phosphatase 69 U/L (34-104) 01/30/19 11:25 Total Protein 7.3 gm/dL (6.0-8.3) 01/30/19 11:25 Albumin 3.8 gm/dL (4.2-5.5) L 01/30/19 11:25 Globulin 3.5 gm/dL 01/30/19 11:25 Albumin/Globulin Ratio 1.1 (1.0-1.8) 01/30/19 11:25 Triglycerides 96 mg/dL (<150) 01/30/19 11:25 Cholesterol 103 mg/dL (<200) 01/30/19 11:25 LDL Cholesterol Direct 55 mg/dL (75-193) L 01/30/19 11:25 HDL Cholesterol 39 mg/dL (23-92) 01/30/19 11:25 Valproic Acid 30.0 ug/mL (50.0-100.0) L 02/01/19 11:45 RPR NONREACTIVE (NONREACTIVE) 01/30/19 11:25 - Physical Exam Vitals and I&O: Vital Signs Temp 98.7 F 02/02/19 20:26 Pulse 90 02/02/19 20:26 Resp 20 02/02/19 20:26 BP 116/71 02/02/19 20:26 Pulse Ox 97 04/12/19 20:26 Intake & Output 02/02/19 02/02/19 02/03/19 06:59 18:59 06:59 Intake Total 520 1000 240 Balance 520 1000 240 Intake: Oral 520 1000 240 Other: # Voids 1 4 2 # Bowel Movements 1 Active Medications: Current Medications Acetaminophen (Tylenol) 650 mg PO Q4HR PRN PRN Reason: Mild Pain / Temp above 100 Stop: 03/31/19 10:19 Last Admin: 01/30/19 17:40 Dose: 650 mg Al Hydrox/Mg Hydrox/Simethicone (Maalox) 30 ml PO Q4HR PRN PRN Reason: GI DISTRESS Stop: 03/31/19 10:19 Amlodipine Besylate (Norvasc) 10 mg PO DAILY [facility] Stop: 04/01/19 08:59 Last Admin: 02/02/19 08:14 Dose: 10 mg Ciprofloxacin (Cipro) 500 mg PO BID [facility] Stop: 03/31/19 16:59 Last Admin: 02/02/19 16:59 Dose: 500 mg Divalproex Sodium (Depakote Dr) 500 mg PO BID [facility]; Protocol Stop: 03/31/19 23:29 Last Admin: 02/02/19 16:59 Dose: 500 mg Hydrochlorothiazide (Hctz) 25 mg PO DAILY [facility] Stop: 04/01/19 08:59 Last Admin: 02/02/19 08:13 Dose: 25 mg Levothyroxine Sodium (Synthroid) 0.1 mg PO QDAC [facility] Stop: 04/01/19 07:29 Last Admin: 02/02/19 06:30 Dose: 0.1 mg [place] Carbonate (Eskalith) 300 mg PO BID [facility]; Protocol Stop: 04/02/19 16:59 Last Admin: 02/02/19 16:59 Dose: 300 mg Lorazepam (Ativan) 0.5 mg PO Q4HR PRN; Protocol PRN Reason: Anxiety Stop: 03/01/19 10:19 Magnesium Hydroxide (Milk Of Magnesia) 30 ml PO HS PRN PRN Reason: Constipation Multivitamins/Vitamin C (Theragran) 1 tab PO DAILY [facility] Stop: 04/01/19 08:59 Last Admin: 02/02/19 08:12 Dose: 1 tab Promethazine HCl/Dextromethorphan (Phenergan Dm 6.25/15mg-5 Ml) 10 ml PO Q4HR PRN PRN Reason: Cough Stop: 03/31/19 13:11 Risperidone (Risperdal) 4 mg PO BID [facility]; Protocol Stop: 03/31/19 16:59 Last Admin: 02/02/19 17:00 Dose: 4 mg Trazodone HCl (Desyrel) 100 mg PO HS [facility]; Protocol Stop: 04/01/19 20:59 Last Admin: 02/02/19 20:35 Dose: 100 mg Vitamin B Complex/Vit C/Folic Acid (Vitamin B Complex W/Vitamin C) 1 tab PO DAILY [facility] Stop: 04/01/19 08:59 Last Admin: 02/02/19 08:13 Dose: 1 tab Zolpidem Tartrate (Ambien) 5 mg PO HS PRN PRN Reason: Insomnia Stop: 03/31/19 10:19 Last Admin: 02/02/19 20:35 Dose: 5 mg General: alert HEENT: NC/AT, PERRLA, EOMI Neck: Supple, No JVD, No thyromegaly, No LAD Lungs: CTAB Cardiovascular: RRR, Normal S1, Normal S2 Extremities: clear Neurological: no change, alert - Procedures Procedures: Procedures Procedure Code Date INDIVID PSYCHOTHERAP NEC 94.39 09/27/08 OTHER GROUP THERAPY 94.44 10/14/08 RECREATIONAL THERAPY 93.81 10/14/08 Internal Medicine Assmt/Plan - Assessment Assessment: ACUTE PSYCH DECOMPENSATION HISTORY OF SCHIZOPHRENIA/PSYCHOAFFECTIVE D/O HISTORY OF HYPOTHYROIDISM ESSENTIAL/SYSTEMIC HTN NICOTINE DEPENDENCE POSSIBLE BRONCHITIS-clinically stable. LEFT APEX NODULE--FOLLOW CT SCAN OUTPT - Plan Plan: CONT WITH CURRENT IN-PATIENT PSYCH SUPPORTIVE CARE AND MGT CONT WITH AMLODIPINE 10MG QDAY, HCTZ 25MG QDAY/CLONIDINE PRN CONT WITH LEVOTHYROXINE 100MCG QDAY CONT WITH CIPRO 250MG BID/PHENERGAN DM PRN
[2019-02-03] MEDS: Levothyroxine 0.1 Mg Tab PO SCH (06:38)
[2019-02-03] MEDS: risperiDONE 4 mg Tab PO SCH ×2 (08:44→16:29)
[2019-02-03] MEDS: Multivitamin Tab PO SCH (08:44)
[2019-02-03] MEDS: Vitamin B Complex w/Vitamin C Tab PO SCH (08:44)
--- NOTE | 2019-02-03 13:21 | Progress Notes ---
DATE: 02/02/2019 SUBJECTIVE: Chart reviewed and the patient interviewed. Also, discussed the patient's condition with the staff and reviewed records and labs. The patient continued to be agitated and continued to be confused. The patient also is still talking to himself and actively hallucinating. The patient also is restless and he is pacing up and down the unit. Otherwise, the patient is compliant with taking his medications with no side effects of medications. ASSESSMENT: The patient is still agitated and is still exhibiting manic behavior. TREATMENT PLAN: Continue to monitor his behavior and his condition closely. Also, continue adjusting psychotropic medications and work on behavioral modification. JOB# [id number]
[2019-02-04] MEDS: Levothyroxine 0.1 Mg Tab PO SCH (06:33)
[2019-02-04] MEDS: Multivitamin Tab PO SCH (08:56)
[2019-02-04] MEDS: risperiDONE 4 mg Tab PO SCH ×2 (08:56→17:12)
[2019-02-04] MEDS: Vitamin B Complex w/Vitamin C Tab PO SCH (08:57)
--- NOTE | 2019-02-04 11:19 | Progress Notes ---
DATE: 02/03/[address] Vallejo. IDENTIFYING DATA: This is a 58-year-old male [facility] after the patient psychotic and agitated and mumbling to himself. Overnight, nursing staff reported the patient continued to be delusional, labile and blunted affect. Today on [id number] approach, the patient reports "I stand everything to left me alone." When attempting to discuss and validate emotions, he becomes more agitated and continued to be disorganized. MENTAL STATUS EXAMINATION: Actively hallucinating in distress. ASSESSMENT AND PLAN: Due to the patient's undergoing psychotic symptoms, unable to formulate a safe plan outside the structured environment. We will continue with the current medication regimen Depakote 500 mg p.o. b.i.d., lithium 300 mg p.o. b.i.d., Risperdal 4 mg b.i.d. No side effects of medication noted by the patient. JOB# [id number]
--- NOTE | 2019-02-04 11:50 | Internal Medicine Prog Note ---
Internal Medicine Subjective - Subjective Service Date: 02/04/19 (NO EVENTS ) Patient seen and examined:: without staff Patient is:: awake Per staff patient has:: no adverse event Internal Medicine Objective - Results Result Diagrams: 01/30/19 11:25 01/30/19 11:25 Recent Labs: Laboratory Last Values WBC 8.2 Th/cmm (4.8-10.8) 01/30/19 11:25 RBC 4.41 Mil/cmm (4.30-5.70) 01/30/19 11:25 Hgb 13.1 gm/dL (12-16) 01/30/19 11:25 Hct 39.6 % (41.0-60) L 01/30/19 11:25 MCV 90.0 fl (80-99) 01/30/19 11:25 MCH 29.7 pg (26.0-30.0) 01/30/19 11:25 MCHC Differential 33.0 pg (28.0-36.0) 01/30/19 11:25 RDW 13.6 % (11.5-20.0) 01/30/19 11:25 Plt Count 285 Th/cmm (150-400) 01/30/19 11:25 MPV 8.3 fl 01/30/19 11:25 Neutrophils % 62.6 % (40.0-80.0) 01/30/19 11:25 Lymphocytes % 24.8 % (20.0-50.0) 01/30/19 11:25 Monocytes % 6.7 % (2.0-10.0) 01/30/19 11:25 Eosinophils % 4.8 % (0.0-5.0) 01/30/19 11:25 Basophils % 1.1 % (0.0-2.0) 01/30/19 11:25 Sodium 142 mEq/L (136-145) 01/30/19 11:25 Potassium 3.8 mEq/L (3.5-5.1) 01/30/19 11:25 Chloride 107 mEq/L (98-107) 01/30/19 11:25 Carbon Dioxide 26.8 mEq/L (21.0-31.0) 01/30/19 11:25 Anion Gap 12.0 (7.0-16.0) 01/30/19 11:25 BUN 16 mg/dL (7-25) 01/30/19 11:25 Creatinine 0.9 mg/dL (0.7-1.3) 01/30/19 11:25 Est GFR ( Amer) > 60.0 ml/min (>90) 01/30/19 11:25 Est GFR (Non-Af Amer) > 60.0 ml/min 01/30/19 11:25 BUN/Creatinine Ratio 17.8 01/30/19 11:25 Glucose 103 mg/dL (70-105) 01/30/19 11:25 Calcium 9.5 mg/dL (8.6-10.3) 01/30/19 11:25 Total Bilirubin 0.5 mg/dL (0.3-1.0) 01/30/19 11:25 AST 39 U/L (13-39) 01/30/19 11:25 ALT 61 U/L (7-52) H 01/30/19 11:25 Alkaline Phosphatase 69 U/L (34-104) 01/30/19 11:25 Total Protein 7.3 gm/dL (6.0-8.3) 01/30/19 11:25 Albumin 3.8 gm/dL (4.2-5.5) L 01/30/19 11:25 Globulin 3.5 gm/dL 01/30/19 11:25 Albumin/Globulin Ratio 1.1 (1.0-1.8) 01/30/19 11:25 Triglycerides 96 mg/dL (<150) 01/30/19 11:25 Cholesterol 103 mg/dL (<200) 01/30/19 11:25 LDL Cholesterol Direct 55 mg/dL (75-193) L 01/30/19 11:25 HDL Cholesterol 39 mg/dL (23-92) 01/30/19 11:25 Valproic Acid 30.0 ug/mL (50.0-100.0) L 02/01/19 11:45 RPR NONREACTIVE (NONREACTIVE) 01/30/19 11:25 - Physical Exam Vitals and I&O: Vital Signs Temp 98.1 F 02/04/19 05:50 Pulse 56 02/04/19 08:54 Resp 20 02/04/19 05:50 BP 150/76 02/04/19 08:56 Pulse Ox 97 02/04/19 05:50 Intake & Output 02/03/19 02/04/19 02/04/19 18:59 06:59 18:59 Intake Total 1200 720 Balance 1200 720 Intake: Oral 1200 720 Other: # Voids 4 2 # Bowel Movements 1 Active Medications: Current Medications Acetaminophen (Tylenol) 650 mg PO Q4HR PRN PRN Reason: Mild Pain / Temp above 100 Stop: 03/31/19 10:19 Last Admin: 01/30/19 17:40 Dose: 650 mg Al Hydrox/Mg Hydrox/Simethicone (Maalox) 30 ml PO Q4HR PRN PRN Reason: GI DISTRESS Stop: 03/31/19 10:19 Amlodipine Besylate (Norvasc) 10 mg PO DAILY [facility] Stop: 04/01/19 08:59 Last Admin: 02/04/19 08:54 Dose: 10 mg Ciprofloxacin (Cipro) 500 mg PO BID [facility] Stop: 03/31/19 16:59 Last Admin: 02/04/19 08:55 Dose: 500 mg Divalproex Sodium (Depakote Dr) 500 mg PO BID [facility]; Protocol Stop: 03/31/19 23:29 Last Admin: 02/04/19 08:56 Dose: 500 mg Hydrochlorothiazide (Hctz) 25 mg PO DAILY [facility] Stop: 04/01/19 08:59 Last Admin: 02/04/19 08:56 Dose: 25 mg Levothyroxine Sodium (Synthroid) 0.1 mg PO QDAC [facility] Stop: 04/01/19 07:29 Last Admin: 02/04/19 06:33 Dose: 0.1 mg [place] Carbonate (Eskalith) 300 mg PO BID [facility]; Protocol Stop: 04/02/19 16:59 Last Admin: 02/04/19 08:56 Dose: 300 mg Lorazepam (Ativan) 0.5 mg PO Q4HR PRN; Protocol PRN Reason: Anxiety Stop: 03/01/19 10:19 Magnesium Hydroxide (Milk Of Magnesia) 30 ml PO HS PRN PRN Reason: Constipation Multivitamins/Vitamin C (Theragran) 1 tab PO DAILY [facility] Stop: 04/01/19 08:59 Last Admin: 02/04/19 08:56 Dose: 1 tab Promethazine HCl/Dextromethorphan (Phenergan Dm 6.25/15mg-5 Ml) 10 ml PO Q4HR PRN PRN Reason: Cough Stop: 03/31/19 13:11 Risperidone (Risperdal) 4 mg PO BID [facility]; Protocol Stop: 03/31/19 16:59 Last Admin: 02/04/19 08:56 Dose: 4 mg Trazodone HCl (Desyrel) 100 mg PO HS [facility]; Protocol Stop: 04/01/19 20:59 Last Admin: 02/03/19 20:26 Dose: 100 mg Vitamin B Complex/Vit C/Folic Acid (Vitamin B Complex W/Vitamin C) 1 tab PO DAILY [facility] Stop: 04/01/19 08:59 Last Admin: 02/04/19 08:57 Dose: 1 tab Zolpidem Tartrate (Ambien) 5 mg PO HS PRN PRN Reason: Insomnia Stop: 03/31/19 10:19 Last Admin: 02/03/19 20:26 Dose: 5 mg General: alert HEENT: NC/AT, PERRLA, EOMI Neck: Supple, No JVD, No thyromegaly, No LAD Lungs: CTAB Cardiovascular: RRR, Normal S1, Normal S2 Extremities: clear Neurological: no change, alert - Procedures Procedures: Procedures Procedure Code Date INDIVID PSYCHOTHERAP NEC 94.39 09/27/08 OTHER GROUP THERAPY 94.44 10/14/08 RECREATIONAL THERAPY 93.81 10/14/08 Internal Medicine Assmt/Plan - Assessment Assessment: ACUTE PSYCH DECOMPENSATION HISTORY OF SCHIZOPHRENIA/PSYCHOAFFECTIVE D/O HISTORY OF HYPOTHYROIDISM ESSENTIAL/SYSTEMIC HTN NICOTINE DEPENDENCE POSSIBLE BRONCHITIS-clinically stable. LEFT APEX NODULE--FOLLOW CT SCAN OUTPT - Plan Plan: CONT WITH CURRENT IN-PATIENT PSYCH SUPPORTIVE CARE AND MGT CONT WITH AMLODIPINE 10MG QDAY, HCTZ 25MG QDAY/CLONIDINE PRN CONT WITH LEVOTHYROXINE 100MCG QDAY CIPRO, PHENERGAN DM PRN
--- NOTE | 2019-02-05 05:16 | Progress Notes ---
DATE: 02/04/2019 SUBJECTIVE: The patient was seen and evaluated. The patient's chart reviewed. This is Dr. Charlton covering for Dr. Vallejo. Today on [id number] evaluation, the patient denies any side effects of the Depakote or the lithium, under Risperdal and trazodone. The patient reported his sleep is getting better with the trazodone. During the interview, he is observed to be still irritable and also noted to be easily agitated and suspicious as he continues to be internally preoccupied, which is consistent with what the nursing staff has been documented. ASSESSMENT AND PLAN: History of schizophrenia, ____ and disheveled and malodorous, unable to formulate safe plan outside the structured environment. We will continue monitoring volume with the current medication regimen. JOB# [id number]
[2019-02-05] MEDS: Levothyroxine 0.1 Mg Tab PO SCH (06:35)
[2019-02-05] MEDS: Multivitamin Tab PO SCH (09:10)
[2019-02-05] MEDS: risperiDONE 4 mg Tab PO SCH ×2 (09:11→16:06)
[2019-02-05] MEDS: Vitamin B Complex w/Vitamin C Tab PO SCH (09:11)
--- NOTE | 2019-02-05 22:15 | Internal Medicine Prog Note ---
Internal Medicine Subjective - Subjective Service Date: 02/05/19 (no major changes) Patient is:: awake Per staff patient has:: no adverse event Internal Medicine Objective - Results Result Diagrams: 01/30/19 11:25 01/30/19 11:25 Recent Labs: Laboratory Last Values WBC 8.2 Th/cmm (4.8-10.8) 01/30/19 11:25 RBC 4.41 Mil/cmm (4.30-5.70) 01/30/19 11:25 Hgb 13.1 gm/dL (12-16) 01/30/19 11:25 Hct 39.6 % (41.0-60) L 01/30/19 11:25 MCV 90.0 fl (80-99) 01/30/19 11:25 MCH 29.7 pg (26.0-30.0) 01/30/19 11:25 MCHC Differential 33.0 pg (28.0-36.0) 01/30/19 11:25 RDW 13.6 % (11.5-20.0) 01/30/19 11:25 Plt Count 285 Th/cmm (150-400) 01/30/19 11:25 MPV 8.3 fl 01/30/19 11:25 Neutrophils % 62.6 % (40.0-80.0) 01/30/19 11:25 Lymphocytes % 24.8 % (20.0-50.0) 01/30/19 11:25 Monocytes % 6.7 % (2.0-10.0) 01/30/19 11:25 Eosinophils % 4.8 % (0.0-5.0) 01/30/19 11:25 Basophils % 1.1 % (0.0-2.0) 01/30/19 11:25 Sodium 142 mEq/L (136-145) 01/30/19 11:25 Potassium 3.8 mEq/L (3.5-5.1) 01/30/19 11:25 Chloride 107 mEq/L (98-107) 01/30/19 11:25 Carbon Dioxide 26.8 mEq/L (21.0-31.0) 01/30/19 11:25 Anion Gap 12.0 (7.0-16.0) 01/30/19 11:25 BUN 16 mg/dL (7-25) 01/30/19 11:25 Creatinine 0.9 mg/dL (0.7-1.3) 01/30/19 11:25 Est GFR ( Amer) > 60.0 ml/min (>90) 01/30/19 11:25 Est GFR (Non-Af Amer) > 60.0 ml/min 01/30/19 11:25 BUN/Creatinine Ratio 17.8 01/30/19 11:25 Glucose 103 mg/dL (70-105) 01/30/19 11:25 Calcium 9.5 mg/dL (8.6-10.3) 01/30/19 11:25 Total Bilirubin 0.5 mg/dL (0.3-1.0) 01/30/19 11:25 AST 39 U/L (13-39) 01/30/19 11:25 ALT 61 U/L (7-52) H 01/30/19 11:25 Alkaline Phosphatase 69 U/L (34-104) 01/30/19 11:25 Total Protein 7.3 gm/dL (6.0-8.3) 01/30/19 11:25 Albumin 3.8 gm/dL (4.2-5.5) L 01/30/19 11:25 Globulin 3.5 gm/dL 01/30/19 11:25 Albumin/Globulin Ratio 1.1 (1.0-1.8) 01/30/19 11:25 Triglycerides 96 mg/dL (<150) 01/30/19 11:25 Cholesterol 103 mg/dL (<200) 01/30/19 11:25 LDL Cholesterol Direct 55 mg/dL (75-193) L 01/30/19 11:25 HDL Cholesterol 39 mg/dL (23-92) 01/30/19 11:25 Valproic Acid 30.0 ug/mL (50.0-100.0) L 02/01/19 11:45 RPR NONREACTIVE (NONREACTIVE) 01/30/19 11:25 - Physical Exam Vitals and I&O: Vital Signs Temp 98.2 F 02/05/19 20:23 Pulse 68 02/05/19 20:23 Resp 19 02/05/19 20:23 BP 138/85 02/05/19 20:23 Pulse Ox 96 02/05/19 20:23 Intake & Output 02/05/19 02/05/19 02/06/19 06:59 18:59 06:59 Intake Total 420 240 Balance 420 240 Intake: Oral 420 240 Other: # Voids 2 2 # Bowel Movements 0 1 Active Medications: Current Medications Acetaminophen (Tylenol) 650 mg PO Q4HR PRN PRN Reason: Mild Pain / Temp above 100 Stop: 03/31/19 10:19 Last Admin: 01/30/19 17:40 Dose: 650 mg Al Hydrox/Mg Hydrox/Simethicone (Maalox) 30 ml PO Q4HR PRN PRN Reason: GI DISTRESS Stop: 03/31/19 10:19 Amlodipine Besylate (Norvasc) 10 mg PO DAILY [facility] Stop: 04/01/19 08:59 Last Admin: 02/05/19 09:10 Dose: 10 mg Ciprofloxacin (Cipro) 500 mg PO BID [facility] Stop: 03/31/19 16:59 Last Admin: 02/05/19 16:06 Dose: 500 mg Divalproex Sodium (Depakote Dr) 500 mg PO BID [facility]; Protocol Stop: 03/31/19 23:29 Last Admin: 02/05/19 16:05 Dose: 500 mg Hydrochlorothiazide (Hctz) 25 mg PO DAILY [facility] Stop: 04/01/19 08:59 Last Admin: 02/05/19 09:11 Dose: 25 mg Levothyroxine Sodium (Synthroid) 0.1 mg PO QDAC [facility] Stop: 04/01/19 07:29 Last Admin: 02/05/19 06:35 Dose: 0.1 mg [place] Carbonate (Eskalith) 300 mg PO BID [facility]; Protocol Stop: 04/02/19 16:59 Last Admin: 02/05/19 16:05 Dose: 300 mg Lorazepam (Ativan) 0.5 mg PO Q4HR PRN; Protocol PRN Reason: Anxiety Stop: 03/01/19 10:19 Last Admin: 02/05/19 21:05 Dose: 0.5 mg Magnesium Hydroxide (Milk Of Magnesia) 30 ml PO HS PRN PRN Reason: Constipation Multivitamins/Vitamin C (Theragran) 1 tab PO DAILY [facility] Stop: 04/01/19 08:59 Last Admin: 02/05/19 09:10 Dose: 1 tab Promethazine HCl/Dextromethorphan (Phenergan Dm 6.25/15mg-5 Ml) 10 ml PO Q4HR PRN PRN Reason: Cough Stop: 03/31/19 13:11 Risperidone (Risperdal) 4 mg PO BID [facility]; Protocol Stop: 03/31/19 16:59 Last Admin: 02/05/19 16:06 Dose: 4 mg Trazodone HCl (Desyrel) 100 mg PO HS [facility]; Protocol Stop: 04/01/19 20:59 Last Admin: 02/05/19 21:05 Dose: 100 mg Vitamin B Complex/Vit C/Folic Acid (Vitamin B Complex W/Vitamin C) 1 tab PO DAILY [facility] Stop: 04/01/19 08:59 Last Admin: 02/05/19 09:11 Dose: 1 tab Zolpidem Tartrate (Ambien) 5 mg PO HS PRN PRN Reason: Insomnia Stop: 03/31/19 10:19 Last Admin: 02/04/19 20:51 Dose: 5 mg General: alert HEENT: NC/AT, PERRLA, EOMI Neck: Supple, No JVD, No thyromegaly, No LAD Lungs: CTAB Cardiovascular: RRR, Normal S1, Normal S2 Extremities: clear Neurological: no change, alert - Procedures Procedures: Procedures Procedure Code Date INDIVID PSYCHOTHERAP NEC 94.39 09/27/08 OTHER GROUP THERAPY 94.44 10/14/08 RECREATIONAL THERAPY 93.81 10/14/08 Internal Medicine Assmt/Plan - Assessment Assessment: ACUTE PSYCH DECOMPENSATION HISTORY OF SCHIZOPHRENIA/PSYCHOAFFECTIVE D/O HISTORY OF HYPOTHYROIDISM ESSENTIAL/SYSTEMIC HTN NICOTINE DEPENDENCE POSSIBLE BRONCHITIS-clinically stable. LEFT APEX NODULE--FOLLOW CT SCAN OUTPT - Plan Plan: CONT WITH CURRENT IN-PATIENT PSYCH SUPPORTIVE CARE AND MGT CONT WITH AMLODIPINE 10MG QDAY, HCTZ 25MG QDAY/CLONIDINE PRN CONT WITH LEVOTHYROXINE 100MCG QDAY CIPRO, PHENERGAN DM PRN Nutritional Asmnt/Malnutr-PDOC - Dietary Evaluation Malnutrition Findings (Please click <Entered> for more info): Nutritional Asmnt/Malnutrition Start: 02/05/19 13: 09 Text: Status: Complete Freq: Protocol: Document 02/05/19 13:32 [email or web address] (Rec: 02/05/19 14:11 [email or web address]) Nutritional Asmnt/Malnutrition Patient General Information Nutritional Screening Low Risk Diagnosis psychosis Pertinent Medical Hx/Surgical Hx schizophrenia, depression, bipolar, hypothyroidism, pancreatic insufficency, HTN Subjective Information Pt seen in patio after lunch. Per EMR, PO intake 100%. Current Diet Order/ Nutrition Support regular Pertinent Medications synthroid, theragran, vit B complex Pertinent Labs 01/30 alb 3.8 Nutritional Hx/Data Height 1.73 m Height (Calculated Centimeters) 172.7 Current Weight (lbs) 55.792 kg Weight (Calculated Kilograms) 55.8 Weight (Calculated Grams) 49973.9 [place] Body Weight 154 Body Mass Index (BMI) 18.7 Weight Status Approriate GI Symptoms GI Symptoms None Last BM 02/04 Difficult in: None Skin Integrity/Comment: intact Current %PO Good (75-100%) Estimated Nutritional Goals BEE in Kcals: Using Current wt Calories/Kcals/Kg 27-32 Kcals Calculated 3956-4148 Protein: Using Current wt Protein g/k Protein Calculated 56 Fluid: ml 1512-1792ml (1ml/kcal) Nutritional Problem No current Nutrition Prob Problem n/A Malnutrition Alert Is there a minimum of two criteria No selected? Query Text:Check all the applicable criteria. A minimum of two criteria are recommended for diagnosis of either severe or non-severe malnutrition. Malnutrition Related to Morbid Obesity Malnutrition related to morbid obesity No Intervention/Recommendation Comments 1. Continue with regular diet as ordered. 2. Monitor PO intake, wt, labs and skin integrity 3. F/U as low risk in 7 days Expected Outcomes/Goals Expected Outcomes/Goals 1. PO intake to meet at least 75% of nutritional needs. 2. Wt stability, skin to remain intact, labs to approach WNL.
[2019-02-06] MEDS: Levothyroxine 0.1 Mg Tab PO SCH (06:41)
[2019-02-06] MEDS: Vitamin B Complex w/Vitamin C Tab PO SCH (09:06)
[2019-02-06] MEDS: risperiDONE 4 mg Tab PO SCH ×2 (09:06→17:09)
[2019-02-06] MEDS: Multivitamin Tab PO SCH (09:06)
--- NOTE | 2019-02-06 10:10 | Internal Medicine Prog Note ---
Internal Medicine Subjective - Subjective Service Date: 02/06/19 (no distress) Patient is:: awake Per staff patient has:: no adverse event Internal Medicine Objective - Results Result Diagrams: 01/30/19 11:25 01/30/19 11:25 Recent Labs: Laboratory Last Values WBC 8.2 Th/cmm (4.8-10.8) 01/30/19 11:25 RBC 4.41 Mil/cmm (4.30-5.70) 01/30/19 11:25 Hgb 13.1 gm/dL (12-16) 01/30/19 11:25 Hct 39.6 % (41.0-60) L 01/30/19 11:25 MCV 90.0 fl (80-99) 01/30/19 11:25 MCH 29.7 pg (26.0-30.0) 01/30/19 11:25 MCHC Differential 33.0 pg (28.0-36.0) 01/30/19 11:25 RDW 13.6 % (11.5-20.0) 01/30/19 11:25 Plt Count 285 Th/cmm (150-400) 01/30/19 11:25 MPV 8.3 fl 01/30/19 11:25 Neutrophils % 62.6 % (40.0-80.0) 01/30/19 11:25 Lymphocytes % 24.8 % (20.0-50.0) 01/30/19 11:25 Monocytes % 6.7 % (2.0-10.0) 01/30/19 11:25 Eosinophils % 4.8 % (0.0-5.0) 01/30/19 11:25 Basophils % 1.1 % (0.0-2.0) 01/30/19 11:25 Sodium 142 mEq/L (136-145) 01/30/19 11:25 Potassium 3.8 mEq/L (3.5-5.1) 01/30/19 11:25 Chloride 107 mEq/L (98-107) 01/30/19 11:25 Carbon Dioxide 26.8 mEq/L (21.0-31.0) 01/30/19 11:25 Anion Gap 12.0 (7.0-16.0) 01/30/19 11:25 BUN 16 mg/dL (7-25) 01/30/19 11:25 Creatinine 0.9 mg/dL (0.7-1.3) 01/30/19 11:25 Est GFR ( Amer) > 60.0 ml/min (>90) 01/30/19 11:25 Est GFR (Non-Af Amer) > 60.0 ml/min 01/30/19 11:25 BUN/Creatinine Ratio 17.8 01/30/19 11:25 Glucose 103 mg/dL (70-105) 01/30/19 11:25 Calcium 9.5 mg/dL (8.6-10.3) 01/30/19 11:25 Total Bilirubin 0.5 mg/dL (0.3-1.0) 01/30/19 11:25 AST 39 U/L (13-39) 01/30/19 11:25 ALT 61 U/L (7-52) H 01/30/19 11:25 Alkaline Phosphatase 69 U/L (34-104) 01/30/19 11:25 Total Protein 7.3 gm/dL (6.0-8.3) 01/30/19 11:25 Albumin 3.8 gm/dL (4.2-5.5) L 01/30/19 11:25 Globulin 3.5 gm/dL 01/30/19 11:25 Albumin/Globulin Ratio 1.1 (1.0-1.8) 01/30/19 11:25 Triglycerides 96 mg/dL (<150) 01/30/19 11:25 Cholesterol 103 mg/dL (<200) 01/30/19 11:25 LDL Cholesterol Direct 55 mg/dL (75-193) L 01/30/19 11:25 HDL Cholesterol 39 mg/dL (23-92) 01/30/19 11:25 Valproic Acid 62.8 ug/mL (50.0-100.0) 02/06/19 06:22 RPR NONREACTIVE (NONREACTIVE) 01/30/19 11:25 - Physical Exam Vitals and I&O: Vital Signs Temp 97.5 F 02/06/19 06:16 Pulse 69 02/06/19 09:07 Resp 19 02/06/19 08:00 BP 162/98 02/06/19 09:07 Pulse Ox 98 02/06/19 06:16 Intake & Output 02/05/19 02/06/19 02/06/19 18:59 06:59 18:59 Intake Total 420 Balance 420 Intake: Oral 420 Other: # Voids 1 # Bowel Movements 0 Active Medications: Current Medications Acetaminophen (Tylenol) 650 mg PO Q4HR PRN PRN Reason: Mild Pain / Temp above 100 Stop: 03/31/19 10:19 Last Admin: 01/30/19 17:40 Dose: 650 mg Al Hydrox/Mg Hydrox/Simethicone (Maalox) 30 ml PO Q4HR PRN PRN Reason: GI DISTRESS Stop: 03/31/19 10:19 Amlodipine Besylate (Norvasc) 10 mg PO DAILY [facility] Stop: 04/01/19 08:59 Last Admin: 02/06/19 09:07 Dose: 10 mg Ciprofloxacin (Cipro) 500 mg PO BID [facility] Stop: 03/31/19 16:59 Last Admin: 02/06/19 09:06 Dose: 500 mg Divalproex Sodium (Depakote Dr) 500 mg PO BID [facility]; Protocol Stop: 03/31/19 23:29 Last Admin: 02/06/19 09:07 Dose: 500 mg Hydrochlorothiazide (Hctz) 25 mg PO DAILY [facility] Stop: 04/01/19 08:59 Last Admin: 02/06/19 09:07 Dose: 25 mg Levothyroxine Sodium (Synthroid) 0.1 mg PO QDAC [facility] Stop: 04/01/19 07:29 Last Admin: 02/06/19 06:41 Dose: 0.1 mg [place] Carbonate (Eskalith) 300 mg PO BID [facility]; Protocol Stop: 04/02/19 16:59 Last Admin: 02/06/19 09:06 Dose: 300 mg Lorazepam (Ativan) 0.5 mg PO Q4HR PRN; Protocol PRN Reason: Anxiety Stop: 03/01/19 10:19 Last Admin: 02/05/19 21:05 Dose: 0.5 mg Magnesium Hydroxide (Milk Of Magnesia) 30 ml PO HS PRN PRN Reason: Constipation Multivitamins/Vitamin C (Theragran) 1 tab PO DAILY [facility] Stop: 04/01/19 08:59 Last Admin: 02/06/19 09:06 Dose: 1 tab Promethazine HCl/Dextromethorphan (Phenergan Dm 6.25/15mg-5 Ml) 10 ml PO Q4HR PRN PRN Reason: Cough Stop: 03/31/19 13:11 Risperidone (Risperdal) 4 mg PO BID [facility]; Protocol Stop: 03/31/19 16:59 Last Admin: 02/06/19 09:06 Dose: 4 mg Trazodone HCl (Desyrel) 100 mg PO HS [facility]; Protocol Stop: 04/01/19 20:59 Last Admin: 02/05/19 21:05 Dose: 100 mg Vitamin B Complex/Vit C/Folic Acid (Vitamin B Complex W/Vitamin C) 1 tab PO DAILY [facility] Stop: 04/01/19 08:59 Last Admin: 02/06/19 09:06 Dose: 1 tab Zolpidem Tartrate (Ambien) 5 mg PO HS PRN PRN Reason: Insomnia Stop: 03/31/19 10:19 Last Admin: 02/05/19 23:59 Dose: 5 mg General: alert HEENT: NC/AT, PERRLA, EOMI Neck: Supple, No JVD, No thyromegaly, No LAD Lungs: CTAB Cardiovascular: RRR, Normal S1, Normal S2 Extremities: clear Neurological: no change, alert - Procedures Procedures: Procedures Procedure Code Date INDIVID PSYCHOTHERAP NEC 94.39 09/27/08 OTHER GROUP THERAPY 94.44 10/14/08 RECREATIONAL THERAPY 93.81 10/14/08 Internal Medicine Assmt/Plan - Assessment Assessment: ACUTE PSYCH DECOMPENSATION HISTORY OF SCHIZOPHRENIA/PSYCHOAFFECTIVE D/O HISTORY OF HYPOTHYROIDISM ESSENTIAL/SYSTEMIC HTN NICOTINE DEPENDENCE POSSIBLE BRONCHITIS-clinically stable. LEFT APEX NODULE--FOLLOW CT SCAN OUTPT - Plan Plan: CONT WITH CURRENT IN-PATIENT PSYCH SUPPORTIVE CARE AND MGT CONT WITH AMLODIPINE 10MG QDAY, HCTZ 25MG QDAY/CLONIDINE PRN, START LISINOPRIL 5MG QDAY CONT WITH LEVOTHYROXINE 100MCG QDAY CIPRO, PHENERGAN DM PRN Nutritional Asmnt/Malnutr-PDOC - Dietary Evaluation Malnutrition Findings (Please click <Entered> for more info): Nutritional Asmnt/Malnutrition Start: 02/05/19 13: 09 Text: Status: Complete Freq: Protocol: Document 02/05/19 13:32 [email or web address] (Rec: 02/05/19 14:11 [email or web address]) Nutritional Asmnt/Malnutrition Patient General Information Nutritional Screening Low Risk Diagnosis psychosis Pertinent Medical Hx/Surgical Hx schizophrenia, depression, bipolar, hypothyroidism, pancreatic insufficency, HTN Subjective Information Pt seen in patio after lunch. Per EMR, PO intake 100%. Current Diet Order/ Nutrition Support regular Pertinent Medications synthroid, theragran, vit B complex Pertinent Labs 01/30 alb 3.8 Nutritional Hx/Data Height 1.73 m Height (Calculated Centimeters) 172.7 Current Weight (lbs) 55.792 kg Weight (Calculated Kilograms) 55.8 Weight (Calculated Grams) 79558.9 [place] Body Weight 154 Body Mass Index (BMI) 18.7 Weight Status Approriate GI Symptoms GI Symptoms None Last BM 02/04 Difficult in: None Skin Integrity/Comment: intact Current %PO Good (75-100%) Estimated Nutritional Goals BEE in Kcals: Using Current wt Calories/Kcals/Kg 27-32 Kcals Calculated 2456-9825 Protein: Using Current wt Protein g/k Protein Calculated 56 Fluid: ml 1512-1792ml (1ml/kcal) Nutritional Problem No current Nutrition Prob Problem n/A Malnutrition Alert Is there a minimum of two criteria No selected? Query Text:Check all the applicable criteria. A minimum of two criteria are recommended for diagnosis of either severe or non-severe malnutrition. Malnutrition Related to Morbid Obesity Malnutrition related to morbid obesity No Intervention/Recommendation Comments 1. Continue with regular diet as ordered. 2. Monitor PO intake, wt, labs and skin integrity 3. F/U as low risk in 7 days Expected Outcomes/Goals Expected Outcomes/Goals 1. PO intake to meet at least 75% of nutritional needs. 2. Wt stability, skin to remain intact, labs to approach WNL.
--- NOTE | 2019-02-06 10:12 | Progress Notes ---
DATE: 02/05/2019 PSYCHIATRIC PROGRESS NOTE SUBJECTIVE: Chart reviewed and the patient interviewed. Also discussed the patient's condition with the staff and reviewed records and labs. The patient still seems to be preoccupied and is still forgetful. The patient also still needs lots of redirections. Also, personal hygiene is still poor and the patient is disheveled. Also, he is hyperverbal at times and is still mumbling and talking to himself. Otherwise, the patient is compliant with taking his medications with no side effects of medications. ASSESSMENT: The patient is still psychotic. TREATMENT PLAN: Continue to monitor his behavior and his condition closely. Also, we will get Depakote and lithium blood level tomorrow. Depakote level that was done on 02/01 was 30, which is below therapeutic level. At the same time, we will continue Risperdal and Depakote and lithium and trazodone and continue to follow up closely. JOB# [id number]
--- NOTE | 2019-02-06 19:35 | Progress Notes ---
DATE: 02/06/2019 SUBJECTIVE: Chart reviewed and the patient interviewed. Also discussed the patient's condition with the staff and reviewed records and labs. The patient is still anxious and he seems to be more depressed today. The patient also is interacting minimally with others and tends to isolate himself. Also, still feeling hopeless and helpless. The patient also is still showing poor personal hygiene and still disheveled. Otherwise, the patient is cooperative with his treatment and compliant with taking his medications with no side effects. Physical examination of the patient is basically within normal. Depakote blood level that was done on 02/01/2019 came back to be 30, which is below therapeutic level. ASSESSMENT: The patient is still depressed and psychotic. TREATMENT PLAN: Continue to monitor his behavior and his condition closely. Also continue adjusting psychotropic medications. Also, plan to get tomorrow a Depakote and lithium blood level. Also, continue to work on his ineffective coping. JOB# [id number]
[2019-02-07] MEDS: Levothyroxine 0.1 Mg Tab PO SCH (06:35)
[2019-02-07] MEDS: Vitamin B Complex w/Vitamin C Tab PO SCH (09:18)
[2019-02-07] MEDS: risperiDONE 4 mg Tab PO SCH ×2 (09:18→16:44)
[2019-02-07] MEDS: Multivitamin Tab PO SCH (09:19)
--- NOTE | 2019-02-07 23:02 | Internal Medicine Prog Note ---
Internal Medicine Subjective - Subjective Service Date: 02/07/19 (COMFORTABLE) Patient is:: awake Per staff patient has:: no adverse event Internal Medicine Objective - Results Result Diagrams: 01/30/19 11:25 01/30/19 11:25 Recent Labs: Laboratory Last Values WBC 8.2 Th/cmm (4.8-10.8) 01/30/19 11:25 RBC 4.41 Mil/cmm (4.30-5.70) 01/30/19 11:25 Hgb 13.1 gm/dL (12-16) 01/30/19 11:25 Hct 39.6 % (41.0-60) L 01/30/19 11:25 MCV 90.0 fl (80-99) 01/30/19 11:25 MCH 29.7 pg (26.0-30.0) 01/30/19 11:25 MCHC Differential 33.0 pg (28.0-36.0) 01/30/19 11:25 RDW 13.6 % (11.5-20.0) 01/30/19 11:25 Plt Count 285 Th/cmm (150-400) 01/30/19 11:25 MPV 8.3 fl 01/30/19 11:25 Neutrophils % 62.6 % (40.0-80.0) 01/30/19 11:25 Lymphocytes % 24.8 % (20.0-50.0) 01/30/19 11:25 Monocytes % 6.7 % (2.0-10.0) 01/30/19 11:25 Eosinophils % 4.8 % (0.0-5.0) 01/30/19 11:25 Basophils % 1.1 % (0.0-2.0) 01/30/19 11:25 Sodium 142 mEq/L (136-145) 01/30/19 11:25 Potassium 3.8 mEq/L (3.5-5.1) 01/30/19 11:25 Chloride 107 mEq/L (98-107) 01/30/19 11:25 Carbon Dioxide 26.8 mEq/L (21.0-31.0) 01/30/19 11:25 Anion Gap 12.0 (7.0-16.0) 01/30/19 11:25 BUN 16 mg/dL (7-25) 01/30/19 11:25 Creatinine 0.9 mg/dL (0.7-1.3) 01/30/19 11:25 Est GFR ( Amer) > 60.0 ml/min (>90) 01/30/19 11:25 Est GFR (Non-Af Amer) > 60.0 ml/min 01/30/19 11:25 BUN/Creatinine Ratio 17.8 01/30/19 11:25 Glucose 103 mg/dL (70-105) 01/30/19 11:25 Calcium 9.5 mg/dL (8.6-10.3) 01/30/19 11:25 Total Bilirubin 0.5 mg/dL (0.3-1.0) 01/30/19 11:25 AST 39 U/L (13-39) 01/30/19 11:25 ALT 61 U/L (7-52) H 01/30/19 11:25 Alkaline Phosphatase 69 U/L (34-104) 01/30/19 11:25 Total Protein 7.3 gm/dL (6.0-8.3) 01/30/19 11:25 Albumin 3.8 gm/dL (4.2-5.5) L 01/30/19 11:25 Globulin 3.5 gm/dL 01/30/19 11:25 Albumin/Globulin Ratio 1.1 (1.0-1.8) 01/30/19 11:25 Triglycerides 96 mg/dL (<150) 01/30/19 11:25 Cholesterol 103 mg/dL (<200) 01/30/19 11:25 LDL Cholesterol Direct 55 mg/dL (75-193) L 01/30/19 11:25 HDL Cholesterol 39 mg/dL (23-92) 01/30/19 11:25 Valproic Acid 55.0 ug/mL (50.0-100.0) 02/07/19 06:10 [place] 0.21 mmol/L (0.5-1.0) L 02/07/19 06:10 RPR NONREACTIVE (NONREACTIVE) 01/30/19 11:25 - Physical Exam Vitals and I&O: Vital Signs Temp 98.2 F 02/07/19 20:32 Pulse 60 02/07/19 20:32 Resp 20 02/07/19 20:32 BP 123/67 02/07/19 20:32 Pulse Ox 96 02/07/19 20:32 Intake & Output 02/07/19 02/07/19 02/08/19 06:59 18:59 06:59 Intake Total 360 1500 Balance 360 1500 Intake: Oral 360 1500 Other: # Voids 2 3 # Bowel Movements 0 0 Active Medications: Current Medications Acetaminophen (Tylenol) 650 mg PO Q4HR PRN PRN Reason: Mild Pain / Temp above 100 Stop: 03/31/19 10:19 Last Admin: 01/30/19 17:40 Dose: 650 mg Al Hydrox/Mg Hydrox/Simethicone (Maalox) 30 ml PO Q4HR PRN PRN Reason: GI DISTRESS Stop: 03/31/19 10:19 Amlodipine Besylate (Norvasc) 10 mg PO DAILY [facility] Stop: 04/01/19 08:59 Last Admin: 02/07/19 09:20 Dose: 10 mg Ciprofloxacin (Cipro) 500 mg PO BID [facility] Stop: 03/31/19 16:59 Last Admin: 02/07/19 16:43 Dose: Not Given Divalproex Sodium (Depakote Dr) 500 mg PO BID [facility]; Protocol Stop: 03/31/19 23:29 Last Admin: 02/07/19 16:43 Dose: Not Given Hydrochlorothiazide (Hctz) 25 mg PO DAILY [facility] Stop: 04/01/19 08:59 Last Admin: 02/07/19 09:18 Dose: 25 mg Levothyroxine Sodium (Synthroid) 0.1 mg PO QDAC [facility] Stop: 04/01/19 07:29 Last Admin: 02/07/19 06:35 Dose: 0.1 mg Lisinopril (Zestril) 5 mg PO DAILY [facility] Stop: 04/07/19 10:14 Last Admin: 02/07/19 09:19 Dose: 5 mg [place] Carbonate (Eskalith) 300 mg PO BID [facility]; Protocol Stop: 04/02/19 16:59 Last Admin: 02/07/19 16:43 Dose: Not Given Lorazepam (Ativan) 0.5 mg PO Q4HR PRN; Protocol PRN Reason: Anxiety Stop: 03/01/19 10:19 Last Admin: 02/06/19 20:31 Dose: 0.5 mg Magnesium Hydroxide (Milk Of Magnesia) 30 ml PO HS PRN PRN Reason: Constipation Multivitamins/Vitamin C (Theragran) 1 tab PO DAILY [facility] Stop: 04/01/19 08:59 Last Admin: 02/07/19 09:19 Dose: 1 tab Promethazine HCl/Dextromethorphan (Phenergan Dm 6.25/15mg-5 Ml) 10 ml PO Q4HR PRN PRN Reason: Cough Stop: 03/31/19 13:11 Risperidone (Risperdal) 4 mg PO BID [facility]; Protocol Stop: 03/31/19 16:59 Last Admin: 02/07/19 16:44 Dose: Not Given Trazodone HCl (Desyrel) 100 mg PO HS [facility]; Protocol Stop: 04/01/19 20:59 Last Admin: 02/07/19 20:50 Dose: 100 mg Vitamin B Complex/Vit C/Folic Acid (Vitamin B Complex W/Vitamin C) 1 tab PO DAILY [facility] Stop: 04/01/19 08:59 Last Admin: 02/07/19 09:18 Dose: 1 tab Zolpidem Tartrate (Ambien) 5 mg PO HS PRN PRN Reason: Insomnia Stop: 03/31/19 10:19 Last Admin: 02/06/19 20:31 Dose: 5 mg General: alert HEENT: NC/AT, PERRLA, EOMI Neck: Supple, No JVD, No thyromegaly, No LAD Lungs: CTAB Cardiovascular: RRR, Normal S1, Normal S2 Extremities: clear Neurological: no change, alert - Procedures Procedures: Procedures Procedure Code Date INDIVID PSYCHOTHERAP NEC 94.39 09/27/08 OTHER GROUP THERAPY 94.44 10/14/08 RECREATIONAL THERAPY 93.81 10/14/08 Internal Medicine Assmt/Plan - Assessment Assessment: ACUTE PSYCH DECOMPENSATION HISTORY OF SCHIZOPHRENIA/PSYCHOAFFECTIVE D/O HISTORY OF HYPOTHYROIDISM ESSENTIAL/SYSTEMIC HTN NICOTINE DEPENDENCE POSSIBLE BRONCHITIS-clinically stable. LEFT APEX NODULE--FOLLOW CT SCAN OUTPT - Plan Plan: CONT WITH CURRENT IN-PATIENT PSYCH SUPPORTIVE CARE AND MGT CONT WITH AMLODIPINE 10MG QDAY, HCTZ 25MG QDAY/CLONIDINE PRN, START LISINOPRIL 5MG QDAY CONT WITH LEVOTHYROXINE 100MCG QDAY S/P CIPRO, PHENERGAN DM PRN Nutritional Asmnt/Malnutr-PDOC - Dietary Evaluation Malnutrition Findings (Please click <Entered> for more info): Nutritional Asmnt/Malnutrition Start: 02/05/19 13: 09 Text: Status: Complete Freq: Protocol: Document 02/05/19 13:32 [email or web address] (Rec: 02/05/19 14:11 [email or web address]) Nutritional Asmnt/Malnutrition Patient General Information Nutritional Screening Low Risk Diagnosis psychosis Pertinent Medical Hx/Surgical Hx schizophrenia, depression, bipolar, hypothyroidism, pancreatic insufficency, HTN Subjective Information Pt seen in patio after lunch. Per EMR, PO intake 100%. Current Diet Order/ Nutrition Support regular Pertinent Medications synthroid, theragran, vit B complex Pertinent Labs 01/30 alb 3.8 Nutritional Hx/Data Height 1.73 m Height (Calculated Centimeters) 172.7 Current Weight (lbs) 55.792 kg Weight (Calculated Kilograms) 55.8 Weight (Calculated Grams) 35729.9 [place] Body Weight 154 Body Mass Index (BMI) 18.7 Weight Status Approriate GI Symptoms GI Symptoms None Last BM 02/04 Difficult in: None Skin Integrity/Comment: intact Current %PO Good (75-100%) Estimated Nutritional Goals BEE in Kcals: Using Current wt Calories/Kcals/Kg 27-32 Kcals Calculated 4611-3057 Protein: Using Current wt Protein g/k Protein Calculated 56 Fluid: ml 1512-1792ml (1ml/kcal) Nutritional Problem No current Nutrition Prob Problem n/A Malnutrition Alert Is there a minimum of two criteria No selected? Query Text:Check all the applicable criteria. A minimum of two criteria are recommended for diagnosis of either severe or non-severe malnutrition. Malnutrition Related to Morbid Obesity Malnutrition related to morbid obesity No Intervention/Recommendation Comments 1. Continue with regular diet as ordered. 2. Monitor PO intake, wt, labs and skin integrity 3. F/U as low risk in 7 days Expected Outcomes/Goals Expected Outcomes/Goals 1. PO intake to meet at least 75% of nutritional needs. 2. Wt stability, skin to remain intact, labs to approach WNL.
--- NOTE | 2019-02-08 03:11 | Progress Notes ---
DATE: 02/07/2019 SUBJECTIVE: Chart reviewed and the patient interviewed. Also, discussed the patient's condition with the staff and reviewed the records and labs. The patient seems to be slightly calmer, but he is still suspicious and is still paranoid. The patient also is restless. The patient also is still disheveled and has severe mood swings. Yesterday, patient had an episode of agitation where he was severely angry and threatening. Otherwise, the patient is compliant with taking his medications with no side effects. ASSESSMENT: The patient is still agitated and psychotic. TREATMENT PLAN: Continue to monitor his behavior and his condition closely. Also, Depakote blood level that was done yesterday came back to be 62.8 and lithium level was 0.27. No side effects of both and continue adjusting the dose and continue to follow up. JOB# [id number]
[2019-02-08] MEDS: Levothyroxine 0.1 Mg Tab PO SCH (06:40)
[2019-02-08] MEDS: Multivitamin Tab PO SCH (08:27)
[2019-02-08] MEDS: risperiDONE 4 mg Tab PO SCH ×2 (08:27→17:08)
[2019-02-08] MEDS: Vitamin B Complex w/Vitamin C Tab PO SCH (08:27)
--- NOTE | 2019-02-08 09:23 | Internal Medicine Prog Note ---
Internal Medicine Subjective - Subjective Service Date: 02/09/19 (no distress) Patient seen and examined:: without staff Patient is:: awake Per staff patient has:: no adverse event Internal Medicine Objective - Results Result Diagrams: 01/30/19 11:25 01/30/19 11:25 Recent Labs: Laboratory Last Values WBC 8.2 Th/cmm (4.8-10.8) 01/30/19 11:25 RBC 4.41 Mil/cmm (4.30-5.70) 01/30/19 11:25 Hgb 13.1 gm/dL (12-16) 01/30/19 11:25 Hct 39.6 % (41.0-60) L 01/30/19 11:25 MCV 90.0 fl (80-99) 01/30/19 11:25 MCH 29.7 pg (26.0-30.0) 01/30/19 11:25 MCHC Differential 33.0 pg (28.0-36.0) 01/30/19 11:25 RDW 13.6 % (11.5-20.0) 01/30/19 11:25 Plt Count 285 Th/cmm (150-400) 01/30/19 11:25 MPV 8.3 fl 01/30/19 11:25 Neutrophils % 62.6 % (40.0-80.0) 01/30/19 11:25 Lymphocytes % 24.8 % (20.0-50.0) 01/30/19 11:25 Monocytes % 6.7 % (2.0-10.0) 01/30/19 11:25 Eosinophils % 4.8 % (0.0-5.0) 01/30/19 11:25 Basophils % 1.1 % (0.0-2.0) 01/30/19 11:25 Sodium 142 mEq/L (136-145) 01/30/19 11:25 Potassium 3.8 mEq/L (3.5-5.1) 01/30/19 11:25 Chloride 107 mEq/L (98-107) 01/30/19 11:25 Carbon Dioxide 26.8 mEq/L (21.0-31.0) 01/30/19 11:25 Anion Gap 12.0 (7.0-16.0) 01/30/19 11:25 BUN 16 mg/dL (7-25) 01/30/19 11:25 Creatinine 0.9 mg/dL (0.7-1.3) 01/30/19 11:25 Est GFR ( Amer) > 60.0 ml/min (>90) 01/30/19 11:25 Est GFR (Non-Af Amer) > 60.0 ml/min 01/30/19 11:25 BUN/Creatinine Ratio 17.8 01/30/19 11:25 Glucose 103 mg/dL (70-105) 01/30/19 11:25 Calcium 9.5 mg/dL (8.6-10.3) 01/30/19 11:25 Total Bilirubin 0.5 mg/dL (0.3-1.0) 01/30/19 11:25 AST 39 U/L (13-39) 01/30/19 11:25 ALT 61 U/L (7-52) H 01/30/19 11:25 Alkaline Phosphatase 69 U/L (34-104) 01/30/19 11:25 Total Protein 7.3 gm/dL (6.0-8.3) 01/30/19 11:25 Albumin 3.8 gm/dL (4.2-5.5) L 01/30/19 11:25 Globulin 3.5 gm/dL 01/30/19 11:25 Albumin/Globulin Ratio 1.1 (1.0-1.8) 01/30/19 11:25 Triglycerides 96 mg/dL (<150) 01/30/19 11:25 Cholesterol 103 mg/dL (<200) 01/30/19 11:25 LDL Cholesterol Direct 55 mg/dL (75-193) L 01/30/19 11:25 HDL Cholesterol 39 mg/dL (23-92) 01/30/19 11:25 Valproic Acid 55.0 ug/mL (50.0-100.0) 02/07/19 06:10 [place] 0.21 mmol/L (0.5-1.0) L 02/07/19 06:10 RPR NONREACTIVE (NONREACTIVE) 01/30/19 11:25 - Physical Exam Vitals and I&O: Vital Signs Temp 97.1 F 02/08/19 06:34 Pulse 59 02/08/19 08:25 Resp 19 02/08/19 06:34 BP 123/79 02/08/19 08:26 Pulse Ox 94 02/08/19 06:34 Intake & Output 02/07/19 02/08/19 02/08/19 18:59 06:59 18:59 Intake Total 1500 24 Balance 1500 24 Intake: Oral 1500 24 Other: # Voids 3 # Bowel Movements 0 Active Medications: Current Medications Acetaminophen (Tylenol) 650 mg PO Q4HR PRN PRN Reason: Mild Pain / Temp above 100 Stop: 03/31/19 10:19 Last Admin: 01/30/19 17:40 Dose: 650 mg Al Hydrox/Mg Hydrox/Simethicone (Maalox) 30 ml PO Q4HR PRN PRN Reason: GI DISTRESS Stop: 03/31/19 10:19 Amlodipine Besylate (Norvasc) 10 mg PO DAILY [facility] Stop: 04/01/19 08:59 Last Admin: 02/08/19 08:25 Dose: 10 mg Ciprofloxacin (Cipro) 500 mg PO BID [facility] Stop: 03/31/19 16:59 Last Admin: 02/08/19 08:26 Dose: 500 mg Divalproex Sodium (Depakote Dr) 500 mg PO BID [facility]; Protocol Stop: 03/31/19 23:29 Last Admin: 02/08/19 08:26 Dose: 500 mg Hydrochlorothiazide (Hctz) 25 mg PO DAILY [facility] Stop: 04/01/19 08:59 Last Admin: 02/08/19 08:26 Dose: 25 mg Levothyroxine Sodium (Synthroid) 0.1 mg PO QDAC [facility] Stop: 04/01/19 07:29 Last Admin: 02/08/19 06:40 Dose: 0.1 mg Lisinopril (Zestril) 5 mg PO DAILY [facility] Stop: 04/07/19 10:14 Last Admin: 02/08/19 08:25 Dose: 5 mg [place] Carbonate (Eskalith) 300 mg PO BID [facility]; Protocol Stop: 04/02/19 16:59 Last Admin: 02/08/19 08:27 Dose: 300 mg Lorazepam (Ativan) 0.5 mg PO Q4HR PRN; Protocol PRN Reason: Anxiety Stop: 03/01/19 10:19 Last Admin: 02/08/19 05:12 Dose: 0.5 mg Magnesium Hydroxide (Milk Of Magnesia) 30 ml PO HS PRN PRN Reason: Constipation Multivitamins/Vitamin C (Theragran) 1 tab PO DAILY [facility] Stop: 04/01/19 08:59 Last Admin: 02/08/19 08:27 Dose: 1 tab Promethazine HCl/Dextromethorphan (Phenergan Dm 6.25/15mg-5 Ml) 10 ml PO Q4HR PRN PRN Reason: Cough Stop: 03/31/19 13:11 Risperidone (Risperdal) 4 mg PO BID [facility]; Protocol Stop: 03/31/19 16:59 Last Admin: 02/08/19 08:27 Dose: 4 mg Trazodone HCl (Desyrel) 100 mg PO HS [facility]; Protocol Stop: 04/01/19 20:59 Last Admin: 02/07/19 20:50 Dose: 100 mg Vitamin B Complex/Vit C/Folic Acid (Vitamin B Complex W/Vitamin C) 1 tab PO DAILY [facility] Stop: 04/01/19 08:59 Last Admin: 02/08/19 08:27 Dose: 1 tab Zolpidem Tartrate (Ambien) 5 mg PO HS PRN PRN Reason: Insomnia Stop: 03/31/19 10:19 Last Admin: 02/08/19 00:00 Dose: 5 mg General: alert HEENT: NC/AT, PERRLA, EOMI Neck: Supple, No JVD, No thyromegaly, No LAD Lungs: CTAB Cardiovascular: RRR, Normal S1, Normal S2 Extremities: clear Neurological: no change, alert - Procedures Procedures: Procedures Procedure Code Date INDIVID PSYCHOTHERAP NEC 94.39 09/27/08 OTHER GROUP THERAPY 94.44 10/14/08 RECREATIONAL THERAPY 93.81 10/14/08 Internal Medicine Assmt/Plan - Assessment Assessment: ACUTE PSYCH DECOMPENSATION HISTORY OF SCHIZOPHRENIA/PSYCHOAFFECTIVE D/O HISTORY OF HYPOTHYROIDISM ESSENTIAL/SYSTEMIC HTN NICOTINE DEPENDENCE POSSIBLE BRONCHITIS-clinically stable. LEFT APEX NODULE--FOLLOW CT SCAN OUTPT - Plan Plan: CONT WITH CURRENT IN-PATIENT PSYCH SUPPORTIVE CARE AND MGT CONT WITH AMLODIPINE 10MG QDAY, HCTZ 25MG QDAY/CLONIDINE PRN, START LISINOPRIL 5MG QDAY CONT WITH LEVOTHYROXINE 100MCG QDAY S/P CIPRO, PHENERGAN DM PRN Nutritional Asmnt/Malnutr-PDOC - Dietary Evaluation Malnutrition Findings (Please click <Entered> for more info): Nutritional Asmnt/Malnutrition Start: 02/05/19 13: 09 Text: Status: Complete Freq: Protocol: Document 02/05/19 13:32 LCHENG (Rec: 02/05/19 14:11 [email or web address]) Nutritional Asmnt/Malnutrition Patient General Information Nutritional Screening Low Risk Diagnosis psychosis Pertinent Medical Hx/Surgical Hx schizophrenia, depression, bipolar, hypothyroidism, pancreatic insufficency, HTN Subjective Information Pt seen in patio after lunch. Per EMR, PO intake 100%. Current Diet Order/ Nutrition Support regular Pertinent Medications synthroid, theragran, vit B complex Pertinent Labs 01/30 alb 3.8 Nutritional Hx/Data Height 1.73 m Height (Calculated Centimeters) 172.7 Current Weight (lbs) 55.792 kg Weight (Calculated Kilograms) 55.8 Weight (Calculated Grams) 38676.9 [place] Body Weight 154 Body Mass Index (BMI) 18.7 Weight Status Approriate GI Symptoms GI Symptoms None Last BM 02/04 Difficult in: None Skin Integrity/Comment: intact Current %PO Good (75-100%) Estimated Nutritional Goals BEE in Kcals: Using Current wt Calories/Kcals/Kg 27-32 Kcals Calculated 1188-6161 Protein: Using Current wt Protein g/k Protein Calculated 56 Fluid: ml 1512-1792ml (1ml/kcal) Nutritional Problem No current Nutrition Prob Problem n/A Malnutrition Alert Is there a minimum of two criteria No selected? Query Text:Check all the applicable criteria. A minimum of two criteria are recommended for diagnosis of either severe or non-severe malnutrition. Malnutrition Related to Morbid Obesity Malnutrition related to morbid obesity No Intervention/Recommendation Comments 1. Continue with regular diet as ordered. 2. Monitor PO intake, wt, labs and skin integrity 3. F/U as low risk in 7 days Expected Outcomes/Goals Expected Outcomes/Goals 1. PO intake to meet at least 75% of nutritional needs. 2. Wt stability, skin to remain intact, labs to approach WNL.
--- NOTE | 2019-02-08 22:27 | Progress Notes ---
DATE: 02/08/2019 PSYCHIATRIC PROGRESS NOTE SUBJECTIVE: Chart reviewed and the patient interviewed. Also discussed the patient's condition with the staff and reviewed records and labs. The patient still has episodes of irritability and agitation. The patient also is still suspicious and paranoid and wandering around the unit aimlessly. Also, is still having mood swings. On the other hand, the patient seems to be easier to redirect him and is compliant with taking his medications with no side effects of medications. ASSESSMENT: The patient is still psychotic and exhibiting manic behavior. TREATMENT PLAN: Continue monitoring his behavior. Also, continue Depakote and Risperdal same dose. Also, continue to work on behavior modification and on discharge plans. JOB# [id number]
[2019-02-09] MEDS: Levothyroxine 0.1 Mg Tab PO SCH (07:02)
[2019-02-09] MEDS: risperiDONE 4 mg Tab PO SCH ×2 (08:40→16:57)
[2019-02-09] MEDS: Vitamin B Complex w/Vitamin C Tab PO SCH (08:42)
[2019-02-09] MEDS: Multivitamin Tab PO SCH (08:43)
--- NOTE | 2019-02-09 14:20 | Discharge Summary ---
DATE OF DISCHARGE: 02/09/2019 FINAL DIAGNOSIS/PRIMARY DIAGNOSIS: Bipolar disorder, manic episode, moderate to severe, with psychotic features. MEDICAL DIAGNOSES: None. REASON FOR HOSPITALIZATION: The patient was admitted to the hospital because of the ____ and rambling and psychotic and difficult to redirect and constantly talking nonsense. HOSPITAL COURSE: The patient continued to be agitated and rambling and nonsense. Also, needs a lot of redirections. The patient was given Depakote in a dose of 500 mg twice a day and also he was given Risperdal in a dose of 1 mg twice a day and also trazodone 100 mg at bedtime. Gradually, the patient's affect was brighter, and the patient was less irritable and less agitated. Also, was able to cooperate and to comply with directions and with treatment plans. The patient also denied any intention to harm himself or others. The patient was discharged back to the snf where he had been living. Physical exam of the patient showed that the patient had hypothyroidism and hypertension. No major medical problems while in the hospital. Blood workup was basically within normal. The Depakote blood level that was done on 02/07 came back to 55 and lithium level that was done on the same day did come back to be 0.21, which is below therapeutic level, but can be monitored in the snf. AFTER DISCHARGE PLANS: The patient discharged from the hospital with plans for treatment in the snf. EXPECTED OUTCOME AFTER DISCHARGE: Fair if the patient continues with his treatment and continue with followup JOB# [id number]
--- NOTE | 2019-02-09 18:32 | Internal Medicine Prog Note ---
Internal Medicine Subjective - Subjective Service Date: 02/09/19 (COMFORTABLE) Patient is:: awake Per staff patient has:: no adverse event Internal Medicine Objective - Results Result Diagrams: 01/30/19 11:25 01/30/19 11:25 Recent Labs: Laboratory Last Values WBC 8.2 Th/cmm (4.8-10.8) 01/30/19 11:25 RBC 4.41 Mil/cmm (4.30-5.70) 01/30/19 11:25 Hgb 13.1 gm/dL (12-16) 01/30/19 11:25 Hct 39.6 % (41.0-60) L 01/30/19 11:25 MCV 90.0 fl (80-99) 01/30/19 11:25 MCH 29.7 pg (26.0-30.0) 01/30/19 11:25 MCHC Differential 33.0 pg (28.0-36.0) 01/30/19 11:25 RDW 13.6 % (11.5-20.0) 01/30/19 11:25 Plt Count 285 Th/cmm (150-400) 01/30/19 11:25 MPV 8.3 fl 01/30/19 11:25 Neutrophils % 62.6 % (40.0-80.0) 01/30/19 11:25 Lymphocytes % 24.8 % (20.0-50.0) 01/30/19 11:25 Monocytes % 6.7 % (2.0-10.0) 01/30/19 11:25 Eosinophils % 4.8 % (0.0-5.0) 01/30/19 11:25 Basophils % 1.1 % (0.0-2.0) 01/30/19 11:25 Sodium 142 mEq/L (136-145) 01/30/19 11:25 Potassium 3.8 mEq/L (3.5-5.1) 01/30/19 11:25 Chloride 107 mEq/L (98-107) 01/30/19 11:25 Carbon Dioxide 26.8 mEq/L (21.0-31.0) 01/30/19 11:25 Anion Gap 12.0 (7.0-16.0) 01/30/19 11:25 BUN 16 mg/dL (7-25) 01/30/19 11:25 Creatinine 0.9 mg/dL (0.7-1.3) 01/30/19 11:25 Est GFR ( Amer) > 60.0 ml/min (>90) 01/30/19 11:25 Est GFR (Non-Af Amer) > 60.0 ml/min 01/30/19 11:25 BUN/Creatinine Ratio 17.8 01/30/19 11:25 Glucose 103 mg/dL (70-105) 01/30/19 11:25 Calcium 9.5 mg/dL (8.6-10.3) 01/30/19 11:25 Total Bilirubin 0.5 mg/dL (0.3-1.0) 01/30/19 11:25 AST 39 U/L (13-39) 01/30/19 11:25 ALT 61 U/L (7-52) H 01/30/19 11:25 Alkaline Phosphatase 69 U/L (34-104) 01/30/19 11:25 Total Protein 7.3 gm/dL (6.0-8.3) 01/30/19 11:25 Albumin 3.8 gm/dL (4.2-5.5) L 01/30/19 11:25 Globulin 3.5 gm/dL 01/30/19 11:25 Albumin/Globulin Ratio 1.1 (1.0-1.8) 01/30/19 11:25 Triglycerides 96 mg/dL (<150) 01/30/19 11:25 Cholesterol 103 mg/dL (<200) 01/30/19 11:25 LDL Cholesterol Direct 55 mg/dL (75-193) L 01/30/19 11:25 HDL Cholesterol 39 mg/dL (23-92) 01/30/19 11:25 Valproic Acid 55.0 ug/mL (50.0-100.0) 02/07/19 06:10 [place] 0.21 mmol/L (0.5-1.0) L 02/07/19 06:10 RPR NONREACTIVE (NONREACTIVE) 01/30/19 11:25 - Physical Exam Vitals and I&O: Vital Signs Temp 98.0 F 02/09/19 14:00 Pulse 69 02/09/19 14:00 Resp 18 02/09/19 14:00 BP 124/70 02/09/19 14:00 Pulse Ox 98 02/09/19 14:00 Intake & Output 02/08/19 02/09/19 02/09/19 18:59 06:59 18:59 Intake Total 0240 266 1145 Balance 2380 392 1335 Intake: Oral 1906 180 8911 Other: # Voids 4 2 4 # Bowel Movements 1 0 1 Active Medications: Current Medications Acetaminophen (Tylenol) 650 mg PO Q4HR PRN PRN Reason: Mild Pain / Temp above 100 Stop: 03/31/19 10:19 Last Admin: 02/09/19 08:42 Dose: 650 mg Al Hydrox/Mg Hydrox/Simethicone (Maalox) 30 ml PO Q4HR PRN PRN Reason: GI DISTRESS Stop: 03/31/19 10:19 Amlodipine Besylate (Norvasc) 10 mg PO DAILY [facility] Stop: 04/01/19 08:59 Last Admin: 02/09/19 08:40 Dose: 10 mg Divalproex Sodium (Depakote Dr) 500 mg PO BID [facility]; Protocol Stop: 03/31/19 23:29 Last Admin: 02/09/19 16:57 Dose: 500 mg Hydrochlorothiazide (Hctz) 25 mg PO DAILY [facility] Stop: 04/01/19 08:59 Last Admin: 02/09/19 08:39 Dose: 25 mg Levothyroxine Sodium (Synthroid) 0.1 mg PO QDAC [facility] Stop: 04/01/19 07:29 Last Admin: 02/09/19 07:02 Dose: 0.1 mg Lisinopril (Zestril) 5 mg PO DAILY [facility] Stop: 04/07/19 10:14 Last Admin: 02/09/19 08:41 Dose: 5 mg [place] Carbonate (Eskalith) 300 mg PO BID [facility]; Protocol Stop: 04/02/19 16:59 Last Admin: 02/09/19 16:57 Dose: 300 mg Lorazepam (Ativan) 0.5 mg PO Q4HR PRN; Protocol PRN Reason: Anxiety Stop: 03/01/19 10:19 Last Admin: 02/08/19 21:10 Dose: 0.5 mg Magnesium Hydroxide (Milk Of Magnesia) 30 ml PO HS PRN PRN Reason: Constipation Multivitamins/Vitamin C (Theragran) 1 tab PO DAILY [facility] Stop: 04/01/19 08:59 Last Admin: 02/09/19 08:43 Dose: 1 tab Promethazine HCl/Dextromethorphan (Phenergan Dm 6.25/15mg-5 Ml) 10 ml PO Q4HR PRN PRN Reason: Cough Stop: 03/31/19 13:11 Risperidone (Risperdal) 4 mg PO BID [facility]; Protocol Stop: 03/31/19 16:59 Last Admin: 02/09/19 16:57 Dose: 4 mg Trazodone HCl (Desyrel) 100 mg PO HS [facility]; Protocol Stop: 04/01/19 20:59 Last Admin: 02/08/19 20:27 Dose: 100 mg Vitamin B Complex/Vit C/Folic Acid (Vitamin B Complex W/Vitamin C) 1 tab PO DAILY [facility] Stop: 04/01/19 08:59 Last Admin: 02/09/19 08:42 Dose: 1 tab Zolpidem Tartrate (Ambien) 5 mg PO HS PRN PRN Reason: Insomnia Stop: 03/31/19 10:19 Last Admin: 02/08/19 00:00 Dose: 5 mg General: alert HEENT: NC/AT, PERRLA, EOMI Neck: Supple, No JVD, No thyromegaly, No LAD Lungs: CTAB Cardiovascular: RRR, Normal S1, Normal S2 Extremities: clear Neurological: no change, alert - Procedures Procedures: Procedures Procedure Code Date INDIVID PSYCHOTHERAP NEC 94.39 09/27/08 OTHER GROUP THERAPY 94.44 10/14/08 RECREATIONAL THERAPY 93.81 10/14/08 Internal Medicine Assmt/Plan - Assessment Assessment: ACUTE PSYCH DECOMPENSATION HISTORY OF SCHIZOPHRENIA/PSYCHOAFFECTIVE D/O HISTORY OF HYPOTHYROIDISM ESSENTIAL/SYSTEMIC HTN NICOTINE DEPENDENCE POSSIBLE BRONCHITIS-clinically stable. LEFT APEX NODULE--FOLLOW CT SCAN OUTPT - Plan Plan: CONT WITH CURRENT IN-PATIENT PSYCH SUPPORTIVE CARE AND MGT CONT WITH AMLODIPINE 10MG QDAY, HCTZ 25MG QDAY/CLONIDINE PRN, START LISINOPRIL 5MG QDAY CONT WITH LEVOTHYROXINE 100MCG QDAY S/P CIPRO, PHENERGAN DM PRN Nutritional Asmnt/Malnutr-PDOC - Dietary Evaluation Malnutrition Findings (Please click <Entered> for more info): Nutritional Asmnt/Malnutrition Start: 02/05/19 13: 09 Text: Status: Complete Freq: Protocol: Document 02/05/19 13:32 LCHENG (Rec: 02/05/19 14:11 [email or web address]) Nutritional Asmnt/Malnutrition Patient General Information Nutritional Screening Low Risk Diagnosis psychosis Pertinent Medical Hx/Surgical Hx schizophrenia, depression, bipolar, hypothyroidism, pancreatic insufficency, HTN Subjective Information Pt seen in patio after lunch. Per EMR, PO intake 100%. Current Diet Order/ Nutrition Support regular Pertinent Medications synthroid, theragran, vit B complex Pertinent Labs 01/30 alb 3.8 Nutritional Hx/Data Height 1.73 m Height (Calculated Centimeters) 172.7 Current Weight (lbs) 55.792 kg Weight (Calculated Kilograms) 55.8 Weight (Calculated Grams) 85857.9 [place] Body Weight 154 Body Mass Index (BMI) 18.7 Weight Status Approriate GI Symptoms GI Symptoms None Last BM 02/04 Difficult in: None Skin Integrity/Comment: intact Current %PO Good (75-100%) Estimated Nutritional Goals BEE in Kcals: Using Current wt Calories/Kcals/Kg 27-32 Kcals Calculated 2965-8588 Protein: Using Current wt Protein g/k Protein Calculated 56 Fluid: ml 1512-1792ml (1ml/kcal) Nutritional Problem No current Nutrition Prob Problem n/A Malnutrition Alert Is there a minimum of two criteria No selected? Query Text:Check all the applicable criteria. A minimum of two criteria are recommended for diagnosis of either severe or non-severe malnutrition. Malnutrition Related to Morbid Obesity Malnutrition related to morbid obesity No Intervention/Recommendation Comments 1. Continue with regular diet as ordered. 2. Monitor PO intake, wt, labs and skin integrity 3. F/U as low risk in 7 days Expected Outcomes/Goals Expected Outcomes/Goals 1. PO intake to meet at least 75% of nutritional needs. 2. Wt stability, skin to remain intact, labs to approach WNL.
[2019-02-10] MEDS: Levothyroxine 0.1 Mg Tab PO SCH (06:35)
[2019-02-10] MEDS: risperiDONE 4 mg Tab PO SCH ×2 (08:30→16:06)
[2019-02-10] MEDS: Vitamin B Complex w/Vitamin C Tab PO SCH (08:30)
[2019-02-10] MEDS: Multivitamin Tab PO SCH (08:30)
--- NOTE | 2019-02-10 10:17 | General Progress Note ---
Subjective - Review of Systems Service Date: 02/10/19 Subjective: I am fine Objective - Results Result Diagrams: 01/30/19 11:25 01/30/19 11:25 Recent Labs: Laboratory Last Values WBC 8.2 Th/cmm (4.8-10.8) 01/30/19 11:25 RBC 4.41 Mil/cmm (4.30-5.70) 01/30/19 11:25 Hgb 13.1 gm/dL (12-16) 01/30/19 11:25 Hct 39.6 % (41.0-60) L 01/30/19 11:25 MCV 90.0 fl (80-99) 01/30/19 11:25 MCH 29.7 pg (26.0-30.0) 01/30/19 11:25 MCHC Differential 33.0 pg (28.0-36.0) 01/30/19 11:25 RDW 13.6 % (11.5-20.0) 01/30/19 11:25 Plt Count 285 Th/cmm (150-400) 01/30/19 11:25 MPV 8.3 fl 01/30/19 11:25 Neutrophils % 62.6 % (40.0-80.0) 01/30/19 11:25 Lymphocytes % 24.8 % (20.0-50.0) 01/30/19 11:25 Monocytes % 6.7 % (2.0-10.0) 01/30/19 11:25 Eosinophils % 4.8 % (0.0-5.0) 01/30/19 11:25 Basophils % 1.1 % (0.0-2.0) 01/30/19 11:25 Sodium 142 mEq/L (136-145) 01/30/19 11:25 Potassium 3.8 mEq/L (3.5-5.1) 01/30/19 11:25 Chloride 107 mEq/L (98-107) 01/30/19 11:25 Carbon Dioxide 26.8 mEq/L (21.0-31.0) 01/30/19 11:25 Anion Gap 12.0 (7.0-16.0) 01/30/19 11:25 BUN 16 mg/dL (7-25) 01/30/19 11:25 Creatinine 0.9 mg/dL (0.7-1.3) 01/30/19 11:25 Est GFR ( Amer) > 60.0 ml/min (>90) 01/30/19 11:25 Est GFR (Non-Af Amer) > 60.0 ml/min 01/30/19 11:25 BUN/Creatinine Ratio 17.8 01/30/19 11:25 Glucose 103 mg/dL (70-105) 01/30/19 11:25 Calcium 9.5 mg/dL (8.6-10.3) 01/30/19 11:25 Total Bilirubin 0.5 mg/dL (0.3-1.0) 01/30/19 11:25 AST 39 U/L (13-39) 01/30/19 11:25 ALT 61 U/L (7-52) H 01/30/19 11:25 Alkaline Phosphatase 69 U/L (34-104) 01/30/19 11:25 Total Protein 7.3 gm/dL (6.0-8.3) 01/30/19 11:25 Albumin 3.8 gm/dL (4.2-5.5) L 01/30/19 11:25 Globulin 3.5 gm/dL 01/30/19 11:25 Albumin/Globulin Ratio 1.1 (1.0-1.8) 01/30/19 11:25 Triglycerides 96 mg/dL (<150) 01/30/19 11:25 Cholesterol 103 mg/dL (<200) 01/30/19 11:25 LDL Cholesterol Direct 55 mg/dL (75-193) L 01/30/19 11:25 HDL Cholesterol 39 mg/dL (23-92) 01/30/19 11:25 Valproic Acid 55.0 ug/mL (50.0-100.0) 02/07/19 06:10 [place] 0.21 mmol/L (0.5-1.0) L 02/07/19 06:10 RPR NONREACTIVE (NONREACTIVE) 01/30/19 11:25 - Physical Exam Vitals and I&O: Vital Signs Temp 97.3 F 02/10/19 06:09 Pulse 66 02/10/19 08:32 Resp 19 02/10/19 06:09 BP 131/78 02/10/19 08:32 Pulse Ox 96 02/10/19 06:09 Intake & Output 02/09/19 02/10/19 02/10/19 18:59 06:59 18:59 Intake Total 1200 360 Balance 1200 360 Intake: Oral 1200 360 Other: # Voids 4 1 # Bowel Movements 1 0 Active Medications: Current Medications Acetaminophen (Tylenol) 650 mg PO Q4HR PRN PRN Reason: Mild Pain / Temp above 100 Stop: 03/31/19 10:19 Last Admin: 02/09/19 08:42 Dose: 650 mg Al Hydrox/Mg Hydrox/Simethicone (Maalox) 30 ml PO Q4HR PRN PRN Reason: GI DISTRESS Stop: 03/31/19 10:19 Amlodipine Besylate (Norvasc) 10 mg PO DAILY [facility] Stop: 04/01/19 08:59 Last Admin: 02/10/19 08:32 Dose: 10 mg Divalproex Sodium (Depakote Dr) 500 mg PO BID [facility]; Protocol Stop: 03/31/19 23:29 Last Admin: 02/10/19 08:30 Dose: 500 mg Hydrochlorothiazide (Hctz) 25 mg PO DAILY [facility] Stop: 04/01/19 08:59 Last Admin: 02/10/19 08:31 Dose: 25 mg Levothyroxine Sodium (Synthroid) 0.1 mg PO QDAC [facility] Stop: 04/01/19 07:29 Last Admin: 02/10/19 06:35 Dose: 0.1 mg Lisinopril (Zestril) 5 mg PO DAILY [facility] Stop: 04/07/19 10:14 Last Admin: 02/10/19 08:32 Dose: 5 mg [place] Carbonate (Eskalith) 300 mg PO BID [facility]; Protocol Stop: 04/02/19 16:59 Last Admin: 02/10/19 08:30 Dose: 300 mg Lorazepam (Ativan) 0.5 mg PO Q4HR PRN; Protocol PRN Reason: Anxiety Stop: 03/01/19 10:19 Last Admin: 02/08/19 21:10 Dose: 0.5 mg Magnesium Hydroxide (Milk Of Magnesia) 30 ml PO HS PRN PRN Reason: Constipation Multivitamins/Vitamin C (Theragran) 1 tab PO DAILY [facility] Stop: 04/01/19 08:59 Last Admin: 02/10/19 08:30 Dose: 1 tab Promethazine HCl/Dextromethorphan (Phenergan Dm 6.25/15mg-5 Ml) 10 ml PO Q4HR PRN PRN Reason: Cough Stop: 03/31/19 13:11 Risperidone (Risperdal) 4 mg PO BID [facility]; Protocol Stop: 03/31/19 16:59 Last Admin: 02/10/19 08:30 Dose: 4 mg Trazodone HCl (Desyrel) 100 mg PO HS [facility]; Protocol Stop: 04/01/19 20:59 Last Admin: 02/09/19 20:26 Dose: 100 mg Vitamin B Complex/Vit C/Folic Acid (Vitamin B Complex W/Vitamin C) 1 tab PO DAILY [facility] Stop: 04/01/19 08:59 Last Admin: 02/10/19 08:30 Dose: 1 tab Zolpidem Tartrate (Ambien) 5 mg PO HS PRN PRN Reason: Insomnia Stop: 03/31/19 10:19 Last Admin: 02/09/19 22:22 Dose: 5 mg General: Alert, Other (Confused) HEENT: Atraumatic Cardiovascular: Regular rate Lungs: Clear to auscultation Abdomen: Bowel sounds Extremities: Other (No edema) Neurological: Normal gait Skin: Breakdown (not oriented, calm), Other (Warm and dry) - Procedures Procedures: Procedures Procedure Code Date INDIVID PSYCHOTHERAP NEC 94.39 09/27/08 OTHER GROUP THERAPY 94.44 10/14/08 RECREATIONAL THERAPY 93.81 10/14/08 Assessment/Plan - Assessment Assessment: Patient is sleeping but arousable, calm, in no acute distress. Awaiting placement. Dx: Psychosis, Schizophrenia, Hypothyroidism, HTN, Left apex nodule. Will continue to monitor. - Plan Plan: Patient follow by Psychiatry, with Levothyroxine and amlodipine, lisinopril and HCTZ. Awaiting placement. Nutritional Asmnt/Malnutr-PDOC - Dietary Evaluation Malnutrition Findings (Please click <Entered> for more info): Nutritional Asmnt/Malnutrition Start: 02/05/19 13: 09 Text: Status: Complete Freq: Protocol: Document 02/05/19 13:32 [email or web address] (Rec: 02/05/19 14:11 [email or web address]) Nutritional Asmnt/Malnutrition Patient General Information Nutritional Screening Low Risk Diagnosis psychosis Pertinent Medical Hx/Surgical Hx schizophrenia, depression, bipolar, hypothyroidism, pancreatic insufficency, HTN Subjective Information Pt seen in patio after lunch. Per EMR, PO intake 100%. Current Diet Order/ Nutrition Support regular Pertinent Medications synthroid, theragran, vit B complex Pertinent Labs 01/30 alb 3.8 Nutritional Hx/Data Height 1.73 m Height (Calculated Centimeters) 172.7 Current Weight (lbs) 55.792 kg Weight (Calculated Kilograms) 55.8 Weight (Calculated Grams) 82484.9 [place] Body Weight 154 Body Mass Index (BMI) 18.7 Weight Status Approriate GI Symptoms GI Symptoms None Last BM 02/04 Difficult in: None Skin Integrity/Comment: intact Current %PO Good (75-100%) Estimated Nutritional Goals BEE in Kcals: Using Current wt Calories/Kcals/Kg 27-32 Kcals Calculated 0275-5846 Protein: Using Current wt Protein g/k Protein Calculated 56 Fluid: ml 1512-1792ml (1ml/kcal) Nutritional Problem No current Nutrition Prob Problem n/A Malnutrition Alert Is there a minimum of two criteria No selected? Query Text:Check all the applicable criteria. A minimum of two criteria are recommended for diagnosis of either severe or non-severe malnutrition. Malnutrition Related to Morbid Obesity Malnutrition related to morbid obesity No Intervention/Recommendation Comments 1. Continue with regular diet as ordered. 2. Monitor PO intake, wt, labs and skin integrity 3. F/U as low risk in 7 days Expected Outcomes/Goals Expected Outcomes/Goals 1. PO intake to meet at least 75% of nutritional needs. 2. Wt stability, skin to remain intact, labs to approach WNL.
--- NOTE | 2019-02-11 04:29 | Progress Notes ---
DATE: 02/10/2019 FOLLOWUP PROGRESS NOTE SUBJECTIVE: Case was discussed with staff of the patient, reviewed records. , covering for Dr. Vallejo. The patient was supposed have been discharged yesterday; however, he was not picked up by the nursing facility. The patient denies any intent to harm self or anybody. No side effects of the medication, no sedation or nausea. We are still working on discharge plan to the facility. Meanwhile, we will continue to work with the patient in group therapy, milieu therapy, and adjust medication as needed. JOB# [id number] NAHOMY
[2019-02-11] MEDS: Levothyroxine 0.1 Mg Tab PO SCH (06:37)
[2019-02-11] MEDS: risperiDONE 4 mg Tab PO SCH ×2 (08:29→16:53)
[2019-02-11] MEDS: Vitamin B Complex w/Vitamin C Tab PO SCH (08:30)
[2019-02-11] MEDS: Multivitamin Tab PO SCH (08:30)
--- NOTE | 2019-02-11 13:30 | Progress Notes ---
DATE: 02/11/2019 Case was discussed with staff of the patient, reviewed records. The patient is awaiting placement. He is feeling better, sleeping well, eating well. The staff tell me that he had to be evaluated by the nursing facility where he was discharged to, but they have not come to evaluate him yet and maybe by Tuesday and I explained to them that has to be sooner. He is sleeping well, eating well. No side effects to the medication, no sedation, no nausea, no extrapyramidal symptoms. The patient seems to be stable. We will continue to work with the patient in group therapy, milieu therapy, and adjust the medication as needed. JOB# [id number]
--- NOTE | 2019-02-11 15:56 | General Progress Note ---
Subjective - Review of Systems Service Date: 02/11/19 Subjective: I am fine Objective - Results Result Diagrams: 01/30/19 11:25 01/30/19 11:25 Recent Labs: Laboratory Last Values WBC 8.2 Th/cmm (4.8-10.8) 01/30/19 11:25 RBC 4.41 Mil/cmm (4.30-5.70) 01/30/19 11:25 Hgb 13.1 gm/dL (12-16) 01/30/19 11:25 Hct 39.6 % (41.0-60) L 01/30/19 11:25 MCV 90.0 fl (80-99) 01/30/19 11:25 MCH 29.7 pg (26.0-30.0) 01/30/19 11:25 MCHC Differential 33.0 pg (28.0-36.0) 01/30/19 11:25 RDW 13.6 % (11.5-20.0) 01/30/19 11:25 Plt Count 285 Th/cmm (150-400) 01/30/19 11:25 MPV 8.3 fl 01/30/19 11:25 Neutrophils % 62.6 % (40.0-80.0) 01/30/19 11:25 Lymphocytes % 24.8 % (20.0-50.0) 01/30/19 11:25 Monocytes % 6.7 % (2.0-10.0) 01/30/19 11:25 Eosinophils % 4.8 % (0.0-5.0) 01/30/19 11:25 Basophils % 1.1 % (0.0-2.0) 01/30/19 11:25 Sodium 142 mEq/L (136-145) 01/30/19 11:25 Potassium 3.8 mEq/L (3.5-5.1) 01/30/19 11:25 Chloride 107 mEq/L (98-107) 01/30/19 11:25 Carbon Dioxide 26.8 mEq/L (21.0-31.0) 01/30/19 11:25 Anion Gap 12.0 (7.0-16.0) 01/30/19 11:25 BUN 16 mg/dL (7-25) 01/30/19 11:25 Creatinine 0.9 mg/dL (0.7-1.3) 01/30/19 11:25 Est GFR ( Amer) > 60.0 ml/min (>90) 01/30/19 11:25 Est GFR (Non-Af Amer) > 60.0 ml/min 01/30/19 11:25 BUN/Creatinine Ratio 17.8 01/30/19 11:25 Glucose 103 mg/dL (70-105) 01/30/19 11:25 Calcium 9.5 mg/dL (8.6-10.3) 01/30/19 11:25 Total Bilirubin 0.5 mg/dL (0.3-1.0) 01/30/19 11:25 AST 39 U/L (13-39) 01/30/19 11:25 ALT 61 U/L (7-52) H 01/30/19 11:25 Alkaline Phosphatase 69 U/L (34-104) 01/30/19 11:25 Total Protein 7.3 gm/dL (6.0-8.3) 01/30/19 11:25 Albumin 3.8 gm/dL (4.2-5.5) L 01/30/19 11:25 Globulin 3.5 gm/dL 01/30/19 11:25 Albumin/Globulin Ratio 1.1 (1.0-1.8) 01/30/19 11:25 Triglycerides 96 mg/dL (<150) 01/30/19 11:25 Cholesterol 103 mg/dL (<200) 01/30/19 11:25 LDL Cholesterol Direct 55 mg/dL (75-193) L 01/30/19 11:25 HDL Cholesterol 39 mg/dL (23-92) 01/30/19 11:25 Valproic Acid 55.0 ug/mL (50.0-100.0) 02/07/19 06:10 [place] 0.21 mmol/L (0.5-1.0) L 02/07/19 06:10 RPR NONREACTIVE (NONREACTIVE) 01/30/19 11:25 - Physical Exam Vitals and I&O: Vital Signs Temp 98.0 F 02/11/19 06:24 Pulse 73 02/11/19 08:30 Resp 20 02/11/19 06:24 BP 150/103 02/11/19 08:30 Pulse Ox 97 02/11/19 06:24 Intake & Output 02/10/19 02/11/19 02/11/19 18:59 06:59 18:59 Intake Total 1000 120 Balance 1000 120 Intake: Oral 1000 120 Other: # Voids 4 3 # Bowel Movements 0 Active Medications: Current Medications Acetaminophen (Tylenol) 650 mg PO Q4HR PRN PRN Reason: Mild Pain / Temp above 100 Stop: 03/31/19 10:19 Last Admin: 02/09/19 08:42 Dose: 650 mg Al Hydrox/Mg Hydrox/Simethicone (Maalox) 30 ml PO Q4HR PRN PRN Reason: GI DISTRESS Stop: 03/31/19 10:19 Amlodipine Besylate (Norvasc) 10 mg PO DAILY [facility] Stop: 04/01/19 08:59 Last Admin: 02/11/19 08:29 Dose: 10 mg Divalproex Sodium (Depakote Dr) 500 mg PO BID [facility]; Protocol Stop: 03/31/19 23:29 Last Admin: 02/11/19 08:28 Dose: 500 mg Hydrochlorothiazide (Hctz) 25 mg PO DAILY [facility] Stop: 04/01/19 08:59 Last Admin: 02/11/19 08:29 Dose: 25 mg Levothyroxine Sodium (Synthroid) 0.1 mg PO QDAC [facility] Stop: 04/01/19 07:29 Last Admin: 02/11/19 06:37 Dose: 0.1 mg Lisinopril (Zestril) 5 mg PO DAILY [facility] Stop: 04/07/19 10:14 Last Admin: 02/11/19 08:30 Dose: 5 mg [place] Carbonate (Eskalith) 300 mg PO BID [facility]; Protocol Stop: 04/02/19 16:59 Last Admin: 02/11/19 08:29 Dose: 300 mg Lorazepam (Ativan) 0.5 mg PO Q4HR PRN; Protocol PRN Reason: Anxiety Stop: 03/01/19 10:19 Last Admin: 02/11/19 01:41 Dose: 0.5 mg Magnesium Hydroxide (Milk Of Magnesia) 30 ml PO HS PRN PRN Reason: Constipation Multivitamins/Vitamin C (Theragran) 1 tab PO DAILY [facility] Stop: 04/01/19 08:59 Last Admin: 02/11/19 08:30 Dose: 1 tab Promethazine HCl/Dextromethorphan (Phenergan Dm 6.25/15mg-5 Ml) 10 ml PO Q4HR PRN PRN Reason: Cough Stop: 03/31/19 13:11 Risperidone (Risperdal) 4 mg PO BID [facility]; Protocol Stop: 03/31/19 16:59 Last Admin: 02/11/19 08:29 Dose: 4 mg Trazodone HCl (Desyrel) 100 mg PO HS [facility]; Protocol Stop: 04/01/19 20:59 Last Admin: 02/10/19 20:27 Dose: 100 mg Vitamin B Complex/Vit C/Folic Acid (Vitamin B Complex W/Vitamin C) 1 tab PO DAILY [facility] Stop: 04/01/19 08:59 Last Admin: 02/11/19 08:30 Dose: 1 tab Zolpidem Tartrate (Ambien) 5 mg PO HS PRN PRN Reason: Insomnia Stop: 03/31/19 10:19 Last Admin: 02/10/19 20:28 Dose: 5 mg General: Alert, Other (Confused) HEENT: Atraumatic Cardiovascular: Regular rate Lungs: Clear to auscultation Abdomen: Bowel sounds Extremities: Other (No edema) Neurological: Normal gait Skin: Breakdown (not oriented, calm), Other (Warm and dry) - Procedures Procedures: Procedures Procedure Code Date INDIVID PSYCHOTHERAP NEC 94.39 09/27/08 OTHER GROUP THERAPY 94.44 10/14/08 RECREATIONAL THERAPY 93.81 10/14/08 Assessment/Plan - Assessment Assessment: Patient is sleeping but arousable, calm, in no acute distress. Awaiting placement. Dx: Psychosis, Schizophrenia, Hypothyroidism, HTN, Left apex nodule. Will continue to monitor. - Plan Plan: Patient follow by Psychiatry, with Levothyroxine and amlodipine, lisinopril and HCTZ. Awaiting placement. Nutritional Asmnt/Malnutr-PDOC - Dietary Evaluation Malnutrition Findings (Please click <Entered> for more info): Nutritional Asmnt/Malnutrition Start: 02/05/19 13: 09 Text: Status: Complete Freq: Protocol: Document 02/05/19 13:32 [email or web address] (Rec: 02/05/19 14:11 [email or web address]) Nutritional Asmnt/Malnutrition Patient General Information Nutritional Screening Low Risk Diagnosis psychosis Pertinent Medical Hx/Surgical Hx schizophrenia, depression, bipolar, hypothyroidism, pancreatic insufficency, HTN Subjective Information Pt seen in patio after lunch. Per EMR, PO intake 100%. Current Diet Order/ Nutrition Support regular Pertinent Medications synthroid, theragran, vit B complex Pertinent Labs 01/30 alb 3.8 Nutritional Hx/Data Height 1.73 m Height (Calculated Centimeters) 172.7 Current Weight (lbs) 55.792 kg Weight (Calculated Kilograms) 55.8 Weight (Calculated Grams) 68294.9 [place] Body Weight 154 Body Mass Index (BMI) 18.7 Weight Status Approriate GI Symptoms GI Symptoms None Last BM 02/04 Difficult in: None Skin Integrity/Comment: intact Current %PO Good (75-100%) Estimated Nutritional Goals BEE in Kcals: Using Current wt Calories/Kcals/Kg 27-32 Kcals Calculated 5664-5407 Protein: Using Current wt Protein g/k Protein Calculated 56 Fluid: ml 1512-1792ml (1ml/kcal) Nutritional Problem No current Nutrition Prob Problem n/A Malnutrition Alert Is there a minimum of two criteria No selected? Query Text:Check all the applicable criteria. A minimum of two criteria are recommended for diagnosis of either severe or non-severe malnutrition. Malnutrition Related to Morbid Obesity Malnutrition related to morbid obesity No Intervention/Recommendation Comments 1. Continue with regular diet as ordered. 2. Monitor PO intake, wt, labs and skin integrity 3. F/U as low risk in 7 days Expected Outcomes/Goals Expected Outcomes/Goals 1. PO intake to meet at least 75% of nutritional needs. 2. Wt stability, skin to remain intact, labs to approach WNL.
[2019-02-12] MEDS: Levothyroxine 0.1 Mg Tab PO SCH (06:43)
[2019-02-12] MEDS: Multivitamin Tab PO SCH (08:31)
[2019-02-12] MEDS: risperiDONE 4 mg Tab PO SCH ×2 (08:31→16:34)
[2019-02-12] MEDS: Vitamin B Complex w/Vitamin C Tab PO SCH (08:31)
--- NOTE | 2019-02-12 14:01 | Progress Notes ---
DATE: 02/12/2019 Case was discussed with staff of the patient, reviewed records. The patient was supposed to have been discharged; however, the shelter is coming to evaluate him tomorrow. He continues to do well, sleeping well, eating well, though he looked somewhat disheveled, disorganized; however, he denies any current intent to harm anyone. As per her paranoia is having a side effects and we will continue to work the patient in group therapy, medication therapy, adjust medication as needed. JOB# [id number]
[2019-02-13] MEDS: Levothyroxine 0.1 Mg Tab PO SCH (06:33)
[2019-02-13] MEDS: Multivitamin Tab PO SCH (08:29)
[2019-02-13] MEDS: risperiDONE 4 mg Tab PO SCH (08:30)
[2019-02-13] MEDS: Vitamin B Complex w/Vitamin C Tab PO SCH (08:30)
--- NOTE | 2019-02-13 22:12 | General Progress Note ---
Subjective - Review of Systems Service Date: 02/13/19 Subjective: I am fine Objective - Results Result Diagrams: 01/30/19 11:25 01/30/19 11:25 Recent Labs: Laboratory Last Values WBC 8.2 Th/cmm (4.8-10.8) 01/30/19 11:25 RBC 4.41 Mil/cmm (4.30-5.70) 01/30/19 11:25 Hgb 13.1 gm/dL (12-16) 01/30/19 11:25 Hct 39.6 % (41.0-60) L 01/30/19 11:25 MCV 90.0 fl (80-99) 01/30/19 11:25 MCH 29.7 pg (26.0-30.0) 01/30/19 11:25 MCHC Differential 33.0 pg (28.0-36.0) 01/30/19 11:25 RDW 13.6 % (11.5-20.0) 01/30/19 11:25 Plt Count 285 Th/cmm (150-400) 01/30/19 11:25 MPV 8.3 fl 01/30/19 11:25 Neutrophils % 62.6 % (40.0-80.0) 01/30/19 11:25 Lymphocytes % 24.8 % (20.0-50.0) 01/30/19 11:25 Monocytes % 6.7 % (2.0-10.0) 01/30/19 11:25 Eosinophils % 4.8 % (0.0-5.0) 01/30/19 11:25 Basophils % 1.1 % (0.0-2.0) 01/30/19 11:25 Sodium 142 mEq/L (136-145) 01/30/19 11:25 Potassium 3.8 mEq/L (3.5-5.1) 01/30/19 11:25 Chloride 107 mEq/L (98-107) 01/30/19 11:25 Carbon Dioxide 26.8 mEq/L (21.0-31.0) 01/30/19 11:25 Anion Gap 12.0 (7.0-16.0) 01/30/19 11:25 BUN 16 mg/dL (7-25) 01/30/19 11:25 Creatinine 0.9 mg/dL (0.7-1.3) 01/30/19 11:25 Est GFR ( Amer) > 60.0 ml/min (>90) 01/30/19 11:25 Est GFR (Non-Af Amer) > 60.0 ml/min 01/30/19 11:25 BUN/Creatinine Ratio 17.8 01/30/19 11:25 Glucose 103 mg/dL (70-105) 01/30/19 11:25 Calcium 9.5 mg/dL (8.6-10.3) 01/30/19 11:25 Total Bilirubin 0.5 mg/dL (0.3-1.0) 01/30/19 11:25 AST 39 U/L (13-39) 01/30/19 11:25 ALT 61 U/L (7-52) H 01/30/19 11:25 Alkaline Phosphatase 69 U/L (34-104) 01/30/19 11:25 Total Protein 7.3 gm/dL (6.0-8.3) 01/30/19 11:25 Albumin 3.8 gm/dL (4.2-5.5) L 01/30/19 11:25 Globulin 3.5 gm/dL 01/30/19 11:25 Albumin/Globulin Ratio 1.1 (1.0-1.8) 01/30/19 11:25 Triglycerides 96 mg/dL (<150) 01/30/19 11:25 Cholesterol 103 mg/dL (<200) 01/30/19 11:25 LDL Cholesterol Direct 55 mg/dL (75-193) L 01/30/19 11:25 HDL Cholesterol 39 mg/dL (23-92) 01/30/19 11:25 Valproic Acid 55.0 ug/mL (50.0-100.0) 02/07/19 06:10 [place] 0.21 mmol/L (0.5-1.0) L 02/07/19 06:10 RPR NONREACTIVE (NONREACTIVE) 01/30/19 11:25 - Physical Exam Vitals and I&O: Vital Signs Temp 98 F 02/13/19 06:12 Pulse 68 02/13/19 08:30 Resp 20 02/13/19 06:12 BP 125/83 02/13/19 08:30 Pulse Ox 96 02/13/19 06:12 Intake & Output 02/13/19 02/13/19 02/14/19 06:59 18:59 06:59 Intake Total 240 Balance 240 Intake: Oral 240 Other: # Voids 3 # Bowel Movements 0 Stool Characteristics Soft General: Alert, Other (Confused) HEENT: Atraumatic Cardiovascular: Regular rate Lungs: Clear to auscultation Abdomen: Bowel sounds Extremities: Other (No edema) Neurological: Normal gait Skin: Breakdown (not oriented, calm), Other (Warm and dry) - Procedures Procedures: Procedures Procedure Code Date INDIVID PSYCHOTHERAP NEC 94.39 09/27/08 OTHER GROUP THERAPY 94.44 10/14/08 RECREATIONAL THERAPY 93.81 10/14/08 Assessment/Plan - Assessment Assessment: Patient is sleeping but arousable, calm, in no acute distress. Awaiting placement. Dx: Psychosis, Schizophrenia, Hypothyroidism, HTN, Left apex nodule. Will continue to monitor. - Plan Plan: Patient follow by Psychiatry, with Levothyroxine and amlodipine, lisinopril and HCTZ. Awaiting placement. Nutritional Asmnt/Malnutr-PDOC - Dietary Evaluation Malnutrition Findings (Please click <Entered> for more info): Nutritional Asmnt/Malnutrition Start: 02/05/19 13: 09 Text: Status: Complete Freq: Protocol: Document 02/05/19 13:32 LCHENG (Rec: 02/05/19 14:11 [email or web address]) Nutritional Asmnt/Malnutrition Patient General Information Nutritional Screening Low Risk Diagnosis psychosis Pertinent Medical Hx/Surgical Hx schizophrenia, depression, bipolar, hypothyroidism, pancreatic insufficency, HTN Subjective Information Pt seen in patio after lunch. Per EMR, PO intake 100%. Current Diet Order/ Nutrition Support regular Pertinent Medications synthroid, theragran, vit B complex Pertinent Labs 01/30 alb 3.8 Nutritional Hx/Data Height 1.73 m Height (Calculated Centimeters) 172.7 Current Weight (lbs) 55.792 kg Weight (Calculated Kilograms) 55.8 Weight (Calculated Grams) 43694.9 [place] Body Weight 154 Body Mass Index (BMI) 18.7 Weight Status Approriate GI Symptoms GI Symptoms None Last BM 02/04 Difficult in: None Skin Integrity/Comment: intact Current %PO Good (75-100%) Estimated Nutritional Goals BEE in Kcals: Using Current wt Calories/Kcals/Kg 27-32 Kcals Calculated 9844-7206 Protein: Using Current wt Protein g/k Protein Calculated 56 Fluid: ml 1512-1792ml (1ml/kcal) Nutritional Problem No current Nutrition Prob Problem n/A Malnutrition Alert Is there a minimum of two criteria No selected? Query Text:Check all the applicable criteria. A minimum of two criteria are recommended for diagnosis of either severe or non-severe malnutrition. Malnutrition Related to Morbid Obesity Malnutrition related to morbid obesity No Intervention/Recommendation Comments 1. Continue with regular diet as ordered. 2. Monitor PO intake, wt, labs and skin integrity 3. F/U as low risk in 7 days Expected Outcomes/Goals Expected Outcomes/Goals 1. PO intake to meet at least 75% of nutritional needs. 2. Wt stability, skin to remain intact, labs to approach WNL.
== END 2019-02-13 12:50 | DRG 885 ==
LOC: MSI 09:20 → GERO 09:24
PROVIDERS: ADMIT Psychiatry & Neurology Psychiatry; ATTEND Psychiatry & Neurology Psychiatry
DX: F31.2 Bipolar disorder, current episode manic severe with psychotic features (principal); F23 Brief psychotic disorder; I10 Essential (primary) hypertension; J40 Bronchitis, not specified as acute or chronic; E03.9 Hypothyroidism, unspecified; F17.210 Nicotine dependence, cigarettes, uncomplicated; R91.1 Solitary pulmonary nodule
CPT/HCPCS: 36415-UA; 71045-TC; 80053-TC; 80061-TC; 80164-TC; 80178-TC; 83036-90; 85025-TC; 86592-TC; 93005; G0410; Z7610